=== PATIENT | male | born 1955 | race Caucasian/White ===

== ENCOUNTER → 2017-12-10 11:07 | Outpatient (CLI) | payer OTHER, SELFPAY ==
--- NOTE | 2017-12-10 11:11 | DI.NM.S_ITS ---
PROCEDURE: NM BONE SCAN WHOLE BODY RADIOPHARMACEUTICAL: 20.2 mCi Tc-99m MDP IV. INDICATIONS: PROSTATE CANCER TECHNIQUE: Delayed whole-body scintigrams were obtained approximately 3-4 hours after intravenous injection of radiotracer. Anterior and posterior views were acquired from vertex to feet. Additional left and right oblique views were not obtained. COMPARISON: Nuclear bone scan 02/16/2017; CT abdomen and pelvis 09/14/2017 FINDINGS: Small focus of increased tracer activity is again noted in the right lateral margin of the distal sternum. No other suspicious uptake seen. Typical degenerative type uptake noted in the shoulders, sternoclavicular joints, wrists and knees. Soft tissue uptake is unremarkable, kidneys appearing functional without obstruction IMPRESSION: 1. Small, solitary focus of abnormal tracer uptake in the inferior sternum, unchanged. Otherwise no abnormal uptake to suggest progressive metastatic bone disease. 2. Multiple areas of uptake compatible with degenerative joint disease. Dictated by: David Ramos M.D. on 12/10/2017 at 15:48 Approved by: David Ramos M.D. on 12/10/2017 at 15:54
== END ==
PROVIDERS: PCP Internal Medicine; Visit Provider Internal Medicine Hematology & Oncology
DX: C61 Malignant neoplasm of prostate (principal)
CPT/HCPCS: 78306; A9503

== ENCOUNTER → 2018-02-12 14:40 | Outpatient (CLI) | payer OTHER, SELFPAY ==
[2018-02-12 14:56] LABS: Add Manual Diff / Slide Review NO; Basophils Percent Auto 0.9 % (0-2); Eosinophils Percent Auto 1.8 % (2-4); Hematocrit 40.6 % (41-53); Hemoglobin 13.6 g/dL (13.5-17.5); Lymphocytes Percent Auto 16.6 % (25-40); Mean Corpuscular HGB Conc 33.6 % (30-36); Mean Corpuscular Hemoglobin 27.3 PG (26-34); Mean Corpuscular Volume 81.4 fL (80-100); Monocytes Percent Auto 8.3 % (3-14); Neutrophils Absolute Auto 6200 /uL (3000-5900); Neutrophils Percent Auto 72.4 % (50-75); Platelet Count 173 X10^3/uL (150-400); Red Blood Cell Count 4.98 X10^6/uL (4.5-5.9); Red Cell Distribution Width 15.7 % (11.6-14.8); White Blood Cell Count 8.6 X10^3/uL (4.5-11.0)
[2018-02-12 15:06] LABS: Alanine Aminotransferase 47 IU/L (21-72); Albumin 4.4 g/dL (3.5-5.0); Albumin Globulin Ratio 1.3 (1.0-2.8); Alkaline Phosphatase 115 U/L (38-126); Aspartate Aminotransferase 32 IU/L (17-59); Bilirubin Total 0.6 mg/dL (0.2-1.3); Blood Urea Nitrogen 20 mg/dL (9-20); Calcium 9.8 mg/dL (8.4-10.2); Carbon Dioxide 30 mmol/L (22-32); Chloride 100 mmol/L (98-107); Estimated Glomerular Filt Rate > 60.0 mL/min (>60); Globulin 3.3 g/dL (1.7-4.1); Glucose 111 mg/dL (80-110); HEMOLYSIS < 15 (0-50); Potassium 3.7 mmol/L (3.4-5.1); Sodium 142 mmol/L (137-145); Total Protein 7.7 g/dL (6.3-8.2)
[2018-02-14 15:39] LABS: Chromogranin A, Serum 78 ng/mL (25-140)
--- NOTE | 2018-02-14 16:12 | PC.NURSE ---
Note to ISAAC re testosterone level Rev Urol. spring; 11(2): 52?60. PMCID: [id number] PMID: [id number] Effective Testosterone Suppression for Prostate Cancer: Is There a Best Castration Therapy? Rojas Fuentes MD Achieving and maintaining effective suppression of serum testosterone levels in men treated with androgen ablation is one of the essential strategies in the management of prostate cancer. Historically, a serum testosterone below 50 ng/dL was considered to be the castrate level. Current data suggest that the new target for either surgical or chemical castration is a serum testosterone level of lower than 20 ng/dL in an attempt to maximize therapeutic outcomes. Testosterone breakthrough and the [id number] effects of administration of a luteinizing hormone-releasing hormone analogue may cause testosterone levels to periodically rise, sometimes to noncastrate levels. The goal of androgen ablation is to identify those agents that will most consistently achieve and maintain the lowest testosterone levels possible. Patel words: Prostate cancer, Androgen ablation, LHRH analogues, LHRH antagonists, Testosterone Priti -please see Dr Manuel's note from 01/24.Pt calling as Casodex was added to his therapy .He had a level done /added 01/24 it was in the 26.2 and had labs done for visit next week with you but without a testosterone level.Dr Manuel noted that if he was not castration level on his testosterone he might need to change to lupron from Zoladex. The last result was his highest yet in September testosterone was 19.2 Do you want to add a testosterone level to the blood that is still in lab for 5 more days ?
[2018-02-15 14:25] LABS: Testosterone 19.6 ng/dL (71.8-623)
== END ==
PROVIDERS: Internal Medicine Hematology & Oncology; PCP Internal Medicine; Visit Provider Nurse Practitioner Gerontology
DX: C61 Malignant neoplasm of prostate (principal); C7A.098 Malignant carcinoid tumors of other sites
CPT/HCPCS: 36415; 80053; 84153; 84403; 85025; 86316

== ENCOUNTER → 2018-04-19 12:05 | Outpatient (CLI) | payer OTHER, SELFPAY ==
[2018-04-19 12:37] LABS: Add Manual Diff / Slide Review NO; Basophils Percent Auto 0.3 % (0-2); Hematocrit 38.6 % (41-53); Lymphocytes Percent Auto 18.5 % (25-40); Mean Corpuscular HGB Conc 33.7 % (30-36); Mean Corpuscular Hemoglobin 27.8 PG (26-34); Mean Corpuscular Volume 82.4 fL (80-100); Monocytes Percent Auto 7.1 % (3-14); Neutrophils Absolute Auto 5600 /uL (3000-5900); Neutrophils Percent Auto 71.1 % (50-75); Platelet Count 151 X10^3/uL (150-400); Red Blood Cell Count 4.69 X10^6/uL (4.5-5.9); Red Cell Distribution Width 14.8 % (11.6-14.8); White Blood Cell Count 7.9 X10^3/uL (4.5-11.0)
[2018-04-19 12:38] LABS: HEMOLYSIS < 15 (0-50)
[2018-04-19 13:07] LABS: Alanine Aminotransferase 32 IU/L (21-72); Albumin 4.1 g/dL (3.5-5.0); Albumin Globulin Ratio 1.4 (1.0-2.8); Alkaline Phosphatase 111 U/L (38-126); Aspartate Aminotransferase 26 IU/L (17-59); BUN Creatinine Ratio 27.1 (6-22); Bilirubin Total 0.5 mg/dL (0.2-1.3); Blood Urea Nitrogen 19 mg/dL (9-20); Calcium 9.6 mg/dL (8.4-10.2); Carbon Dioxide 29 mmol/L (22-32); Chloride 103 mmol/L (98-107); Estimated Glomerular Filt Rate > 60.0 mL/min (>60); Globulin 2.9 g/dL (1.7-4.1); Glucose 114 mg/dL (80-110); Potassium 4.4 mmol/L (3.4-5.1); Sodium 144 mmol/L (137-145)
[2018-04-19 13:14] LABS: Testosterone 19.7 ng/dL (71.8-623)
== END ==
PROVIDERS: Family Provider Internal Medicine Hematology & Oncology; PCP Internal Medicine; Visit Provider Nurse Practitioner Gerontology
DX: C61 Malignant neoplasm of prostate (principal); C7A.098 Malignant carcinoid tumors of other sites
CPT/HCPCS: 36415; 80053; 84153; 84403; 85025

== ENCOUNTER → 2018-05-16 13:06 | Outpatient (CLI) | payer OTHER, SELFPAY ==
[2018-05-16 13:45] LABS: Add Manual Diff / Slide Review NO; Basophils Percent Auto 0.6 % (0-2); Eosinophils Percent Auto 1.8 % (2-4); Hematocrit 41.2 % (41-53); Hemoglobin 13.9 g/dL (13.5-17.5); Lymphocytes Percent Auto 23.6 % (25-40); Mean Corpuscular HGB Conc 33.6 % (30-36); Mean Corpuscular Hemoglobin 27.8 PG (26-34); Mean Corpuscular Volume 82.6 fL (80-100); Monocytes Percent Auto 7.7 % (3-14); Neutrophils Absolute Auto 5200 /uL (3000-5900); Neutrophils Percent Auto 66.3 % (50-75); Platelet Count 172 X10^3/uL (150-400); Red Blood Cell Count 4.99 X10^6/uL (4.5-5.9); Red Cell Distribution Width 14.9 % (11.6-14.8); White Blood Cell Count 7.8 X10^3/uL (4.5-11.0)
[2018-05-16 14:15] LABS: Alanine Aminotransferase 30 IU/L (21-72); Albumin 4.6 g/dL (3.5-5.0); Albumin Globulin Ratio 1.4 (1.0-2.8); Alkaline Phosphatase 107 U/L (38-126); Aspartate Aminotransferase 29 IU/L (17-59); BUN Creatinine Ratio 23.8 (6-22); Bilirubin Total 0.6 mg/dL (0.2-1.3); Blood Urea Nitrogen 19 mg/dL (9-20); Calcium 9.6 mg/dL (8.4-10.2); Carbon Dioxide 33 mmol/L (22-32); Chloride 100 mmol/L (98-107); Estimated Glomerular Filt Rate > 60.0 mL/min (>60); Globulin 3.2 g/dL (1.7-4.1); Glucose 92 mg/dL (80-110); HEMOLYSIS < 15 (0-50); Potassium 4.3 mmol/L (3.4-5.1); Sodium 141 mmol/L (137-145); Total Protein 7.8 g/dL (6.3-8.2)
--- NOTE | 2018-05-22 14:45 | ONC.NAV ---
Description: Counseling Activity: Met with pt to discuss his concerns and desire to begin individual counseling. PIPE LAYER met with pt for 60-minutes to establish initial rapport, discuss counseling goals, and establish a plan for treatment. This visit is intended as a meet and greet, and will not be billed. Pt and PIPE LAYER scheduled his next visit for 05/30 at 11:00am. PIPE LAYER will f/u with obtaining pre-auth for continued visits.
== END ==
PROVIDERS: Family Provider Internal Medicine Hematology & Oncology; PCP Internal Medicine; Visit Provider Internal Medicine Hematology & Oncology
DX: C61 Malignant neoplasm of prostate (principal); C7A.8 Other malignant neuroendocrine tumors
CPT/HCPCS: 36415; 80053; 84153; 85025

== ENCOUNTER → 2018-10-03 15:45 | Outpatient (CLI) | payer OTHER, SELFPAY ==
[2018-10-03 17:05] LABS: Alanine Aminotransferase 24 IU/L (21-72); Albumin 4.3 g/dL (3.5-5.0); Albumin Globulin Ratio 1.3 (1.0-2.8); Alkaline Phosphatase 110 U/L (38-126); Aspartate Aminotransferase 23 IU/L (17-59); BUN Creatinine Ratio 21.3 (6-22); Bilirubin Total 0.3 mg/dL (0.2-1.3); Blood Urea Nitrogen 17 mg/dL (9-20); Calcium 9.1 mg/dL (8.4-10.2); Carbon Dioxide 26 mmol/L (22-32); Chloride 102 mmol/L (98-107); Estimated Glomerular Filt Rate > 60.0 mL/min (>60); Globulin 3.3 g/dL (1.7-4.1); Glucose 132 mg/dL (80-110); Potassium 3.9 mmol/L (3.4-5.1); Sodium 137 mmol/L (137-145); Total Protein 7.6 g/dL (6.3-8.2)
[2018-10-03 17:06] LABS: HEMOLYSIS < 15 (0-50)
[2018-10-03 17:36] LABS: Prostate Specific Antigen 0.131 ng/mL (0.10-4.00)
[2018-10-03 17:38] LABS: Testosterone 28.6 ng/dL (71.8-623)
[2018-10-03 18:00] LABS: Add Manual Diff / Slide Review NO; Basophils Absolute Auto 0 /uL (0-100); Basophils Percent Auto 0.5 % (0-2); Eosinophils Absolute Auto 200 /uL (0-450); Eosinophils Percent Auto 2.8 % (2-4); Hematocrit 39.9 % (41-53); Hemoglobin 13.2 g/dL (13.5-17.5); Lymphocytes Absolute Auto 1700 /uL (1100-4500); Lymphocytes Percent Auto 23.3 % (25-40); Mean Corpuscular HGB Conc 33.2 % (30-36); Mean Corpuscular Hemoglobin 27.7 PG (26-34); Mean Corpuscular Volume 83.5 fL (80-100); Monocytes Absolute Auto 600 /uL (0-900); Monocytes Percent Auto 7.8 % (3-14); Neutrophils Absolute Auto 4800 /uL (1500-7000); Neutrophils Percent Auto 65.6 % (50-75); Platelet Count 173 X10^3/uL (150-400); Red Blood Cell Count 4.78 X10^6/uL (4.5-5.9); Red Cell Distribution Width 14.6 % (11.6-14.8); White Blood Cell Count 7.3 X10^3/uL (4.5-11.0)
== END ==
PROVIDERS: Family Provider Family Medicine; PCP Family Medicine
DX: C61 Malignant neoplasm of prostate (principal)
CPT/HCPCS: 80053; 84153; 84403; 85025

== ENCOUNTER → 2019-01-09 16:20 | Outpatient (CLI) | payer OTHER, SELFPAY ==
[2019-01-09 16:42] LABS: Add Manual Diff / Slide Review NO; Basophils Absolute Auto 0 /uL (0-100); Basophils Percent Auto 0.5 % (0-2); Eosinophils Absolute Auto 200 /uL (0-450); Eosinophils Percent Auto 2.2 % (2-4); Hemoglobin 13.3 g/dL (13.5-17.5); Lymphocytes Absolute Auto 1900 /uL (1100-4500); Lymphocytes Percent Auto 19.9 % (25-40); Mean Corpuscular HGB Conc 34.3 % (30-36); Mean Corpuscular Hemoglobin 27.6 PG (26-34); Mean Corpuscular Volume 80.6 fL (80-100); Monocytes Absolute Auto 700 /uL (0-900); Monocytes Percent Auto 7.7 % (3-14); Neutrophils Absolute Auto 6800 /uL (1500-7000); Neutrophils Percent Auto 69.7 % (50-75); Platelet Count 205 X10^3/uL (150-400); Red Blood Cell Count 4.83 X10^6/uL (4.5-5.9); Red Cell Distribution Width 15.1 % (11.6-14.8); White Blood Cell Count 9.8 X10^3/uL (4.5-11.0)
[2019-01-09 16:52] LABS: Alanine Aminotransferase 27 IU/L (21-72); Albumin 4.5 g/dL (3.5-5.0); Albumin Globulin Ratio 1.3 (1.0-2.8); Alkaline Phosphatase 119 U/L (38-126); Aspartate Aminotransferase 30 IU/L (17-59); BUN Creatinine Ratio 21.1 (6-22); Bilirubin Total 0.4 mg/dL (0.2-1.3); Blood Urea Nitrogen 19 mg/dL (9-20); Calcium 9.8 mg/dL (8.4-10.2); Carbon Dioxide 29 mmol/L (22-32); Chloride 101 mmol/L (98-107); Estimated Glomerular Filt Rate > 60.0 mL/min (>60); Globulin 3.4 g/dL (1.7-4.1); Glucose 94 mg/dL (80-110); HEMOLYSIS < 15 (0-50); Sodium 139 mmol/L (137-145); Total Protein 7.9 g/dL (6.3-8.2)
[2019-01-09 17:22] LABS: Prostate Specific Antigen 0.346 ng/mL (0.10-4.00)
== END ==
LOC: LAB 16:22
PROVIDERS: Family Provider Family Medicine; PCP Family Medicine
DX: C61 Malignant neoplasm of prostate (principal)
CPT/HCPCS: 36415; 80053; 84153; 85025

== ENCOUNTER → 2019-04-16 09:23 | Outpatient (CLI) | payer OTHER, SELFPAY ==
--- NOTE | 2019-04-16 09:26 | DI.NM.S_ITS ---
PROCEDURE: [place] BONE SCAN WHOLE BODY RADIOPHARMACEUTICAL: 19.8 mCi Tc-99m MDP IV. INDICATIONS: f/u prostate cancer TECHNIQUE: Delayed whole-body scintigrams were obtained approximately 3-4 hours after intravenous injection of radiotracer. Anterior and posterior views were acquired from vertex to feet. COMPARISON: [facility], CT, CT CHEST ABD PEL W CON, 04/16/2019, 12:35. [facility], [place], [place] BONE SCAN WHOLE BODY, 12/10/2017, 14:59. FINDINGS: There is a small focus of increased uptake in the right inferior sternum, unchanged since 12/10/2017. There is a focal uptake in the lower cervical spine, also similar, most likely degenerative in nature. No lesions are identified in skull, sternum, clavicles, scapulae, ribs, bony pelvis, and visualized shafts of the long bones. There are foci of increased periarticular activity involving shoulders, sternoclavicular jointswrists, SI joints, knees and feet, compatible with degenerative/arthritic changes. Urinary uptake in bladder partially obscure sacrum and pelvis. IMPRESSION: 1. Stable increased uptake in the inferior right sternal border. 2. increased uptake in the lower cervical spine is most likely degenerative in nature. 3. Elsewhere, no definitive scintigraphic findings to suggest osseous metastasis. Dictated by: Jayashree Henson M.D. on 04/16/2019 at 17:13 Approved by: Jayashree Henson M.D. on 04/16/2019 at 18:50
--- NOTE | 2019-04-16 09:26 | DI.CT.S_ITS ---
PROCEDURE: CT CHEST ABD PEL W CON INDICATIONS: f/u prostate cancer TECHNIQUE: After the administration of oral and intravenous contrast, 5 mm thick sections acquired from the lung apices to the symphysis. 5 mm coronal and sagittal reformats were performed, with additional 7 mm coronal MIP reformats through the lungs. For radiation dose reduction, the following was used: automated exposure control, adjustment of mA and/or kV according to patient size. COMPARISON: [facility], CT, ABDOMEN/PELVIS WITH CONTRAST, 09/14/2017, 10:56. [facility], [place], NM BONE SCAN WHOLE BODY, 04/16/2019, 12:43. [facility], CT, CT ANGIO CHEST ABDOMEN, 07/11/2018, 14:01. FINDINGS: Image quality: Excellent. CHEST: Lungs and pleura: No acute airspace opacities. No pleural effusions or pneumothorax. Central and peripheral airways appear patent and normal in caliber. Mediastinum: Heart size is normal. No pericardial effusion. There is a prominent AP window lymph node measuring 1.4 cm in short axis which has increased in size compared to the prior study. No other mediastinal or hilar adenopathy. Thoracic aorta and central pulmonary arteries are normal in size. Esophagus is normal in caliber. No hiatal hernia. Chest wall: No axillary or supraclavicular adenopathy by size criteria. Thyroid gland is normal. Moderate bilateral, right worse than left gynecomastia. ABDOMEN: Solid organs: Multilobulated and diffusely hypodense liver with scattered calcifications and surgical clips. No definite new liver lesions. Gallbladder is surgically absent. Biliary system is non dilated. Pancreas enhances normally. Spleen is normal in size and enhancement. No adrenal nodules. Kidneys demonstrate normal size and enhancement, without hydronephrosis. 2 course, nonobstructing left lower pole intrarenal calcifications are stable. Punctate nonobstructing right lower pole calculus. Peritoneum and bowel: Bowel loops demonstrate normal wall thickness and caliber. Right lower quadrant ileocolonic anastomosis is present. No free fluid or air. Nodes and vessels: No retroperitoneal or mesenteric adenopathy by size criteria. Aorta and inferior vena cava are normal in size. Miscellaneous: No ventral hernias. PELVIS: Genitourinary: Bladder wall thickness is normal. There are brachytherapy seeds in definitive size prostate gland. Miscellaneous: No inguinal hernias or adenopathy. Right buttock subcutaneous soft tissue nodule. Bones: No suspicious bony lesions. No vertebral body compression fractures. Degenerative disc loss L5-S1. IMPRESSION: 1. Diminutive prostate gland contains brachytherapy seeds. 2. No evidence of new metastatic disease in the chest, abdomen, or pelvis. 3. Mildly enlarged single AP window lymph node is nonspecific given this finding in isolation. Continued attention on followup studies is recommended. 4. Hypodense liver with changes of prior hepatectomy. 5. Nonobstructing bilateral intrarenal calculi. Dictated by: Wen Hinkle M.D. on 04/16/2019 at 14:09 Approved by: Wen Hinkle M.D. on 04/16/2019 at 14:24
== END ==
PROVIDERS: Family Provider Family Medicine; PCP Family Medicine
DX: C61 Malignant neoplasm of prostate (principal); R59.0 Localized enlarged lymph nodes; N20.0 Calculus of kidney; Z90.49 Acquired absence of other specified parts of digestive tract; Z98.0 Intestinal bypass and anastomosis status
CPT/HCPCS: 71260; 74177; 78306; A9503; Q9967

== ENCOUNTER → 2019-05-22 13:32 | Outpatient (CLI) | payer OTHER, SELFPAY ==
[2019-05-22 13:52] LABS: Add Manual Diff / Slide Review NO; Basophils Absolute Auto 0 /uL (0-100); Basophils Percent Auto 0.3 % (0-2); Eosinophils Absolute Auto 200 /uL (0-450); Eosinophils Percent Auto 2.7 % (2-4); Hematocrit 39.8 % (41-53); Hemoglobin 13.4 g/dL (13.5-17.5); Lymphocytes Absolute Auto 1700 /uL (1100-4500); Lymphocytes Percent Auto 18.2 % (25-40); Mean Corpuscular HGB Conc 33.7 % (30-36); Mean Corpuscular Hemoglobin 27.2 PG (26-34); Mean Corpuscular Volume 80.7 fL (80-100); Monocytes Absolute Auto 700 /uL (0-900); Monocytes Percent Auto 8.1 % (3-14); Neutrophils Absolute Auto 6500 /uL (1500-7000); Neutrophils Percent Auto 70.7 % (50-75); Platelet Count 185 X10^3/uL (150-400); Red Blood Cell Count 4.93 X10^6/uL (4.5-5.9); Red Cell Distribution Width 14.7 % (11.6-14.8); White Blood Cell Count 9.1 X10^3/uL (4.5-11.0)
[2019-05-22 15:24] LABS: Alanine Aminotransferase 31 IU/L (21-72); Albumin 4.3 g/dL (3.5-5.0); Albumin Globulin Ratio 1.4 (1.0-2.8); Alkaline Phosphatase 127 U/L (38-126); Aspartate Aminotransferase 31 IU/L (17-59); BUN Creatinine Ratio 27.1 (6-22); Bilirubin Total 0.6 mg/dL (0.2-1.3); Blood Urea Nitrogen 19 mg/dL (9-20); Calcium 9.9 mg/dL (8.4-10.2); Carbon Dioxide 29 mmol/L (22-32); Chloride 102 mmol/L (98-107); Estimated Glomerular Filt Rate > 60.0 mL/min (>60); Glucose 114 mg/dL (80-110); HEMOLYSIS < 15 (0-50); Potassium 3.7 mmol/L (3.4-5.1); Sodium 142 mmol/L (137-145); Total Protein 7.3 g/dL (6.3-8.2)
== END ==
LOC: LAB 13:33
PROVIDERS: Family Provider Family Medicine; PCP Family Medicine
DX: C61 Malignant neoplasm of prostate (principal)
CPT/HCPCS: 36415; 80053; 84153; 85025

== ENCOUNTER → 2019-06-23 13:17 | Outpatient (CLI) | payer OTHER, SELFPAY ==
[2019-06-23 13:57] LABS: Add Manual Diff / Slide Review NO; Basophils Absolute Auto 0 /uL (0-100); Basophils Percent Auto 0.5 % (0-2); Eosinophils Absolute Auto 200 /uL (0-450); Eosinophils Percent Auto 2.1 % (2-4); Hematocrit 39.2 % (41-53); Hemoglobin 13.2 g/dL (13.5-17.5); Lymphocytes Absolute Auto 1700 /uL (1100-4500); Lymphocytes Percent Auto 18.3 % (25-40); Mean Corpuscular HGB Conc 33.7 % (30-36); Mean Corpuscular Hemoglobin 27.2 PG (26-34); Mean Corpuscular Volume 80.8 fL (80-100); Monocytes Absolute Auto 700 /uL (0-900); Monocytes Percent Auto 7.6 % (3-14); Neutrophils Absolute Auto 6800 /uL (1500-7000); Neutrophils Percent Auto 71.5 % (50-75); Platelet Count 170 X10^3/uL (150-400); Red Blood Cell Count 4.85 X10^6/uL (4.5-5.9); Red Cell Distribution Width 14.7 % (11.6-14.8); White Blood Cell Count 9.5 X10^3/uL (4.5-11.0)
[2019-06-23 14:17] LABS: Alanine Aminotransferase 26 IU/L (<50); Albumin 4.2 g/dL (3.5-5.0); Albumin Globulin Ratio 1.3 (1.0-2.8); Alkaline Phosphatase 146 U/L (38-126); Aspartate Aminotransferase 28 IU/L (17-59); BUN Creatinine Ratio 22.5 (6-22); Bilirubin Total 0.5 mg/dL (0.2-1.3); Blood Urea Nitrogen 18 mg/dL (9-20); Calcium 9.4 mg/dL (8.4-10.2); Carbon Dioxide 32 mmol/L (22-32); Chloride 102 mmol/L (98-107); Estimated Glomerular Filt Rate > 60.0 mL/min (>60); Globulin 3.2 g/dL (1.7-4.1); Glucose 97 mg/dL (80-110); HEMOLYSIS < 15 (0-50); Potassium 3.8 mmol/L (3.4-5.1); Sodium 140 mmol/L (137-145); Total Protein 7.4 g/dL (6.3-8.2)
[2019-06-23 14:44] LABS: Prostate Specific Antigen 1.14 ng/mL (0.10-4.00)
== END ==
PROVIDERS: Family Provider Family Medicine; PCP Family Medicine
DX: C61 Malignant neoplasm of prostate (principal)
CPT/HCPCS: 36415; 80053; 84153; 85025

== ENCOUNTER 2019-10-06 08:48 | Day surgery (SDC) | payer OTHER, SELFPAY ==
[2019-10-06] VITALS (10 sets, daily range): BP systolic 154–192; BP diastolic 93–107; PULSE 64–73; RESP 12–17; TEMP 36.2–37.3; O2SAT 91–97; BMI 33.3
--- NOTE | 2019-10-06 | DI.RAD.S_ITS ---
PROCEDURE: XR CHEST 1V INDICATIONS: FABIAN CATH TECHNIQUE: One view of the chest was acquired. COMPARISON: [facility], CT, CT CHEST ABD PEL W CON, 04/16/2019, 12:35. [facility], CR, CHEST 1 VIEW, 06/27/2017, 13:00. [facility], CR, CHEST 2 VIEW, 11/13/2016, 16:11. FINDINGS: Surgical changes and devices: Port-A-Cath from a left-sided approach takes an unusual course vertically inferiorly and then crosses horizontally at the azygos arch level and then extends inferiorly into the distal SVC. There is an unusual mottled heterogeneity to the radiodensity over the left lateral chest wall and axillary area, which has an appearance most likely representing external pooling or warming device. Lungs and pleura: Lungs are clear. No pleural effusions or pneumothorax. Mediastinum: Mediastinal contours appear normal. Heart size is normal. Bones and chest wall: No suspicious bony lesions. Overlying soft tissues appear unremarkable. IMPRESSION: Port-A-Cath course as described, vertically oriented to the left of midline until it reaches the azygos arch axial level and then crosses the midline into the distal SVC. The exact anatomy couldn't be established utilizing CT scanning including noncontrast CT scanning. Nodular radiodensities over the left lateral chest and axilla area, as discussed above, presumably external to the patient and perhaps reflecting some form of cooling or warming device postoperatively. Please correlate clinically. Dictated by: Sahil Spicer M.D. on 10/06/2019 at 16:17 Approved by: Sahil Spicer M.D. on 10/06/2019 at 16:21
[2019-10-06] MEDS: LACTATED RINGERS 1,000 ML 100 ML IV ×2 (09:07→13:36)
--- NOTE | 2019-10-06 10:48 | P.HP_ITS ---
History of Present Illness History of Present Illness Date Patient Seen: 10/06/19 Time Patient Seen: 10:48 Chief complaint: [id number] Narrative: The patient is a gentleman The patient the patient is a gentlemanwho is about to undergo IV chemotherapy for prostate cancer and I was asked to place a port. 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) Tinnitus (Acute) Family & Social History Social History: household members spouse Tobacco & Substance use: Smoking Status Never smoker alcohol intake current alcohol intake frequency a few times a week Substance Use Type marijuana Meds Home Medications and Allergies Home Medications Medication Instructions Recorded Confirmed Type [CANNIBUS OIL] #0 06/01/17 History Zoladex #0 06/27/17 History lorazepam [Ativan] 0.5 mg PO QD-BID PRN 07/25/18 10/06/19 History nitroglycerin 0.4 mg SUBLINGUAL Q5-15M PRN 07/25/18 10/06/19 History sertraline [Zoloft] 50 mg PO DAILY 02/12/19 10/06/19 History ondansetron 8 mg PO Q8H 30 Days #30 tab 03/18/19 10/06/19 Rx abiraterone [Zytiga] 1,000 mg PO DAILY 30 Days #120 tab 05/28/19 10/06/19 Rx prednisone 5 mg PO BID 30 Days #60 tab 05/28/19 10/06/19 Rx Allergies Allergy/AdvReac Type Severity Reaction Status Date / Time oxycodone [From PERCOCET] Allergy Severe coma, Verified 10/06/19 09:09 epinephrine [EPINEPHRINE] AdvReac Intermediate Verified 10/06/19 09:09 shellfish derived AdvReac Intermediate Verified 10/06/19 09:09 [SHELLFISH DERIVED] nuts Allergy Unknown Uncoded 10/06/19 09:09 eggs AdvReac Severe unknown Uncoded 10/06/19 09:09 Review of Systems Review of Systems Narrative: patient denies any breathing problems at this time. He has a history of a heart attack due to untreated hypertension. He apparently had normal coronaries however on angiogram after The event. No black or bloody bowel movements. No seizures or blackouts Exam Vital Signs (past 8 hours): - 10/06/19 09:20 Temperature 98.8 F Pulse Rate 68 Respiratory Rate 16 Blood Pressure 192/107 H Pulse Oximetry 97 Oxygen Delivery Method Room Air Narrative Exam Narrative: operative no apparent distress. There are no nodes in the neck or supraclavicular areas. Trachea is midline mobile. Lungs are clear to auscultation no rales or rhonchi equal percussion heart regular rate and rhythm no murmur gallop no bruit in the neck. Patient is alert and oriented x3. Speech rate and content are appropriate Assessment & Plan Assessment & Plan narrative: patient with prostate cancer about to undergo chemotherapy. I have discussed placement of a port with him. He has had 1 on the right side in the past. He is [id number]. I will place this on the left. Talked to him about placement in the neck or in the subclavian vein. Risks of bleeding, infection, lung collapse which would probably require tube pl acement in his chest, DVT which might cause arm swelling or pulmonary embolism or all discussed with him. He appears to understand and wishes to proceed.
--- NOTE | 2019-10-06 10:54 | PM.PREOP ---
Pre-operative Note Interval Note History & Physical reviewed/Exam performed by Physician: Yes Changes to H&P: No
[2019-10-06] MEDS: CEFAZOLIN 2 GM/100 ML FROZ.PIGGY IV (11:10)
--- NOTE | 2019-10-06 11:48 | SUR.OPER ---
Addendum entered by Gwen Monreal R.N. 10/06/19 11:48: Previous positioning incorrect. Patient is Supine on padded OR table, Arms tucked at sides with gel padding in place, towel roll between shoulder blades. head on gel doughnut, safety belt over thighs. Original Note: Supine on padded OR bed, head on pillow, arms secured on padded arm boards at <90 degrees abduction, legs uncrossed, safety belt at thigh.
[2019-10-06] MEDS: HEPARIN 5,000 UNIT, SODIUM CHLORIDE 0.9% 50 ML IV (11:59)
[2019-10-06] MEDS: LIDOCAINE 1% 20 ML INJ (12:02)
--- NOTE | 2019-10-06 12:53 | PM.OP.1 ---
Operative Date/Time/Diagnoses Date of procedure: 10/06/19 Time of procedure: 12:54 Pre-op diagnosis: Prostate cancer Post-op diagnosis: same Procedure & Clinicians Procedure: placement of left internal jugular Port-A-Cath Same procedure as scheduled: Yes Indications: placement of Port-A-Cath Surgeon: Eric Garber Click Yes if Unassisted: Yes Anesthesia Type: General Operative Notes Findings: tip in the very proximal SVC at its junction with the right subclavian and the left inonimate Closure Type: primary Specimen(s): none sent Prosthetic devices, grafts, tissues, transplants, or devices: high profile Port-A-Cath Applied: catheter Estimated Blood Loss (mL): 10 Blood products transfused: none Procedure in detail: patient was placed supine on the operating table and underwent general LMA anesthesia had a roll was placed between his shoulders. He was prepped and draped in the usual fashion. Local anesthetic was infiltrated in a field block fashion on his chest. Local anesthetic was infiltrated near the proximal end of the junction of the sternal clavicular heads of the sternocleidomastoid. Small transverse incision was made and through this I attempted to find the internal jugular vein using a blind technique. After 2 attempts I obtain the ultrasound an even with the ultrasound was very difficult to cannulate the vein. It was unusually medial. Ultimately I was able to cannulate it and passed the guidewire. The guidewire was difficult to manipulate into this superior vena cava. I created a pocket on the chest wall and then passed a catheter from the pocket to the neck incision using the supplied device. . Once I had done so I then passed the dilator over The guidewire and then passed the dilator and introducer over it. In so doing the guidewire had to be pulled back and I was now at the junction of the right subclavian/ Internal jugular and superior vena cava. I pass the catheter through the introducer and appeared to go in the correct direction. I peeled away the introducer. The tip was well distal to where wanted and I began to back it out. I had to do so no matter what because my entire catheter was required to go from the superior vena cava to the neck and onto the chest wall. I hooked the end of the catheter to the port and placed in the pocket. At this point the tip had backed out into the very proximal end of the superior vena cava and I could not manipulate it back down further because of its length. the port was secured to the chest wall with interrupted silk sutures. The port was aspirated and flushed with heparinized saline. The subcu was closed with interrupted 3 over rule. The skin was closed running 4 0 Vicryl subcuticular stitch in both incisions and Mastisol and Steri-Strips applied. Dressing was applied the patient was awakened extubated taken recovery area in good condition. Complications: none Post-operative Condition: stable Disposition: PACU
[2019-10-06] MEDS: fentaNYL 100 MCG/2 ML INJ IV ×4 (13:15→13:30)
[2019-10-06] MEDS: HYDROCODONE/ACET 5/325 TABLET 1 TAB PO (14:23)
--- NOTE | 2019-10-06 14:24 | SUR.PHASEII ---
Rx for pain at neck site - pudding and fluids prior to Rx. Voided qs clear yellow urine. Spouse at bedside.
--- NOTE | 2019-10-06 14:55 | SUR.PHASEII ---
1425 Dr. Garber here, informed him of O2 sat 90-91%. Gave verbal OK for patient to go home. Dressing remain CDI. 1445 Pt dressing, to bathroom in wheelchair, voided without difficulty. All questions of pt/ answered. Stable/drowsy
== END 2019-10-06 14:51 | disposition home or self-care (01) ==
PROVIDERS: Family Provider Family Medicine; PCP Family Medicine; Referring Provider Family Medicine; Visit Provider Specialist
PROC: (CPT 36561; principal; 2019-10-06 09:45)
DX: C61 Malignant neoplasm of prostate (principal); Z45.2 Encounter for adjustment and management of vascular access device
CPT/HCPCS: 36561; 71045; 76000; C1788; J0690; J1100; J1644; J2250; J2405; J2704; J3010

== ENCOUNTER → 2019-10-07 08:32 | Outpatient (CLI) | payer OTHER, SELFPAY ==
--- NOTE | 2019-10-07 08:34 | DI.NM.S_ITS ---
PROCEDURE: PA BONE SCAN WHOLE BODY RADIOPHARMACEUTICAL: 19.1 mCi Tc-99m MDP IV. INDICATIONS: Prostate cancer TECHNIQUE: Delayed whole-body scintigrams were obtained approximately 3-4 hours after intravenous injection of radiotracer. Anterior and posterior views were acquired from vertex to feet. COMPARISON: [place], [place] BONE SCAN WHOLE BODY, 12/10/2017, 14:59. [facility], CT, CT CHEST ABD PEL W CON, 10/07/2019, 9:39. [facility], CT, CT CHEST ABD PEL W CON, 04/16/2019, 12:35. [place], [place] BONE SCAN WHOLE BODY, 04/16/2019, 12:43. FINDINGS: There is a focal uptake in the lower cervical spine, more intense compared to the last exam. The small focus of increased uptake in the right inferior sternum appears unchanged. No lesions are identified in skull, clavicles, scapulae, ribs, bony pelvis, and visualized shafts of the long bones. Foci of increased periarticular activity are unchanged, compatible with degenerative/arthritic changes. IMPRESSION: 1. Increased activity in the lower cervical spine is more intense compared to the last exam. This could represent metastatic disease. Please correlate with PSA. If clinically indicated, x-ray of the cervical spine or MRI with and without contrast is suggested. 2. Stable subtle increased uptake in the right inferior aspect of the sternum. Dictated by: Jayashree Henson M.D. on 10/07/2019 at 14:07 Approved by: Jayashree Henson M.D. on 10/08/2019 at 18:58
--- NOTE | 2019-10-07 09:56 | DI.CT.S_ITS ---
PROCEDURE: CT CHEST ABD PEL W CON INDICATIONS: Prostate cancer TECHNIQUE: After the administration of oral and intravenous contrast, 5 mm thick sections acquired from the lung apices to the symphysis. 5 mm coronal and sagittal reformats were performed, with additional 7 mm coronal MIP reformats through the lungs. For radiation dose reduction, the following was used: automated exposure control, adjustment of mA and/or kV according to patient size. COMPARISON: [facility], CT, CT CHEST ABD PEL W CON, 04/16/2019, 12:35. FINDINGS: Image quality: Excellent. CHEST: Lungs and pleura: No acute airspace opacities. No pleural effusions or pneumothorax. Central and peripheral airways appear patent and normal in caliber. Mediastinum: Heart size is normal. No pericardial effusion. No mediastinal or hilar adenopathy by size criteria. Thoracic aorta and central pulmonary arteries are normal in size. Esophagus is normal in caliber. No hiatal hernia. Chest wall: No axillary or supraclavicular adenopathy by size criteria. Thyroid gland appears normal where well seen. A Port-A-Cath is in normal position from left-sided approach.. ABDOMEN: Solid organs: Liver is normal in size and enhancement. Scattered small hepatic calcified radiodensities are seen consistent with old granulomatous disease. Gallbladder has been previously resected. Biliary system is non dilated. Pancreas enhances normally. Spleen is normal in size and enhancement. No adrenal nodules. Kidneys demonstrate normal size and enhancement, without hydronephrosis. There is a punctate 1 mm non-obstructive calculus within the junction of the middle and lower thirds of the right kidney. Within the left kidney the lower third there is a cluster of calyceal calculus, the largest of which measures up to approximately 6 mm, having an internal radiodensity of 732 Hounsfield units. Peritoneum and bowel: Bowel loops demonstrate normal wall thickness and caliber. No free fluid or air. Nodes and vessels: No retroperitoneal or mesenteric adenopathy by size criteria. Aorta and inferior vena cava are normal in size. Miscellaneous: No ventral hernias. PELVIS: Genitourinary: Bladder wall thickness is normal. Miscellaneous: No inguinal hernias or adenopathy. Surgical clips are noted at the prostate resection bed, no mass lesion in this area is present. No adenopathy is found. Incidental note is made of an enteric staple line at the right lower quadrant, previously present Bones: No suspicious bony lesions. No vertebral body compression fractures. IMPRESSION: 1. Expected postsurgical changes of prostatectomy. 2. No evidence of adenopathy found. 3. No osseous metastatic disease is seen. Note is made of prior enteric surgical procedure right lower quadrant. Bilateral nonobstructive renal collecting system calculi, no hydronephrosis found. Dictated by: Sahil Spicer M.D. on 10/07/2019 at 13:18 Approved by: Sahil Spicer M.D. on 10/07/2019 at 13:25
== END ==
LOC: RAD 08:33
PROVIDERS: Family Provider Family Medicine; PCP Family Medicine; Referring Provider Internal Medicine Hematology & Oncology; Visit Provider Internal Medicine Hematology & Oncology
DX: C61 Malignant neoplasm of prostate (principal); Z90.49 Acquired absence of other specified parts of digestive tract; N20.0 Calculus of kidney
CPT/HCPCS: 71260; 74177; 78306; A9503; Q9967

== ENCOUNTER → 2019-10-23 09:23 | Outpatient (CLI) | payer OTHER, SELFPAY ==
--- NOTE | 2019-10-23 | DI.MRI.S_ITS ---
PROCEDURE: MR CERVICAL SPINE WO/W CON INDICATIONS: ABNORMAL BONE SCAN TECHNIQUE: Noncontrast sagittal T1 spin echo and T2 fast spin echo, sagittal STIR, foraminal oblique sagittal T2 fast spin echo, axial gradient echo or T2 fast spin echo through the cervical spine. After the administration of contrast, axial and sagittal T1 spin echo with fat saturation through the cervical spine. COMPARISON: Outside Facility, [place], MRI COMPLETE SPINE, 10/29/2015, 11:08. [facility], CT, CT CHEST ABD PEL W CON, 10/07/2019, 9:39. [facility], [place], [place] BONE SCAN WHOLE BODY, 04/16/2019, 12:43. [place], [place], [place] BONE SCAN WHOLE BODY, 10/07/2019, 11:22. FINDINGS: Image quality: Excellent. Alignment and curvature: There is normal bony alignment. Marrow: Within the left aspect of the posterior C6 vertebral body, there is a suspicious focus seen that demonstrates decreased T1 weighted signal and increased T2-weighted signal with mild increased STIR signal. There is associated abnormal enhancement seen. No definite additional focally suspicious bone marrow lesions can be seen. Spinal cord: Visualized spinal cord has normal size and signal. No cerebellar tonsillar herniation. No abnormal intramedullary enhancement. Paraspinous soft tissues: No paravertebral masses or suspicious enhancement. C2-3: No significant abnormality is seen. C3-4: Moderate loss of disc height is seen. Loss of disc signal is seen. Moderate disc osteophyte complex is seen, which is eccentric to the right side. There is moderate right-sided and mild left-sided neural foraminal narrowing seen. There is moderate to severe right-sided and moderate left-sided neural foraminal narrowing seen. At least moderate central canal narrowing is seen, with associated mass effect upon the ventral spinal cord. C4-5: The disc height is well-preserved. Loss of disc signal is seen at this level. Mild to moderate disc osteophyte complex is seen. There is moderate right-sided and mild left-sided facet hypertrophy seen. There is moderate to severe right-sided and moderate left-sided neural foraminal narrowing seen. Mild to moderate central canal narrowing is seen. C5-6: Moderate to severe loss of disc height and disc signal can be seen. At least moderate disc osteophyte complex is seen, which is eccentric to the right side. There is moderate to severe bilateral neural foraminal narrowing seen, right worse than left. Moderate to severe central canal narrowing is seen, with associated ventral cord flattening, as on series 4 image 27. C6-7: Moderate loss of disc height is seen. Loss of disc signal is seen. Moderate generalized disc osteophyte complex is seen. Uncovertebral joint hypertrophy is seen at this level. Mild to moderate facet hypertrophy is seen. Moderate to severe bilateral neural foraminal narrowing is seen. Moderate to severe central canal narrowing is seen, with associated mass effect upon the ventral spinal cord. C7-T1: The disc height is well-preserved. Loss of disc signal is seen at this level. Mild to moderate disc osteophyte complex is seen. Mild facet joint hypertrophy is seen. Mild bilateral neural foraminal narrowing is seen. Mild central canal narrowing is seen. IMPRESSION: Findings within the C6 vertebral body are highly suspicious for metastatic disease, particularly given the bone scan appearance. Of note, this cannot be seen on the outside 2016 MRI examination, even in retrospect. Multiple levels of degenerative change are seen, which are overall most prominent at C5-C6 and C6-C7. The degenerative changes have progressed compared to 2016. Dictated by: Brijesh Mendez M.D. on 10/23/2019 at 9:47 Approved by: Brijesh Mendez M.D. on 10/23/2019 at 10:03
== END ==
PROVIDERS: Family Provider Family Medicine; PCP Family Medicine; Referring Provider Internal Medicine Hematology & Oncology; Visit Provider Internal Medicine Hematology & Oncology
DX: R94.8 Abnormal results of function studies of other organs and systems (principal); C61 Malignant neoplasm of prostate; M47.812 Spondylosis without myelopathy or radiculopathy, cervical region
CPT/HCPCS: 72156

== ENCOUNTER → 2020-02-02 11:00 | Oncology outpatient (ONC) | payer OTHER, SELFPAY ==
--- NOTE | 2018-01-21 08:47 | ONC.APRN.PN ---
Assessment and Plan (1) Prostate cancer Current visit: No Status: Acute 01/21/18 11:15 José Miguel is a 62-year-old male with prostate cancer also a remote history of metastatic carcinoid tumor, 1st diagnosed more than 30 years ago. Disease remains stable on zoladex as evidence by nuclear medicine whole body scan on December 10, 2017 without any evidence of new disease. Also, reassuringly, on exam today no clinical signs or symptoms of disease progression. he has lost weight over the last 3 months which is intentional he is on a fruit and lean protein diet along with his . CBC, CMP RTC in 3 months to meet new oncologist and cont zoladex 01/21/18 11:54 - Time Spent with Patient 35 mins PN -Subjective Interval history: Arslan da silva is a 62-year-old male with a remote history of metastatic carcinoid tumor, 1st diagnosed more than 30 years ago. He has been on long-term somatostatin support until April 2015. More recent confirmation of prostate cancer, confirmed via biopsy in July 2015. [place] score 8. No evidence of metastatic disease. Treatment in the form of Zoladex was initiated October 2015 followed by radiation therapy completed in January 2016. He had post treatment radiation proctitis and diarrhea for several months. Zoladex ultimately discontinued in spring because of severe side effects including memory loss, pain, anxiety, irritability, hot flashes, fatigue, weakness. He went back on Zoladex. During the interval he underwent whole-body bone scan December 10, 2017 which reassuringly did not demonstrate any evidence of new disease. He continues to have small, solitary focus of abnormal uptake in the inferior sternum, unchanged when compared to prior scan February 16, 2017 which was performed at [facility]. I reviewed via telephone with our radiologist Dr. Melton this morning to conform this was unchanged as I did not it in previous imaging Patient overall reports he feels ?excellent?. He has lost quite a bit of weight this is intentional. He and his are doing a fruit only with lean protein diet. He denies cough, fever, chills. Activity tolerance is quite good, has been improving over the last few months. No nausea or abdominal pain. Bowel and bladder habits are unchanged. No new musculoskeletal pain. No headaches. TIMELINE While living in [place] he states he had a routine evaluation and was found to have a PSA of 48. He underwent prostate biopsy in 07/2015 showing a [place] 8 adenocarcinoma, staging said to be negative for metastases. Notes from Dr. Josh Scott at [facility] indicate he began Zoladex in 10/2015 and completed radiation in 01/2016. He stopped androgen deprivation early, after 9 months, due to debilitating side effects,including memory loss, difficulty with day to day function, pain senistivity, anxiety and irritability, in addition to the expected side effects of hot flashes, fatigue, and lack of strength, according to Dr. Scott. He had radiation proctitis and diarrhea as well. His last dose of Zoladex was in 04/2016, according to Dr. Scott. On that visit, on 02/13/2017, his PSA was 3.28, having previously been at a maida post radiation of 0.4. Testosterone was 135, not unexpected as he had been off Zoladex for 9 months. On August 25, 2016, the PSA was .5 and [address] 14[address] A [address] and bone scan were performed. Bone scan 02/16/[address] chest/abdomen/pelvis 02/16/17 showed only an enlarged mesenteric node 1.5 x 2 cm with no other evidence of metstatic disease. After some thinking about the prior side effects, and considering going on to bicalutamide instead of goserelin, henelected t be treated with goserelin and started this here last month with orders from Dr. Scott. He is up for his next dose of Zoladex on Apr 27. He has tolerated this better than expected and plans t continue. We do not yet have a follow up PSA or testosterone level. Regarding his history of metastatic carcinoid, he stateshe was diagnosed at age 33 after developing flushing ad diarrhea, symptoms which he says he had for several years. He states he underwent cemoembolizaion in [place] for metastatic disease to the liver, but that there were complications and he was not happy with the experience. He first saw Dr. Reinier Hussein, a nationally recognized specialist in carcinoid tumors, in about 2002. Thus he has had metastatic carcinoid for about 28 years. He was on Sandostatin and switched to Somatulin 8 years ago. He stopped this 2 years ago and has presumably remained stable; the recent CT did not show recurrence with one mesenteric node observed to be enlarged. We do not have recent cromogranin A levels. He now lives in [place] and wants to consolidate his care, while keeping in touch with Dr. Hussein. Past Medical History The patient's past medical history is significant for: hypertension obesity, BMI 36 being referred for sleep apnea evaluation prior radiation proctitis hypothyroidism hyperlipidemia tonsillectomy heart murmur Results - Labs 01/21/18 11:40 01/21/18 11:40 Home Medications and Allergies Home Medications Medication Instructions Recorded Confirmed Type [CANNIBUS OIL] #0 06/01/17 History goserelin [Zoladex] #0 06/27/17 History Allergies Allergy/AdvReac Type Severity Reaction Status Date / Time oxycodone [From PERCOCET] Allergy Severe coma, Unverified 11/07/17 12:43 epinephrine [EPINEPHRINE] AdvReac Intermediate Unverified 11/07/17 12:43 shellfish derived AdvReac Intermediate Unverified 11/07/17 12:43 [SHELLFISH DERIVED] nuts Allergy Unknown Uncoded 11/07/17 12:43 eggs AdvReac Severe Uncoded 11/07/17 12:43 Exam Narrative: well appearing - Constitutional positive no acute distress - Routine HEENT Exam Head: Present: normocephalic, atraumatic Eye: Present: conjunctivae pink. Absent: conjunctival icterus, scleral injection ENT: Present: mucous membranes moist - Routine Neck Exam Present: supple, lymphadenopathy - Routine Respiratory Exam Present: Clear to auscultation bilaterally. Absent: rales, rhonchi, wheezes - Routine Cardiovascular Exam Present: RRR, S1, S2. Absent: murmur, gallop, rubs, JVD - Routine Abdominal Exam Present: soft, normoactive bowel sounds. Absent: tenderness, distended, organomegaly - Routine Extremities Exam Absent: edema, calf tenderness - Routine Skin Exam Present: intact, normal turgor. Absent: petechiae - Routine Neurological Exam Present: oriented X3 - Routine Psychiatric Exam Present: normal affect, normal thought process, good insight
[2018-01-21 11:27] VITALS: BP 153/90; PULSE 68; RESP 18; TEMP 36.2
[2018-01-21 11:59] LABS: Add Manual Diff / Slide Review NO; Basophils Percent Auto 0.5 % (0-2); Eosinophils Percent Auto 2.5 % (2-4); Hematocrit 39.9 % (41-53); Hemoglobin 13.3 g/dL (13.5-17.5); Lymphocytes Percent Auto 20.1 % (25-40); Mean Corpuscular HGB Conc 33.5 % (30-36); Mean Corpuscular Hemoglobin 27.4 PG (26-34); Mean Corpuscular Volume 81.8 fL (80-100); Monocytes Percent Auto 8.6 % (3-14); Neutrophils Absolute Auto 5000 /uL (3000-5900); Neutrophils Percent Auto 68.3 % (50-75); Platelet Count 161 X10^3/uL (150-400); Red Blood Cell Count 4.88 X10^6/uL (4.5-5.9); Red Cell Distribution Width 15.6 % (11.6-14.8); White Blood Cell Count 7.3 X10^3/uL (4.5-11.0)
[2018-01-21 12:10] LABS: Alanine Aminotransferase 48 IU/L (21-72); Albumin 4.3 g/dL (3.5-5.0); Albumin Globulin Ratio 1.3 (1.0-2.8); Alkaline Phosphatase 116 U/L (38-126); Aspartate Aminotransferase 36 IU/L (17-59); BUN Creatinine Ratio 28.6 (6-22); Bilirubin Total 0.6 mg/dL (0.2-1.3); Blood Urea Nitrogen 20 mg/dL (9-20); Calcium 9.5 mg/dL (8.4-10.2); Carbon Dioxide 28 mmol/L (22-32); Chloride 103 mmol/L (98-107); Estimated Glomerular Filt Rate > 60.0 mL/min (>60); Globulin 3.3 g/dL (1.7-4.1); Glucose 99 mg/dL (80-110); HEMOLYSIS < 15 (0-50); Sodium 142 mmol/L (137-145); Total Protein 7.6 g/dL (6.3-8.2)
[2018-01-21 12:40] LABS: Thyroid Stimulating Hormone 2.22 uIU/mL (0.47-4.68)
[2018-01-21] MEDS: [UNRECOGNIZED DRUG - OTHER] SUBCUT (12:55)
[2018-01-24 10:02] VITALS: BP 149/84; PULSE 70; RESP 18; TEMP 36.8; O2SAT 98
--- NOTE | 2018-01-24 10:51 | P.PNONC_ITS ---
Assessment and Plan (1) Prostate cancer Current visit: No Status: Acute 01/24/18 10:54 62-year-old gentleman with 29 half years history of regionally advanced prostate cancer [place] score 8. He has had treatment several institutions and locations. I am seeing him today for the 1st time. He has been treated initially with androgen deprivation and concomitant radiation in early 2015. He has recurrent disease as reflected in rising PSA and potential abdominal lymph node involvement. His CT scan of abdomen and pelvis of September 14, 2017 at [facility] had shown a stable 2.1 cm mesenteric lymph node and several others in that area that are less than 2 cm in size. He had a recent bone scan on December 10, 2017 that was negative for evidence of skeletal metastases. Older records and course reviewed. His PSA has significantly increased from 0.6-3.6 within a 3 months. He is currently on Zoladex every 3 months which he received last on January 21, 2018. He clearly has signs of by chemical disease progression on single agent androgen deprivation therapy. I recommended to check his serum testosterone level to make sure that it is at castration level and if not consider changing Zoladex to Lupron. Otherwise Zoladex should continue indefinitely. I am adding back Casodex orally at 50 mg daily and prescription was given to him. He will certainly required wall androgen deprivation therapy at this point and I explained to him that mechanism of developing hormone refractory prostate cancer which eventually will occur. Once he has clear evidence of disease progression on combination of Zoladex plus Casodex we would then consider in castration resistant prostate cancer and consider switching oral Casodex to Zytiga while continuing Zoladex injections. I added a serum chromogranin a level to be drawn with next lab in 4 weeks to monitor his history of carcinoid tumor but at this point he has no measurable disease, except for the fact that those lymph nodes in the mesentery have not been biopsied and we are assuming that they might be containing prostate cancer but it is possible that they will be related to his carcinoid. He has no signs or symptoms of hormonally active carcinoid at this point. He will return in 1 month for follow-up of lab studies. His next Zoladex injection will be due in lieu end of March. He will follow up after [place] with the new oncology providers. (2) Malignant carcinoid tumors of other sites Current visit: No Status: Acute - Time Spent with Patient Approximately 45 min were spent in counseling and coordination of care PN -Subjective Interval history: This is a pleasant 62-year-old gentleman whom I am seeing for the 1st time today , we use the see Dr. Stanton, regarding recurrent prostate cancer presumably involving abdominal lymph nodes based on adenopathy to a low degree on CT scan. Older records and data reviewed. Summary of previous exposure to therapy as outlined in the note of Priti Zaman that is transferred below. The interpretation of the mild adenopathy in his abdomen is somewhat obscured given the coexisting history of metastatic carcinoid initially diagnosed 30 years ago and managed with surgical resection and protracted period of time on somatostatin analog. He has been off of that therapy for the past few years after his diagnosis of prostate cancer in early 2015. He has received androgen deprivation therapy and pelvic radiation followed by a period of adjuvant androgen deprivation treatment with Zoladex which was then discontinued after 9 months because of side effects. He had a.m. increase in PSA earlier this year and was started back on Zoladex which he tolerated. He did have a rise of PSA while on Zoladex and therefore his physician suggested to add Casodex. He took additional oral Casodex which improved his PSA but he preferred to come off of that and therefore over the past several months he has been without oral Casodex. The dual androgen deprivation was effective bring in his PSA down to a maida of around 0.6 as of 2 -3 months ago but the reading from January 21 had significantly increased to 3.6 His Zoladex has been switched to every three-month schedule at 10.8 mg and he had it on Sunday January 21, 2018. For some reason he is tolerating Zoladex better than when he received it in early 2015. He has no symptoms of concern regarding carcinoid syndrome TIMELINE While living in [place] he states he had a routine evaluation and was found to have a PSA of 48. He underwent prostate biopsy in 07/2015 showing a [place] 8 adenocarcinoma, staging said to be negative for metastases. Notes from Dr. Josh Scott at [facility] indicate he began Zoladex in 10/2015 and completed radiation in 01/2016. He stopped androgen deprivation early, after 9 months, due to debilitating side effects,including memory loss, difficulty with day to day function, pain senistivity, anxiety and irritability, in addition to the expected side effects of hot flashes, fatigue, and lack of strength, according to Dr. Scott. He had radiation proctitis and diarrhea as well. His last dose of Zoladex was in 04/2016, according to Dr. Scott. On that visit, on 02/13/2017, his PSA was 3.28, having previously been at a maida post radiation of 0.4. Testosterone was 135, not unexpected as he had been off Zoladex for 9 months. On August 25, 2016, the PSA was .5 and testosterone 14. A CT and bone scan were performed. Bone scan 02/16/[address] chest/abdomen/pelvis 02/16/17 showed only an enlarged mesenteric node 1.5 x 2 cm with no other evidence of metstatic disease. After some thinking about the prior side effects, and considering going on to bicalutamide instead of goserelin, henelected t be treated with goserelin and started this here last month with orders from Dr. Scott. He is up for his next dose of Zoladex on Apr 27. He has tolerated this better than expected and plans t continue. We do not yet have a follow up PSA or testosterone level. Regarding his history of metastatic carcinoid, he stateshe was diagnosed at age 33 after developing flushing ad diarrhea, symptoms which he says he had for several years. He states he underwent cemoembolizaion in [place] for metastatic disease to the liver, but that there were complications and he was not happy with the experience. He first saw Dr. Reinier Hussein, a nationally recognized specialist in carcinoid tumors, in about 2002. Thus he has had metastatic carcinoid for about 28 years. He was on Sandostatin and switched to Somatulin 8 years ago. He stopped this 2 years ago and has presumably remained stable; the recent CT did not show recurrence with one mesenteric node observed to be enlarged. We do not have recent cromogranin A levels. He now lives in [place] and wants to consolidate his care, while keeping in touch with Dr. Hussein. Past Medical History The patient's past medical history is significant for: hypertension obesity, BMI 36 being referred for sleep apnea evaluation prior radiation proctitis hypothyroidism hyperlipidemia tonsillectomy heart murmur - Patient Self-Reported Symptoms SR Constitution: Fatigue/Malaise - Additional ROS All systems PM: reviewed and no additional remarkable complaints except as stated Results - Labs 01/21/18 11:40 01/21/18 11:40 Laboratory Last Values WBC 7.3 X10^3/uL (4.5-11.0) 01/21/18 11:40 RBC 4.88 X10^6/uL (4.5-5.9) 01/21/18 11:40 Hgb 13.3 g/dL (13.5-17.5) L 01/21/18 11:40 Hct 39.9 % (41-53) L 01/21/18 11:40 MCV 81.8 fL (80-100) 01/21/18 11:40 MCH 27.4 PG (26-34) 01/21/18 11:40 MCHC 33.5 % (30-36) 01/21/18 11:40 RDW 15.6 % (11.6-14.8) H 01/21/18 11:40 Plt Count 161 X10^3/uL (150-400) 01/21/18 11:40 Neut % (Auto) 68.3 % (50-75) 01/21/18 11:40 Lymph % (Auto) 20.1 % (25-40) L 01/21/18 11:40 [place] % (Auto) 8.6 % (3-14) 01/21/18 11:40 Eos % (Auto) 2.5 % (2-4) 01/21/18 11:40 Baso % (Auto) 0.5 % (0-2) 01/21/18 11:40 Neut # (Auto) 5000 /uL (9502-9324) 01/21/18 11:40 Sodium 142 mmol/L (137-145) 01/21/18 11:40 Potassium 4.0 mmol/L (3.4-5.1) 01/21/18 11:40 Chloride 103 mmol/L (98-107) 01/21/18 11:40 Carbon Dioxide 28 mmol/L (22-32) 01/21/18 11:40 BUN 20 mg/dL (9-20) 01/21/18 11:40 Creatinine 0.70 mg/dL (0.66-1.25) 01/21/18 11:40 Estimated GFR > 60.0 mL/min (>60) 01/21/18 11:40 BUN/Creatinine Ratio 28.6 (6-22) H 01/21/18 11:40 Glucose 99 mg/dL (80-110) 01/21/18 11:40 Calcium 9.5 mg/dL (8.4-10.2) 01/21/18 11:40 Total Bilirubin 0.6 mg/dL (0.2-1.3) 01/21/18 11:40 AST 36 IU/L (17-59) 01/21/18 11:40 ALT 48 IU/L (21-72) 01/21/18 11:40 Alkaline Phosphatase 116 U/L (38-126) 01/21/18 11:40 Total Protein 7.6 g/dL (6.3-8.2) 01/21/18 11:40 Albumin 4.3 g/dL (3.5-5.0) 01/21/18 11:40 Globulin 3.3 g/dL (1.7-4.1) 01/21/18 11:40 Albumin/Globulin Ratio 1.3 (1.0-2.8) 01/21/18 11:40 Prostate Specific Ag 3.600 ng/mL (0.10-4.00) 01/21/18 11:40 TSH 2.22 uIU/mL (0.47-4.68) 01/21/18 11:40 Home Medications and Allergies Home Medications Medication Instructions Recorded Confirmed Type [CANNIBUS OIL] #0 06/01/17 History goserelin [Zoladex] #0 06/27/17 History bicalutamide [Casodex] 50 mg PO DAILY #30 tab 01/24/18 Rx Allergies Allergy/AdvReac Type Severity Reaction Status Date / Time oxycodone [From PERCOCET] Allergy Severe coma, Unverified 11/07/17 12:43 epinephrine [EPINEPHRINE] AdvReac Intermediate Unverified 11/07/17 12:43 shellfish derived AdvReac Intermediate Unverified 11/07/17 12:43 [SHELLFISH DERIVED] nuts Allergy Unknown Uncoded 11/07/17 12:43 eggs AdvReac Severe Uncoded 11/07/17 12:43 Exam Vital signs: Last Vital Signs Temp 98.2 F 01/24/18 10:02 Pulse 70 01/24/18 10:02 Resp 18 01/24/18 10:02 BP 149/84 H 01/24/18 10:02 Pulse Ox 98 01/24/18 10:02 - Constitutional positive no acute distress - Routine Neck Exam Present: supple - Routine Chest/Breast/Axilla Exam Axillae: Absent: lymphadenopathy - Routine Respiratory Exam Present: Clear to auscultation bilaterally - Routine Cardiovascular Exam Present: RRR. Absent: murmur - Routine Extremities Exam Absent: edema
[2018-01-24 15:38] LABS: Testosterone 26.2 ng/dL (71.8-623)
[2018-02-21 13:46] VITALS: BP 134/88; PULSE 67; RESP 18; TEMP 36.2; O2SAT 96
--- NOTE | 2018-02-21 14:16 | ONC.APRN.PN ---
Assessment and Plan (1) Prostate cancer Current visit: No Status: Acute 02/21/18 14:19 62-year-old male who carries a diagnosis of recurrent regionally advanced prostate cancer with a Enio score of 8. He has had treatment at several institutions and locations. Currently receiving treatment in the form of every 3 month Zoladex with concurrent Casodex which was recently added in December 2017 due to rising PSA and testosterone levels. Patient feeling tired and weak since starting Casodex. Reassuringly his PSA is down as is testosterone. February 12 PSA 1.69 whereas in December of 2017 it was 3.6. Additionally, testosterone February 12.6 January 24 it was 26. Patient concerned about ?other causes? of fatigue. We will check a TSH, iron panel, B12 at next visit which will be in 1 months time. We will also check CBC, CMP, PSA, testosterone. I would like for the patient to meet 1 of our new oncologist at his next visit. Patient and his agree with the above plan of care. AST, ALT remain within normal limits. Random glucose is also within normal limits at 111. - Time Spent with Patient 30 mins PN -Subjective Interval history: José Miguel is a 62-year-old male who is being seen in the clinic February 21, 2018. He carries a diagnosis of regionally advanced prostate cancer with a Enio score of 8. Previously he had elected to go off Zoladex noting he was feeling terrible while taking it and discontinued without consulting a provider. Subsequently he had a rise in both his PSA and testosterone. He then had a consultation with Dr Manuel and subsequently back on zoladex along with concurrent casodex. Since resuming zoladex and initiating casodex the patient reports increased fatigue and weakness. Also having some headaches. Patient states he feels pretty good in the morning however he tends to be tired toward the end of the day. He recently also had a dramatic change to his diet, drastically cut back on his caloric intake. Eating only fruits and vegetables. No meat, no FISH, no dairy. Also patient has elected to discontinue his blood pressure medicine noting these medications were also making him feel bad. Otherwise no changes to report. Bowel and bladder habits remain unchanged. No shortness of breath. No unexplained bleeding or bruising, no rashes or lesions. Chief complaint remains fatigue and weakness. He is concerned about his thyroid, iron levels, also B12. Consult note Dr Manuel December 2017 This is a pleasant 62-year-old gentleman whom I am seeing for the 1st time today , we use the see Dr. Stanton, regarding recurrent prostate cancer presumably involving abdominal lymph nodes based on adenopathy to a low degree on CT scan. Older records and data reviewed. Summary of previous exposure to therapy as outlined in the note of Priti Zaman that is transferred below. The interpretation of the mild adenopathy in his abdomen is somewhat obscured given the coexisting history of metastatic carcinoid initially diagnosed 30 years ago and managed with surgical resection and protracted period of time on somatostatin analog. He has been off of that therapy for the past few years after his diagnosis of prostate cancer in early 2015. He has received androgen deprivation therapy and pelvic radiation followed by a period of adjuvant androgen deprivation treatment with Zoladex which was then discontinued after 9 months because of side effects. He had a.m. increase in PSA earlier this year and was started back on Zoladex which he tolerated. He did have a rise of PSA while on Zoladex and therefore his physician suggested to add Casodex. He took additional oral Casodex which improved his PSA but he preferred to come off of that and therefore over the past several months he has been without oral Casodex. The dual androgen deprivation was effective bring in his PSA down to a maida of around 0.6 as of 2-3 months ago but the reading from January 21 had significantly increased to 3.6 His Zoladex has been switched to every three-month schedule at 10.8 mg and he had it on Sunday January 21, 2018. For some reason he is tolerating Zoladex better than when he received it in early 2015. He has no symptoms of concern regarding carcinoid syndrome TIMELINE While living in [place] he states he had a routine evaluation and was found to have a PSA of 48. He underwent prostate biopsy in 07/2015 showing a Fertile 8 adenocarcinoma, staging said to be negative for metastases. Notes from Dr. Josh Scott at [facility] indicate he began Zoladex in 10/2015 and completed radiation in 01/2016. He stopped androgen deprivation early, after 9 months, due to debilitating side effects,including memory loss, difficulty with day to day function, pain senistivity, anxiety and irritability, in addition to the expected side effects of hot flashes, fatigue, and lack of strength, according to Dr. Scott. He had radiation proctitis and diarrhea as well. His last dose of Zoladex was in 04/2016, according to Dr. Scott. On that visit, on 02/13/2017, his PSA was 3.28, having previously been at a maida post radiation of 0.4. Testosterone was 135, not unexpected as he had been off Zoladex for 9 months. On August 25, 2016, the PSA was .5 and testosterone 14. A CT and bone scan were performed. Bone scan 02/16/[address] chest/abdomen/pelvis 02/16/17 showed only an enlarged mesenteric node 1.5 x 2 cm with no other evidence of metstatic disease. After some thinking about the prior side effects, and considering going on to bicalutamide instead of goserelin, henelected t be treated with goserelin and started this here last month with orders from Dr. Scott. He is up for his next dose of Zoladex on Apr 27. He has tolerated this better than expected and plans t continue. We do not yet have a follow up PSA or testosterone level. Regarding his history of metastatic carcinoid, he stateshe was diagnosed at age 33 after developing flushing ad diarrhea, symptoms which he says he had for several years. He states he underwent cemoembolizaion in [place] for metastatic disease to the liver, but that there were complications and he was not happy with the experience. He first saw Dr. Reinier Hussein, a nationally recognized specialist in carcinoid tumors, in about 2002. Thus he has had metastatic carcinoid for about 28 years. He was on Sandostatin and switched to Somatulin 8 years ago. He stopped this 2 years ago and has presumably remained stable; the recent CT did not show recurrence with one mesenteric node observed to be enlarged. We do not have recent cromogranin A levels. He now lives in [place] and wants to consolidate his care, while keeping in touch with Dr. Hussein. Past Medical History The patient's past medical history is significant for: hypertension obesity, BMI 36 being referred for sleep apnea evaluation prior radiation proctitis hypothyroidism hyperlipidemia tonsillectomy heart murmur - Patient Self-Reported Symptoms SR Constitution: Fatigue/Malaise Results - Labs 01/21/18 11:40 01/21/18 11:40 Laboratory Last Values WBC 7.3 X10^3/uL (4.5-11.0) 01/21/18 11:40 RBC 4.88 X10^6/uL (4.5-5.9) 01/21/18 11:40 Hgb 13.3 g/dL (13.5-17.5) L 01/21/18 11:40 Hct 39.9 % (41-53) L 01/21/18 11:40 MCV 81.8 fL (80-100) 01/21/18 11:40 MCH 27.4 PG (26-34) 01/21/18 11:40 MCHC 33.5 % (30-36) 01/21/18 11:40 RDW 15.6 % (11.6-14.8) H 01/21/18 11:40 Plt Count 161 X10^3/uL (150-400) 01/21/18 11:40 Neut % (Auto) 68.3 % (50-75) 01/21/18 11:40 Lymph % (Auto) 20.1 % (25-40) L 01/21/18 11:40 Early % (Auto) 8.6 % (3-14) 01/21/18 11:40 Eos % (Auto) 2.5 % (2-4) 01/21/18 11:40 Baso % (Auto) 0.5 % (0-2) 01/21/18 11:40 Neut # (Auto) 5000 /uL ([id number]) 01/21/18 11:40 Sodium 142 mmol/L (137-145) 01/21/18 11:40 Potassium 4.0 mmol/L (3.4-5.1) 01/21/18 11:40 Chloride 103 mmol/L (98-107) 01/21/18 11:40 Carbon Dioxide 28 mmol/L (22-32) 01/21/18 11:40 BUN 20 mg/dL (9-20) 01/21/18 11:40 Creatinine 0.70 mg/dL (0.66-1.25) 01/21/18 11:40 Estimated GFR > 60.0 mL/min (>60) 01/21/18 11:40 BUN/Creatinine Ratio 28.6 (6-22) H 01/21/18 11:40 Glucose 99 mg/dL (80-110) 01/21/18 11:40 Calcium 9.5 mg/dL (8.4-10.2) 01/21/18 11:40 Total Bilirubin 0.6 mg/dL (0.2-1.3) 01/21/18 11:40 AST 36 IU/L (17-59) 01/21/18 11:40 ALT 48 IU/L (21-72) 01/21/18 11:40 Alkaline Phosphatase 116 U/L (38-126) 01/21/18 11:40 Total Protein 7.6 g/dL (6.3-8.2) 01/21/18 11:40 Albumin 4.3 g/dL (3.5-5.0) 01/21/18 11:40 Globulin 3.3 g/dL (1.7-4.1) 01/21/18 11:40 Albumin/Globulin Ratio 1.3 (1.0-2.8) 01/21/18 11:40 Prostate Specific Ag 3.600 ng/mL (0.10-4.00) 01/21/18 11:40 TSH 2.22 uIU/mL (0.47-4.68) 01/21/18 11:40 Testosterone Level 26.2 ng/dL (71.8-623) L 01/24/18 14:46 Home Medications and Allergies Home Medications Medication Instructions Recorded Confirmed Type [CANNIBUS OIL] #0 06/01/17 History goserelin [Zoladex] #0 06/27/17 History bicalutamide [Casodex] 50 mg PO DAILY #30 tab 01/24/18 Rx Allergies Allergy/AdvReac Type Severity Reaction Status Date / Time oxycodone [From PERCOCET] Allergy Severe coma, Unverified 11/07/17 12:43 epinephrine [EPINEPHRINE] AdvReac Intermediate Unverified 11/07/17 12:43 shellfish derived AdvReac Intermediate Unverified 11/07/17 12:43 [SHELLFISH DERIVED] nuts Allergy Unknown Uncoded 11/07/17 12:43 eggs AdvReac Severe Uncoded 11/07/17 12:43 Exam Vital signs: Last Vital Signs Temp 97.1 F L 02/21/18 13:46 Pulse 67 02/21/18 13:46 Resp 18 02/21/18 13:46 BP 134/88 H 02/21/18 13:46 Pulse Ox 96 02/21/18 13:46 Narrative: non toxic appearing - Constitutional positive no acute distress - Routine HEENT Exam Head: Present: normocephalic, atraumatic Eye: Present: conjunctivae pink. Absent: conjunctival icterus, scleral injection ENT: Present: mucous membranes moist, oropharynx clear - Routine Neck Exam Present: supple. Absent: lymphadenopathy - Routine Chest/Breast/Axilla Exam Axillae: Absent: lymphadenopathy, mass, tenderness - Routine Respiratory Exam Present: Clear to auscultation bilaterally - Routine Cardiovascular Exam Present: RRR - Routine Abdominal Exam Present: soft. Absent: normoactive bowel sounds, tenderness, distended, organomegaly, mass - Routine Extremities Exam Absent: edema, calf tenderness - Routine Skin Exam Present: intact, normal turgor. Absent: petechiae, rash - Routine Neurological Exam Present: alert, oriented X3 - Routine Psychiatric Exam Present: normal affect
--- NOTE | 2018-03-20 10:59 | ONC.SCHED ---
New referral requested from [facility] 03/20/18
--- NOTE | 2018-03-21 10:20 | ONC.APRN.PN ---
Assessment and Plan (1) Prostate cancer Current visit: No Status: Acute 03/21/18 10:21 José Miguel is a 63-year-old male who is being seen in the clinic March 21 2018. He carries a diagnosis of regionally advanced prostate cancer with a Enio score of 8. Previously he had elected to go off Zoladex noting he was feeling terrible while taking it and discontinued without consulting a provider. Subsequently he had a rise in both his PSA and testosterone. He then had a consultation with Dr Manuel and subsequently back on zoladex along with concurrent casodex. Continues to complain of fatigue. This is a chronic complaint. he does use marijuana this may be contributing. Today we did check a B12, TSH, iron panelin addition to PSA and testosterone levels. These results remain pending at time of dictation I have asked the patient to call later today or tomorrow for these results. The rest of his CBC, CMP largely unremarkable, stable. RTC in 1 months time for provider visit hopefully he can establish with 1 of our new oncologist. He will also be due for his q.3 months Zoladex. We will also check CBC, CMP, PSA, testosterone. 03/21/18 11:20 - Time Spent with Patient 25 mins w pt 5 mins before and after review of notes, labs, dictation PN -Subjective Interval history: José Miguel is a 63-year-old male who is being seen in the clinic March 21 2018. He carries a diagnosis of regionally advanced prostate cancer with a Enio score of 8. Previously he had elected to go off Zoladex noting he was feeling terrible while taking it and discontinued without consulting a provider. Subsequently he had a rise in both his PSA and testosterone. He then had a consultation with Dr Manuel and subsequently back on zoladex along with concurrent casodex. Since resuming zoladex and initiating casodex the patient reports increased fatigue and weakness. He requires a daily afternoon nap and after which the pt reports he still does not feel energized. Patient states he feels pretty good in the morning however he tends to be tired toward the end of the day. He recently also had a dramatic change to his diet, drastically cut back on his caloric intake. Eating only fruits and vegetables. No meat, no FISH, no dairy. Also patient has elected to discontinue his blood pressure medicine noting these medications were also making him feel bad. NO new pain, no headaches, no new lumps or bumps. Otherwise no changes to report. Bowel and bladder habits remain unchanged. No shortness of breath. No unexplained bleeding or bruising, no rashes or lesions. Chief complaint remains fatigue and weakness. He is concerned about his thyroid, iron levels, also B12 which we have checked today, results pending at time of dictation Consult note Dr Manuel December 2017 This is a pleasant 62-year-old gentleman whom I am seeing for the 1st time today , we use the see Dr. Stanton, regarding recurrent prostate cancer presumably involving abdominal lymph nodes based on adenopathy to a low degree on CT scan. Older records and data reviewed. Summary of previous exposure to therapy as outlined in the note of Priti Zaman that is transferred below. The interpretation of the mild adenopathy in his abdomen is somewhat obscured given the coexisting history of metastatic carcinoid initially diagnosed 30 years ago and managed with surgical resection and protracted period of time on somatostatin analog. He has been off of that therapy for the past few years after his diagnosis of prostate cancer in early 2015. He has received androgen deprivation therapy and pelvic radiation followed by a period of adjuvant androgen deprivation treatment with Zoladex which was then discontinued after 9 months because of side effects. He had a.m. increase in PSA earlier this year and was started back on Zoladex which he tolerated. He did have a rise of PSA while on Zoladex and therefore his physician suggested to add Casodex. He took additional oral Casodex which improved his PSA but he preferred to come off of that and therefore over the past several months he has been without oral Casodex. The dual androgen deprivation was effective bring in his PSA down to a maida of around 0.6 as of 2-3 months ago but the reading from January 21 had significantly increased to 3.6 His Zoladex has been switched to every three-month schedule at 10.8 mg and he had it on Sunday January 21, 2018. For some reason he is tolerating Zoladex better than when he received it in early 2015. He has no symptoms of concern regarding carcinoid syndrome TIMELINE While living in [place] he states he had a routine evaluation and was found to have a PSA of 48. He underwent prostate biopsy in 07/2015 showing a Enio 8 adenocarcinoma, staging said to be negative for metastases. Notes from Dr. Josh Scott at [facility] indicate he began Zoladex in 10/2015 and completed radiation in 01/2016. He stopped androgen deprivation early, after 9 months, due to debilitating side effects,including memory loss, difficulty with day to day function, pain senistivity, anxiety and irritability, in addition to the expected side effects of hot flashes, fatigue, and lack of strength, according to Dr. Scott. He had radiation proctitis and diarrhea as well. His last dose of Zoladex was in 04/2016, according to Dr. Scott. On that visit, on 02/13/2017, his PSA was 3.28, having previously been at a maida post radiation of 0.4. Testosterone was 135, not unexpected as he had been off Zoladex for 9 months. On August 25, 2016, the PSA was .5 and testosterone 14. A CT and bone scan were performed. Bone scan 02/16/[address] chest/abdomen/pelvis 02/16/17 showed only an enlarged mesenteric node 1.5 x 2 cm with no other evidence of metstatic disease. After some thinking about the prior side effects, and considering going on to bicalutamide instead of goserelin, henelected t be treated with goserelin and started this here last month with orders from Dr. Scott. He is up for his next dose of Zoladex on Apr 27. He has tolerated this better than expected and plans t continue. We do not yet have a follow up PSA or testosterone level. Regarding his history of metastatic carcinoid, he stateshe was diagnosed at age 33 after developing flushing ad diarrhea, symptoms which he says he had for several years. He states he underwent cemoembolizaion in [place] for metastatic disease to the liver, but that there were complications and he was not happy with the experience. He first saw Dr. Reinier Hussein, a nationally recognized specialist in carcinoid tumors, in about 2002. Thus he has had metastatic carcinoid for about 28 years. He was on Sandostatin and switched to Somatulin 8 years ago. He stopped this 2 years ago and has presumably remained stable; the recent CT did not show recurrence with one mesenteric node observed to be enlarged. We do not have recent cromogranin A levels. He now lives in [place] and wants to consolidate his care, while keeping in touch with Dr. Hussein. Past Medical History The patient's past medical history is significant for: hypertension obesity, BMI 36 being referred for sleep apnea evaluation prior radiation proctitis hypothyroidism hyperlipidemia tonsillectomy heart murmur - Patient Self-Reported Symptoms SR Constitution: Fatigue/Malaise Results - Labs Laboratory Last Values WBC 7.3 X10^3/uL (4.5-11.0) 01/21/18 11:40 RBC 4.88 X10^6/uL (4.5-5.9) 01/21/18 11:40 Hgb 13.3 g/dL (13.5-17.5) L 01/21/18 11:40 Hct 39.9 % (41-53) L 01/21/18 11:40 MCV 81.8 fL (80-100) 01/21/18 11:40 MCH 27.4 PG (26-34) 01/21/18 11:40 MCHC 33.5 % (30-36) 01/21/18 11:40 RDW 15.6 % (11.6-14.8) H 01/21/18 11:40 Plt Count 161 X10^3/uL (150-400) 01/21/18 11:40 Neut % (Auto) 68.3 % (50-75) 01/21/18 11:40 Lymph % (Auto) 20.1 % (25-40) L 01/21/18 11:40 [place]verick % (Auto) 8.6 % (3-14) 01/21/18 11:40 Eos % (Auto) 2.5 % (2-4) 01/21/18 11:40 Baso % (Auto) 0.5 % (0-2) 01/21/18 11:40 Neut # (Auto) 5000 /uL ([id number]) 01/21/18 11:40 Sodium 142 mmol/L (137-145) 01/21/18 11:40 Potassium 4.0 mmol/L (3.4-5.1) 01/21/18 11:40 Chloride 103 mmol/L (98-107) 01/21/18 11:40 Carbon Dioxide 28 mmol/L (22-32) 01/21/18 11:40 BUN 20 mg/dL (9-20) 01/21/18 11:40 Creatinine 0.70 mg/dL (0.66-1.25) 01/21/18 11:40 Estimated GFR > 60.0 mL/min (>60) 01/21/18 11:40 BUN/Creatinine Ratio 28.6 (6-22) H 01/21/18 11:40 Glucose 99 mg/dL (80-110) 01/21/18 11:40 Calcium 9.5 mg/dL (8.4-10.2) 01/21/18 11:40 Total Bilirubin 0.6 mg/dL (0.2-1.3) 01/21/18 11:40 AST 36 IU/L (17-59) 01/21/18 11:40 ALT 48 IU/L (21-72) 01/21/18 11:40 Alkaline Phosphatase 116 U/L (38-126) 01/21/18 11:40 Total Protein 7.6 g/dL (6.3-8.2) 01/21/18 11:40 Albumin 4.3 g/dL (3.5-5.0) 01/21/18 11:40 Globulin 3.3 g/dL (1.7-4.1) 01/21/18 11:40 Albumin/Globulin Ratio 1.3 (1.0-2.8) 01/21/18 11:40 Prostate Specific Ag 3.600 ng/mL (0.10-4.00) 01/21/18 11:40 TSH 2.22 uIU/mL (0.47-4.68) 01/21/18 11:40 Testosterone Level 26.2 ng/dL (71.8-623) L 01/24/18 14:46 Home Medications and Allergies Home Medications Medication Instructions Recorded Confirmed Type [CANNIBUS OIL] #0 06/01/17 History goserelin [Zoladex] #0 06/27/17 History bicalutamide [Casodex] 50 mg PO DAILY #30 tab 01/24/18 Rx Allergies Allergy/AdvReac Type Severity Reaction Status Date / Time oxycodone [From PERCOCET] Allergy Severe coma, Unverified 11/07/17 12:43 epinephrine [EPINEPHRINE] AdvReac Intermediate Unverified 11/07/17 12:43 shellfish derived AdvReac Intermediate Unverified 11/07/17 12:43 [SHELLFISH DERIVED] nuts Allergy Unknown Uncoded 11/07/17 12:43 eggs AdvReac Severe Uncoded 11/07/17 12:43 Exam Vital signs: Last Vital Signs Temp 97.1 F L 02/21/18 13:46 Pulse 67 02/21/18 13:46 Resp 18 02/21/18 13:46 BP 134/88 H 02/21/18 13:46 Pulse Ox 96 02/21/18 13:46 - Constitutional positive no acute distress - Routine HEENT Exam Eye: Present: conjunctivae pink. Absent: conjunctival icterus, scleral injection ENT: Present: mucous membranes moist, oropharynx clear - Routine Neck Exam Present: supple. Absent: lymphadenopathy - Routine Chest/Breast/Axilla Exam Axillae: Absent: lymphadenopathy, mass, tenderness - Routine Respiratory Exam Present: Clear to auscultation bilaterally. Absent: rales, rhonchi, wheezes - Routine Cardiovascular Exam Present: RRR, S1, S2. Absent: murmur, gallop, rubs, JVD - Routine Abdominal Exam Present: soft, normoactive bowel sounds. Absent: tenderness, distended, organomegaly, mass - Routine Extremities Exam Absent: edema, calf tenderness - Routine Skin Exam Present: intact, normal turgor. Absent: petechiae, rash - Routine Neurological Exam Present: alert, oriented X3 - Routine Psychiatric Exam Present: normal affect
[2018-03-21 10:23] LABS: Add Manual Diff / Slide Review NO; Basophils Percent Auto 0.7 % (0-2); Eosinophils Percent Auto 3.5 % (2-4); Hematocrit 38.3 % (41-53); Lymphocytes Percent Auto 20.8 % (25-40); Mean Corpuscular HGB Conc 33.8 % (30-36); Mean Corpuscular Hemoglobin 27.4 PG (26-34); Mean Corpuscular Volume 80.9 fL (80-100); Monocytes Percent Auto 7.5 % (3-14); Neutrophils Absolute Auto 4800 /uL (3000-5900); Neutrophils Percent Auto 67.5 % (50-75); Platelet Count 155 X10^3/uL (150-400); Red Blood Cell Count 4.73 X10^6/uL (4.5-5.9); White Blood Cell Count 7.1 X10^3/uL (4.5-11.0)
[2018-03-21 10:38] LABS: Alanine Aminotransferase 30 IU/L (21-72); Albumin 4.3 g/dL (3.5-5.0); Albumin Globulin Ratio 1.4 (1.0-2.8); Alkaline Phosphatase 107 U/L (38-126); Aspartate Aminotransferase 29 IU/L (17-59); BUN Creatinine Ratio 25.7 (6-22); Bilirubin Total 0.5 mg/dL (0.2-1.3); Blood Urea Nitrogen 18 mg/dL (9-20); Calcium 9.4 mg/dL (8.4-10.2); Carbon Dioxide 29 mmol/L (22-32); Chloride 100 mmol/L (98-107); Estimated Glomerular Filt Rate > 60.0 mL/min (>60); Glucose 111 mg/dL (80-110); HEMOLYSIS < 15 (0-50); Potassium 4.2 mmol/L (3.4-5.1); Sodium 140 mmol/L (137-145); Total Protein 7.3 g/dL (6.3-8.2)
[2018-03-21 10:40] LABS: HEMOLYSIS < 15 (0-50); Iron 60 ug/dL (49-181)
[2018-03-21 10:50] LABS: Percent Iron Saturation 18 % (20-50); Total Iron Binding Capacity 342 ug/dL (261-462); Transferrin 274 mg/dL (206-381)
[2018-03-21 10:51] VITALS: BP 136/86; PULSE 60; RESP 18; TEMP 37; O2SAT 95
--- NOTE | 2018-03-21 11:03 | ONC.NAV ---
Description: Medical Marijuana Authorization Activity: Assisted pt in completing a renewed MMA for the next year. Provider signed it and pt took it with them after their visit today. No other needs identified at this time.
[2018-03-21 11:11] LABS: Testosterone 18.4 ng/dL (71.8-623)
[2018-03-21 11:26] LABS: Vitamin B12 489 pg/mL (239-931)
--- NOTE | 2018-04-18 11:38 | ONC.SCHED ---
ZOLADEX DOES NOT REQUIRE PRIOR AUTH PER [facility]
--- NOTE | 2018-04-22 18:49 | ONC.PN ---
PN -Subjective Interval history: José Miguel Carrillo is a 63-year-old gentleman with castrate resistant non metastatic prostate cancer. He has a remote history of metastatic well-differentiated neuroendocrine tumor. He was under care of Dr. Hussein, the surgeon expert in neuroendocrine tumors, at [facility] in [place]. He was treated with hepatic arterial chemoinfusion and chemoembolization with some good response in liver metastases, and was on somatostatin analog therapy for a long time, eventually quit in 2014 as he had stable prolonged non symptomatic disease. He has no current issues with NET. In 2014 while living in [place], his PSA was found to be 48. He came back and underwent a prostate biopsy in 07/2015 at [facility], which was positive for [place] 4+4 adenocarcinoma. There was no evidence of stefany or distant metastases. He started Zoladex in 10/2015, and received a course of definitive radiotherapy from 11/2015 through 01/2016. Initially he had major side effects to Zoladex, and stopped after his injection in 04/2016, but resumed Zoladex in combination with Casodex in 03/2017 when PSA meagan to 3.28. He had major side effects from both, and eventually stopped Casodex in 07/2017. Then for few months he felt well even though he maintained Zoladex. Then again recently when PSA meagan to 3.6 on 01/21/2018 (from 0.6 2-3 months prior), Casodex was added again in 12/2017. Most recent PSA is 1.34 on 04/19/2018. Today, he is due for his Zoladex injection, which is being rescheduled to tomorrow. He indicates that since Casodex was added back in 12/2017, he has not felt very well. He describes periods of feeling very fatigued which brings on depression. He describes that a few days ago he was to the point that he was literally suicidal. Because of this, I have permanently discontinued Casodex as of today. I have also discussed with him recent trial and approval of apalutamide which is a novel anti androgen, approved for non metastatic castrate resistant prostate cancer (such as his case, and has showed significant overall survival advantage as compared to placebo when added to androgen deprivation therapy. He would like to try this. We discussed that side effects are generally similar to Casodex, but there are ways to dose adjust with this medication. The standard dose is 240 mg once daily (4 tablets of 60 mg once daily, with or without food), but depending on tolerance, it can be reduced to 180 or 120 mg once daily. Recent labs on 04/19/18 include a normal CBC, a normal CMP, PSA 1.34, chromogranin a 78 (WNL). - Patient Self-Reported Symptoms SR Constitution: Fatigue/Malaise Home Medications and Allergies Home Medications Medication Instructions Recorded Confirmed Type [CANNIBUS OIL] #0 06/01/17 History goserelin [Zoladex] #0 06/27/17 History bicalutamide [Casodex] 50 mg PO DAILY #30 tab 01/24/18 Rx Allergies Allergy/AdvReac Type Severity Reaction Status Date / Time oxycodone [From PERCOCET] Allergy Severe coma, Unverified 11/07/17 12:43 epinephrine [EPINEPHRINE] AdvReac Intermediate Unverified 11/07/17 12:43 shellfish derived AdvReac Intermediate Unverified 11/07/17 12:43 [SHELLFISH DERIVED] nuts Allergy Unknown Uncoded 11/07/17 12:43 eggs AdvReac Severe Uncoded 11/07/17 12:43 Exam Vital signs: Last Vital Signs Temp 98.6 F 03/21/18 10:51 Pulse 60 03/21/18 10:51 Resp 18 03/21/18 10:51 BP 136/86 H 03/21/18 10:51 Pulse Ox 95 03/21/18 10:51 - Constitutional positive no acute distress - Routine HEENT Exam Head: Present: normocephalic, atraumatic Eye: Present: EOMI - Routine Neck Exam Present: supple. Absent: lymphadenopathy - Routine Respiratory Exam Present: Clear to auscultation bilaterally - Routine Cardiovascular Exam Present: RRR - Routine Abdominal Exam Present: soft. Absent: organomegaly, mass - Routine Extremities Exam Absent: edema Results - Labs Laboratory Last Values WBC 7.1 X10^3/uL (4.5-11.0) 03/21/18 10:13 RBC 4.73 X10^6/uL (4.5-5.9) 03/21/18 10:13 Hgb 13.0 g/dL (13.5-17.5) L 03/21/18 10:13 Hct 38.3 % (41-53) L 03/21/18 10:13 MCV 80.9 fL (80-100) 03/21/18 10:13 MCH 27.4 PG (26-34) 03/21/18 10:13 MCHC 33.8 % (30-36) 03/21/18 10:13 RDW 15.0 % (11.6-14.8) H 03/21/18 10:13 Plt Count 155 X10^3/uL (150-400) 03/21/18 10:13 Neut % (Auto) 67.5 % (50-75) 03/21/18 10:13 Lymph % (Auto) 20.8 % (25-40) L 03/21/18 10:13 [place] % (Auto) 7.5 % (3-14) 03/21/18 10:13 Eos % (Auto) 3.5 % (2-4) 03/21/18 10:13 Baso % (Auto) 0.7 % (0-2) 03/21/18 10:13 Neut # (Auto) 4800 /uL (1104-8311) 03/21/18 10:13 Sodium 140 mmol/L (137-145) 03/21/18 10:13 Potassium 4.2 mmol/L (3.4-5.1) 03/21/18 10:13 Chloride 100 mmol/L (98-107) 03/21/18 10:13 Carbon Dioxide 29 mmol/L (22-32) 03/21/18 10:13 BUN 18 mg/dL (9-20) 03/21/18 10:13 Creatinine 0.70 mg/dL (0.66-1.25) 03/21/18 10:13 Estimated GFR > 60.0 mL/min (>60) 03/21/18 10:13 BUN/Creatinine Ratio 25.7 (6-22) H 03/21/18 10:13 Glucose 111 mg/dL (80-110) H 03/21/18 10:13 Calcium 9.4 mg/dL (8.4-10.2) 03/21/18 10:13 Iron 60 ug/dL (49-181) 03/21/18 10:13 TIBC 342 ug/dL (261-462) 03/21/18 10:13 % Saturation 18 % (20-50) L 03/21/18 10:13 Transferrin 274 mg/dL (206-381) 03/21/18 10:13 Total Bilirubin 0.5 mg/dL (0.2-1.3) 03/21/18 10:13 AST 29 IU/L (17-59) 03/21/18 10:13 ALT 30 IU/L (21-72) 03/21/18 10:13 Alkaline Phosphatase 107 U/L (38-126) 03/21/18 10:13 Total Protein 7.3 g/dL (6.3-8.2) 03/21/18 10:13 Albumin 4.3 g/dL (3.5-5.0) 03/21/18 10:13 Globulin 3.0 g/dL (1.7-4.1) 03/21/18 10:13 Albumin/Globulin Ratio 1.4 (1.0-2.8) 03/21/18 10:13 Prostate Specific Ag 1.270 ng/mL (0.10-4.00) 03/21/18 10:13 Vitamin B12 489 pg/mL (239-931) 03/21/18 10:13 TSH 3.80 uIU/mL (0.47-4.68) 03/21/18 10:13 Testosterone Level 18.4 ng/dL (71.8-623) L 03/21/18 10:13 Assessment and Plan (1) Prostate cancer Current visit: No Status: Chronic Non metastatic castrate resistant prostate adenocarcinoma. This patient cannot tolerate Casodex and I have permanently discontinued that. Instead I recommend a trial of new anti androgen, apalutamide, which has showed survival benefit among patients with non metastatic castrate resistant prostate cancer. We will process the prescription through his insurance. He will try standard dose 240 mg once daily, but depending on tolerance, the dosage can be reduced to 180 or 120 mg. We discussed potential side effects including edema, fatigue, hot flashes, HTN, hypercholesterolemia, hypertriglyceridemia and hyperglycemia. The side effects will need to be closely monitored. If he was not able to tolerate apalutamide or the insurance did not cover, then I would recommend abiraterone/prednisone combination. We have scheduled a follow-up with Dr. Jiménez in 4 weeks. (2) Neuroendocrine carcinoma metastatic to liver Current visit: Yes Status: Chronic This patient has longstanding, 20+ year history of metastatic well-differentiated NET to liver. At this point he remains non symptomatic, is not on therapy, and there is no evidence of radiographic progression. Continue monitoring for liver metastases and mesenteric lymph nodes on future CT scans, and every few months, will check serum chromogranin A. Is currently normal as of last check 04/19/2018.
--- NOTE | 2018-04-23 10:09 | ONC.NAV ---
Description: T/C re: financial assistance for Erleada Activity: Called and left a message for pt that he may be eligible for co-pay assistance through [employer] for the Erleada. Encouraged him to call me after he has been told by the [place] pharmacist how much his out of pocket will be for this medication, if he would like to explore assistance options.
[2018-04-23 13:29] VITALS: BP 151/94; PULSE 64; RESP 16; TEMP 36.9
[2018-04-23] MEDS: [UNRECOGNIZED DRUG - OTHER] SUBCUT (13:42)
--- NOTE | 2018-05-09 10:31 | ONC.NAV ---
Description: T/C re: [facility] Financial Assistance Activity: Called [facility] to find out if pt's financial assistance for his Carmelita has been approved. They stated that the financial assistance department is scheduled to review it tomorrow. Called pt's to share this update. She expressed that they are feeling very anxious and frustrated, however, Thomas is still within the 2-week time period for their review process. AUDIT CONTROL CLERK will check back again tomorrow.
--- NOTE | 2018-05-14 12:56 | ONC.NAV ---
Description: T/C-[facility] re: Carmelita Activity: Called [facility] to clarify if pt's financial assistance application has been approved for the above medication. They state that he was just approved as of today, for the full $2000 per month that would have been pt's out of pocket responsibility. Called pt's , Kristy, to relay this information. She then called, and confirmed that they have already received the script from Dr. Deleon, and will be working to deliver his meds in approx. 3-days. No further action required.
--- NOTE | 2018-05-20 10:28 | ONC.NAV ---
Description: Disabled Parking Permit Activity: Completed a new disabled parking permit for pt to take with him after his provider appointment today. Will plan to meet with patient when he arrives to schedule a counseling visit with this KIDS CLUB ATTENDANT, per his request.
--- NOTE | 2018-05-20 14:34 | ONC.PN ---
PN -Subjective Interval history: Chief complaint José Miguel Carrillo is a 63-year-old gentleman with castrate resistant non metastatic prostate cancer. Oncological history He has a remote history of metastatic well-differentiated neuroendocrine tumor. He was under care of Dr. Hussein, the surgeon expert in neuroendocrine tumors, at [facility] in [place]. He was treated with hepatic arterial chemoinfusion and chemoembolization with some good response in liver metastases, and was on somatostatin analog therapy for a long time, eventually quited in 2014 as he had stable prolonged non symptomatic disease. He has no current issues with NET. In 2014 while living in [place], his PSA was found to be 48. He came back and underwent a prostate biopsy in 07/2015 at [facility], which was positive for [place] 4+4 adenocarcinoma. There was no evidence of stefany or distant metastases. He started Zoladex in 10/2015, and received a course of definitive radiotherapy from 11/2015 through 01/2016. Initially he had major side effects to Zoladex, and stopped after his injection in 04/2016, but resumed Zoladex in combination with Casodex in 03/2017 when PSA meagan to 3.28. He had major side effects from both, and eventually stopped Casodex in 07/2017. Then for few months he felt well even though he maintained Zoladex. Then again recently when PSA meagan to 3.6 on 01/21/2018 (from 0.6 2-3 months prior), Casodex was added again in 12/2017. PSA was 1.34 on 04/19/2018. He indicates that since Casodex was added back in 12/2017, he has not felt very well. He describes periods of feeling very fatigued which brings on depression to the point that he was literally suicidal. He saw Dr. Hope on 04/22/2018, and Dr. Hope permanently discontinued patient's Casodex due to the suicital ideation. Dr. Hope then recommended Apalutamide. Interim events: He found 3 articles on [facility] and read about them and was upset. He is worried about that his cancer may progress more quickly. He is on Zoladex 10.8 mg once every 3 months. He started Apalutamide 05/17/2018, 4# daily. He tolerated well. No fatigue. No anything on this. He is still having hot flashes. No mood changes. His carcinoid symptoms including hot flushing and diarrhea have completely gone. He said his chemo-infusion seems to have completely knock it out. He saw Dr Hussein in 2014 and sandostain was permanently stopped. He is now using 50/50 THC/CBC (Meraz Oil) and it seems to be helpful. - Patient Self-Reported Symptoms SR Constitution: Fatigue/Malaise - Additional ROS All systems PM: reviewed and no additional remarkable complaints except as stated Home Medications and Allergies Home Medications Medication Instructions Recorded Confirmed Type [CANNIBUS OIL] #0 06/01/17 History goserelin [Zoladex] #0 06/27/17 History apalutamide [Erleada] 05/20/18 History Allergies Allergy/AdvReac Type Severity Reaction Status Date / Time oxycodone [From PERCOCET] Allergy Severe coma, Unverified 11/07/17 12:43 epinephrine [EPINEPHRINE] AdvReac Intermediate Unverified 11/07/17 12:43 shellfish derived AdvReac Intermediate Unverified 11/07/17 12:43 [SHELLFISH DERIVED] nuts Allergy Unknown Uncoded 11/07/17 12:43 eggs AdvReac Severe Uncoded 11/07/17 12:43 Exam Vital signs: Temp 98.2 F 05/20/18 14:36 Pulse 62 05/20/18 14:36 Resp 18 05/20/18 14:36 BP 139/86 05/20/18 14:36 Pulse Ox 94 05/20/18 14:36 ECOG 1 Narrative: Constitutional: Well developed, well nourished, obese, not in any acute respiratory distress, cooperative. HEENT: Normocephalic atraumatic. Extraocular muscle movement intact. Pupils are round, equal and reactive to light and accommodations. Anicteric sclera. No hearing difficulty; Oral mucus membrane moist and without ulcers. Neck: Supple, symmetrical, and tracheal midline; No palpable thyromegaly and no palpable lymph nodes. Respiratory: No use of accessory muscles. Clear to auscultation, and no wheezes or rales or rubs. Cardiovascular: Regular rate and rhythm, S1 and S2 normal, no murmurs gallops or rubs. No JVD. No pitting edema of lower extremities. Abdomen: Soft, nontender, non-distended, bowel sounds normal, no palpable organomegaly, no hernia, no palpable masses. Lower extremities: No palpable pedal edema. Lymphatic: no palpable lymph nodes in the neck, axillae, or groins. Musculoskeletal: normal gait and station, no clubbing, no cyanosis, no pitting edema. Skin: no rashes, no ulcers, no petechiae Neurological: Awake and alert and oriented x3. CN II-XII grossly intact. No focal motor or sensory deficit. Psychiatric: Good judgment, good insight, normal affect, normal thought process, cooperative, no depression, no anxiety. Results - Labs Labs from May 16, 2018: WBC 7.8, hemoglobin 13.9, hematocrit 41.2, platelets 172, sodium 141, potassium 4.3, chloride 100, carbon dioxide 33, BUN 19, creatinine 0.8, glucose level 92, calcium 9.6, total bilirubin 0.6, AST 29, ALT 30, alk-phos 107, total protein 7.8, albumin 4.6, globulin 3.2, PSA level 2.18. Assessment and Plan (1) Prostate cancer Non metastatic castrate resistant prostate adenocarcinoma. He just started treatment with Apalutamide on May 17, 2018. Up until today, patient has tolerated the medication extremely well. Especially he denies any fatigue and depression which was associated with Casodex use in the past. I talked with him and his that will monitor closely as far as the possible side effects are concerned. Plan: 1. Continue Goserelin 10.8 mg every 3 months, next due 07/23/2018 2. Continue Apalutamide 240 mg daily 3. RTC in 2 weeks, repeat CBC, CMP and PSA/T. 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 At this point he remains non symptomatic, is not on therapy, and there is no evidence of radiographic progression. Continue monitoring for liver metastases and mesenteric lymph nodes on future CT scans, and every few months, will check serum chromogranin A. It is currently normal as of last check 04/19/2018.
[2018-05-20 14:36] VITALS: BP 139/86; PULSE 62; RESP 18; TEMP 36.8; O2SAT 94
--- NOTE | 2018-05-22 13:58 | ONC.NAV ---
Description: Pre-Authorization for Behavioral Health/Counseling Activity: This [employer] COATING EQUIPMENT TENDER called [facility] and obtained a pre-authorization for counseling: [id number]. Effective 05/22/18-05/22/19.
--- NOTE | 2018-05-28 15:45 | ONC.PN ---
PN -Subjective Interval history: Chief complaint José Miguel Carrillo is a 63-year-old gentleman with castrate resistant non metastatic prostate cancer. Oncological history He has a remote history of metastatic well-differentiated neuroendocrine tumor. He was under care of Dr. Hussein, the surgeon expert in neuroendocrine tumors, at [facility] in [place]. He was treated with hepatic arterial chemoinfusion and chemoembolization with some good response in liver metastases, and was on somatostatin analog therapy for a long time, eventually quited in 2014 as he had stable prolonged non symptomatic disease. He has no current issues with NET. In 2014 while living in [place], his PSA was found to be 48. He came back and underwent a prostate biopsy in 07/2015 at [facility], which was positive for [place] 4+4 adenocarcinoma. There was no evidence of stefany or distant metastases. He started Zoladex in 10/2015, and received a course of definitive radiotherapy from 11/2015 through 01/2016 which was complicated by rectal ulcers and bleeding requiring hyperbaric oxygen therapy. Initially he had major side effects to Zoladex, and stopped after his injection in 04/2016, but resumed Zoladex in combination with Casodex in 03/2017 when PSA meagan to 3.28. He had major side effects from both, and eventually stopped Casodex in 07/2017. Then for few months he felt well even though he maintained Zoladex. Then again recently when PSA meagan to 3.6 on 01/21/2018 (from 0.6 2-3 months prior), Casodex was added again in 12/2017. PSA was 1.34 on 04/19/2018. He indicates that since Casodex was added back in 12/2017, he has not felt very well. He describes periods of feeling very fatigued which brings on depression to the point that he was literally suicidal. He saw Dr. Hope on 04/22/2018, and Dr. Hope permanently discontinued patient's Casodex due to the suicital ideation. Dr. Hope then recommended Apalutamide which she has been taking for about 2 weeks now. Interim events: The patient is a 63-year-old man who is seen today for follow-up of PSA recurrence of prostate cancer. He started taking apalutamide about 10 days ago or so. For the 1st week or so, he had no side effects but over the last 3-4 days has had increasing symptoms. He notes that he has been having anxiety and panic attacks. He has had recurrence of his depressive symptoms. He has noted some diarrhea as well as hot flashes. He has had some increased irritability as well. For now, he finds these side effects tolerable. He does not want to decrease his dose or stop. He does think that he is urinating a bit more easily than previously. He has not noted any new pain. No adenopathy. No shortness of breath or cough. His appetite has been low but stable although he has had some nausea. - Patient Self-Reported Symptoms SR Constitution: Fatigue/Malaise Home Medications and Allergies Home Medications Medication Instructions Recorded Confirmed Type [CANNIBUS OIL] #0 06/01/17 History goserelin [Zoladex] #0 06/27/17 History apalutamide [Erleada] 05/20/18 History Allergies Allergy/AdvReac Type Severity Reaction Status Date / Time oxycodone [From PERCOCET] Allergy Severe coma, Unverified 11/07/17 12:43 epinephrine [EPINEPHRINE] AdvReac Intermediate Unverified 11/07/17 12:43 shellfish derived AdvReac Intermediate Unverified 11/07/17 12:43 [SHELLFISH DERIVED] nuts Allergy Unknown Uncoded 11/07/17 12:43 eggs AdvReac Severe Uncoded 11/07/17 12:43 Exam - Constitutional positive no acute distress, positive average body habitus - Routine HEENT Exam Head: Present: normocephalic, atraumatic ENT: Present: mucous membranes moist, oropharynx clear - Routine Neck Exam Present: supple. Absent: lymphadenopathy, thyromegaly - Routine Respiratory Exam Present: Clear to auscultation bilaterally. Absent: rales, wheezes - Routine Cardiovascular Exam Present: RRR, S1, S2. Absent: murmur - Routine Abdominal Exam Present: soft, normoactive bowel sounds. Absent: tenderness, organomegaly, mass - Routine Extremities Exam Absent: cyanosis, clubbing, edema - Routine Back/Spine Exam Back/Spine: Absent: paraspinal tenderness, vertebral tenderness - Routine Skin Exam Present: intact. Absent: petechiae, rash - Routine Neurological Exam Present: alert, oriented X3 - Routine Psychiatric Exam Present: normal affect, normal thought process Results - Labs Laboratory Last Values WBC 7.1 X10^3/uL (4.5-11.0) 08/23/18 10:13 RBC 4.73 X10^6/uL (4.5-5.9) 03/21/18 10:13 Hgb 13.0 g/dL (13.5-17.5) L 03/21/18 10:13 Hct 38.3 % (41-53) L 03/21/18 10:13 MCV 80.9 fL (80-100) 03/21/18 10:13 MCH 27.4 PG (26-34) 03/21/18 10:13 MCHC 33.8 % (30-36) 03/21/18 10:13 RDW 15.0 % (11.6-14.8) H 03/21/18 10:13 Plt Count 155 X10^3/uL (150-400) 03/21/18 10:13 Neut % (Auto) 67.5 % (50-75) 03/21/18 10:13 Lymph % (Auto) 20.8 % (25-40) L 03/21/18 10:13 [place] % (Auto) 7.5 % (3-14) 03/21/18 10:13 Eos % (Auto) 3.5 % (2-4) 03/21/18 10:13 Baso % (Auto) 0.7 % (0-2) 03/21/18 10:13 Neut # (Auto) 4800 /uL (5378-9556) 03/21/18 10:13 Sodium 140 mmol/L (137-145) 03/21/18 10:13 Potassium 4.2 mmol/L (3.4-5.1) 03/21/18 10:13 Chloride 100 mmol/L (98-107) 03/21/18 10:13 Carbon Dioxide 29 mmol/L (22-32) 03/21/18 10:13 BUN 18 mg/dL (9-20) 03/21/18 10:13 Creatinine 0.70 mg/dL (0.66-1.25) 03/21/18 10:13 Estimated GFR > 60.0 mL/min (>60) 03/21/18 10:13 BUN/Creatinine Ratio 25.7 (6-22) H 03/21/18 10:13 Glucose 111 mg/dL (80-110) H 03/21/18 10:13 Calcium 9.4 mg/dL (8.4-10.2) 03/21/18 10:13 Iron 60 ug/dL (49-181) 03/21/18 10:13 TIBC 342 ug/dL (261-462) 03/21/18 10:13 % Saturation 18 % (20-50) L 03/21/18 10:13 Transferrin 274 mg/dL (206-381) 03/21/18 10:13 Total Bilirubin 0.5 mg/dL (0.2-1.3) 03/21/18 10:13 AST 29 IU/L (17-59) 03/21/18 10:13 ALT 30 IU/L (21-72) 03/21/18 10:13 Alkaline Phosphatase 107 U/L (38-126) 03/21/18 10:13 Total Protein 7.3 g/dL (6.3-8.2) 03/21/18 10:13 Albumin 4.3 g/dL (3.5-5.0) 03/21/18 10:13 Globulin 3.0 g/dL (1.7-4.1) 03/21/18 10:13 Albumin/Globulin Ratio 1.4 (1.0-2.8) 03/21/18 10:13 Prostate Specific Ag 1.270 ng/mL (0.10-4.00) 03/21/18 10:13 Vitamin B12 489 pg/mL (239-931) 03/21/18 10:13 TSH 3.80 uIU/mL (0.47-4.68) 03/21/18 10:13 Testosterone Level 18.4 ng/dL (71.8-623) L 03/21/18 10:13 Assessment and Plan (1) Prostate cancer Non metastatic castrate resistant prostate adenocarcinoma. He just started treatment with Apalutamide on May 17, 2018. Up until today, patient has tolerated the medication extremely well. Especially he denies any fatigue and depression which was associated with Casodex use in the past. I talked with him and his that will monitor closely as far as the possible side effects are concerned. Plan: 1. Continue Goserelin 10.8 mg every 3 months, next due 07/23/2018 2. Continue Apalutamide 240 mg daily 3. RTC in 2 weeks, repeat CBC, CMP and PSA/T. 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 At this point he remains non symptomatic, is not on therapy, and there is no evidence of radiographic progression. Continue monitoring for liver metastases and mesenteric lymph nodes on future CT scans, and every few months, will check serum chromogranin A. It is currently normal as of last check 04/19/2018.
--- NOTE | 2018-05-28 15:50 | P.PNONC_ITS ---
PN -Subjective Interval history: Chief complaint José Miguel Carrillo is a 63-year-old gentleman with castrate resistant non metastatic prostate cancer. Oncological history He has a remote history of metastatic well-differentiated neuroendocrine tumor. He was under care of Dr. Hussein, the surgeon expert in neuroendocrine tumors , at [facility] in [place]. He was treated with hepatic arterial chemoinfusion and chemoembolization with some good response in liver metastases, and was on somatostatin analog therapy for a long time, eventually quited in 2014 as he had stable prolonged non symptomatic disease. He has no current issues with NET. In 2014 while living in [place], his PSA was found to be 48. He came back and underwent a prostate biopsy in 07/2015 at [facility], which was positive for Enio 4+4 adenocarcinoma. There was no evidence of stefany or distant metastases. He started Zoladex in 10/2015, and received a course of definitive radiotherapy from 11/2015 through 01/2016 which was complicated by rectal ulcers and bleeding requiring hyperbaric oxygen therapy. Initially he had major side effects to Zoladex, and stopped after his injection in 04/2016, but resumed Zoladex in combination with Casodex in 03/2017 when PSA meagan to 3.28. He had major side effects from both, and eventually stopped Casodex in 07/2017. Then for few months he felt well even though he maintained Zoladex. Then again recently when PSA meagan to 3.6 on 01/21/2018 (from 0.6 2-3 months prior), Casodex was added again in 12/2017. PSA was 1.34 on 04/19/2018. He indicates that since Casodex was added back in 12/2017, he has not felt very well. He describes periods of feeling very fatigued which brings on depression to the point that he was literally suicidal. He saw Dr. Hope on 04/22/2018, and Dr. Hope permanently discontinued patient's Casodex due to the suicital ideation. Dr. Hope then recommended Apalutamide which she has been taking for about 2 weeks now. Interim events: The patient is a 63-year-old man who is seen today for follow-up of PSA recurrence of prostate cancer. He started taking apalutamide about 10 days ago or so. For the 1st week or so, he had no side effects but over the last 3-4 days has had increasing symptoms. He notes that he has been having anxiety and panic attacks. He has had recurrence of his depressive symptoms. He has noted some diarrhea as well as hot flashes. He has had some increased irritability as well. For now, he finds these side effects tolerable. He does not want to decrease his dose or stop. He does think that he is urinating a bit more easily than previously. He has not noted any new pain. No adenopathy. No shortness of breath or cough. His appetite has been low but stable although he has had some nausea. - Patient Self-Reported Symptoms SR Constitution: Fatigue/Malaise Home Medications and Allergies Home Medications Medication Instructions Recorded Confirmed Type [CANNIBUS OIL] #0 06/01/17 History goserelin [Zoladex] #0 06/27/17 History apalutamide [Erleada] 05/20/18 History Allergies Allergy/AdvReac Type Severity Reaction Status Date / Time oxycodone [From PERCOCET] Allergy Severe coma, Unverified 11/07/17 12:43 epinephrine [EPINEPHRINE] AdvReac Intermediate Unverified 11/07/17 12:43 shellfish derived AdvReac Intermediate Unverified 11/07/17 12:43 [SHELLFISH DERIVED] nuts Allergy Unknown Uncoded 11/07/17 12:43 eggs AdvReac Severe Uncoded 11/07/17 12:43 Exam - Constitutional positive no acute distress, positive average body habitus - Routine HEENT Exam Head: Present: normocephalic, atraumatic ENT: Present: mucous membranes moist, oropharynx clear - Routine Neck Exam Present: supple. Absent: lymphadenopathy, thyromegaly - Routine Respiratory Exam Present: Clear to auscultation bilaterally. Absent: rales, wheezes - Routine Cardiovascular Exam Present: RRR, S1, S2. Absent: murmur - Routine Abdominal Exam Present: soft, normoactive bowel sounds. Absent: tenderness, organomegaly, mass - Routine Extremities Exam Absent: cyanosis, clubbing, edema - Routine Back/Spine Exam Back/Spine: Absent: paraspinal tenderness, vertebral tenderness - Routine Skin Exam Present: intact. Absent: petechiae, rash - Routine Neurological Exam Present: alert, oriented X3 - Routine Psychiatric Exam Present: normal affect, normal thought process Results - Labs Laboratory Last Values WBC 7.1 X10^3/uL (4.5-11.0) 08/23/18 10:13 RBC 4.73 X10^6/uL (4.5-5.9) 03/21/18 10:13 Hgb 13.0 g/dL (13.5-17.5) L 03/21/18 10:13 Hct 38.3 % (41-53) L 03/21/18 10:13 MCV 80.9 fL (80-100) 03/21/18 10:13 MCH 27.4 PG (26-34) 03/21/18 10:13 MCHC 33.8 % (30-36) 03/21/18 10:13 RDW 15.0 % (11.6-14.8) H 03/21/18 10:13 Plt Count 155 X10^3/uL (150-400) 03/21/18 10:13 Neut % (Auto) 67.5 % (50-75) 03/21/18 10:13 Lymph % (Auto) 20.8 % (25-40) L 03/21/18 10:13 [place] % (Auto) 7.5 % (3-14) 03/21/18 10:13 Eos % (Auto) 3.5 % (2-4) 03/21/18 10:13 Baso % (Auto) 0.7 % (0-2) 03/21/18 10:13 Neut # (Auto) 4800 /uL (4333-2759) 03/21/18 10:13 Sodium 140 mmol/L (137-145) 03/21/18 10:13 Potassium 4.2 mmol/L (3.4-5.1) 03/21/18 10:13 Chloride 100 mmol/L (98-107) 03/21/18 10:13 Carbon Dioxide 29 mmol/L (22-32) 03/21/18 10:13 BUN 18 mg/dL (9-20) 03/21/18 10:13 Creatinine 0.70 mg/dL (0.66-1.25) 03/21/18 10:13 Estimated GFR > 60.0 mL/min (>60) 03/21/18 10:13 BUN/Creatinine Ratio 25.7 (6-22) H 03/21/18 10:13 Glucose 111 mg/dL (80-110) H 03/21/18 10:13 Calcium 9.4 mg/dL (8.4-10.2) 03/21/18 10:13 Iron 60 ug/dL (49-181) 03/21/18 10:13 TIBC 342 ug/dL (261-462) 03/21/18 10:13 % Saturation 18 % (20-50) L 03/21/18 10:13 Transferrin 274 mg/dL (206-381) 03/21/18 10:13 Total Bilirubin 0.5 mg/dL (0.2-1.3) 03/21/18 10:13 AST 29 IU/L (17-59) 03/21/18 10:13 ALT 30 IU/L (21-72) 03/21/18 10:13 Alkaline Phosphatase 107 U/L (38-126) 03/21/18 10:13 Total Protein 7.3 g/dL (6.3-8.2) 03/21/18 10:13 Albumin 4.3 g/dL (3.5-5.0) 03/21/18 10:13 Globulin 3.0 g/dL (1.7-4.1) 03/21/18 10:13 Albumin/Globulin Ratio 1.4 (1.0-2.8) 03/21/18 10:13 Prostate Specific Ag 1.270 ng/mL (0.10-4.00) 03/21/18 10:13 Vitamin B12 489 pg/mL (239-931) 03/21/18 10:13 TSH 3.80 uIU/mL (0.47-4.68) 03/21/18 10:13 Testosterone Level 18.4 ng/dL (71.8-623) L 03/21/18 10:13 Assessment and Plan (1) Prostate cancer Non metastatic castrate resistant prostate adenocarcinoma. He just started treatment with Apalutamide on May 17, 2018. Up until today, patient has tolerated the medication extremely well. Especially he denies any fatigue and depression which was associated with Casodex use in the past. I talked with him and his that will monitor closely as far as the possible side effects are concerned. Plan: 1. Continue Goserelin 10.8 mg every 3 months, next due 07/23/2018 2. Continue Apalutamide 240 mg daily 3. RTC in 2 weeks, repeat CBC, CMP and PSA/T. (2) Neuroendocrine carcinoma metastatic to liver This patient has longstanding, 20+ year history of metastatic well- differentiated NET to liver. At this point he remains non symptomatic, is not on therapy, and there is no evidence of radiographic progression. Continue monitoring for liver metastases and mesenteric lymph nodes on future CT scans, and every few months, will check serum chromogranin A. It is currently normal as of last check 04/19/2018.
--- NOTE | 2018-05-30 13:24 | MSW.VISIT ---
BRICK DROPPER Visit note - Data of Consult Primary Care Provider: Kirk Cruz MD - Consult Narrative Reason for consult: Counceling focused on adjustment to disease progression/anxiety/depression. Narrative: José Miguel Carrillo is a 63 year old male seeking counseling to process recent information that he has received indicating that his prostate cancer has progressed to castrate-resistant, and how both he and his are processing this news differently. He shares that he is wanting to learn tools to improve his communication with his , and that he feels they seem to be stuck in patterns/dynamics that perpetuate reactionary interactions between them. Pt was first diagnosed with a metastatic neuroendocrine tumor in his 30's, and has been on medications for this for over 30-years now. Many of the medications had side-effects that include mood swings, hot flashes and labile emotions. This has been very difficult to cope with, for both pt and his for the last 10-years in their marriage. Additional psychosocial factors impacting pt's coping include long-standing financial difficulties, moving to [place] from [place], and feeling very socially isolated. He states that it's just me and her, all day, all the time, in terms of his support network and daily activities. His fatigue was so debilitating on his last prostate cancer medication, that he found it difficult to even complete tasks around the home. Since beginning his new medication, Erleada, pt is feeling more hopeful in terms of returning to a more active lifestyle, less side-effects, and more emotional stability than he experienced with the last medication. Pt has 2-adult sons from his first marriage, however they don't live locally. He shared that he and his went to couple's counseling in the past, however it did not go well. In exploring this further, he states that he felt defensive and angry about the counseling sessions, and looking back, he can see how the last medication that he was on exacerbated his anger, which led to volatile outbursts, and that he certainly has not felt that way at his baseline. His primary goal: To communicate better with less stress to live through this. With this latest news from his oncologist re: disease progression, he feels that he is coping more with his own mortality as a reality than he ever has before, however, his is coping with this news by not wanting to talk about the seriousness of it, and wants to not address his eventual dying or his feelings of grief and loss. He states that he had a few times of suicidal ideation, where he felt that his was probably going to leave me, and thus couldn't imagine his life without her. When he makes statements to her as such, she becomes understandably angry and upset, which starts the cycle of arguing and hurt feelings all over again. One of their strengths, however, in resolving these conflicts, is that they are able to come together the next day and rationally discuss each other's concerns and perspectives. CC: Reji Deleon MD Patient reports pain?: No - Code Status Resuscitation Status: Full Code - Social History alcohol intake: current alcohol intake frequency: a few times a week substance use type: marijuana housing: house household members: spouse service: No current occupational status: retired education level: college - Psychological Status Stressors: Interpersonal, Financial, Psychosocial, Health Depression-related: Depressed mood: Present, Loss of interest: Absent, Fatigue: Present, Concentration/focus: Absent, Insomnia: Absent, Hypersomnia: Absent, Appetite changes: Absent, Feel guilt/worthlesness: Present, Suicidal ideation: Absent, Psychomotor agitation: Absent, Psychomotor retardation: Absent - Mental Status Exam Orientation:: Time, Place and Person Appearance:: Well-groomed Speech:: Normal rate/volume/sanford Movement:: Calm Mood:: Anxious, Fearful Affect:: Normal, Appropriate in interview Thought Process:: Normal Suicide Risk Degree: Low - Assessment/Goals/Plan Assessment: Pt has been coping with a combination of medication-related side-effects, declining health and anxiety/depression intermittently for several years. His symptoms seem to be improving somewhat since his medication was changed, which has led him to explore some of the causes for the high-level of stress and conflictive communication dynamics with his . He presents as being very introspective, thoughtful and motivated to learn new communication and coping skills to apply to himself and within his interactions with his . BRICK DROPPER provided teaching re: some effective communication strategies to begin practicing, including monitoring his tone, non-verbal communication, asking for space to cool off and to begin adding some time into his days where he can focus on exercise, exploring his own interests, and allowing space for both of them to process things differently. Discussed some interventions to help with anxiety, including possibly seeing a well service floorperson to consult about nutrition, anxiety and hot-flashes that he's experiencing. He has noticed that he becomes highly irritable immediately before the onset of a hot-flash, and finds this very frustrating. Discussed how this is similiar to a diabetic coping with high and low blood sugars, and that medically, he can explain to his that he needs the space to recover from these hot flashes, and to not enter into an argument because he's momentarily irritable. Will f/u with providing referrals for pt to explore in the community for naturopathic consultation. Goals: 1. Communicate better with less stress to live through this. 2. Continue to utilize communication suggestions discussed in counseling to apply in his relationship with his spouse. 3. Explore community options for supportive care, such as naturopathic medicine or acupuncture. Pt prefers to not take any more allopathic medications if possible. Plan: F/u in 2-weeks to schedule additional visits after pt has had time to utilize the suggestions discussed thus far. Home Medications: Home Medications Medication Instructions Recorded Confirmed Type [CANNIBUS OIL] #0 06/01/17 History goserelin [Zoladex] #0 06/27/17 History apalutamide [Erleada] 05/20/18 History Allergies/Adverse Reactions: Allergies Allergy/AdvReac Type Severity Reaction Status Date / Time oxycodone [From PERCOCET] Allergy Severe coma, Unverified 11/07/17 12:43 epinephrine [EPINEPHRINE] AdvReac Intermediate Unverified 11/07/17 12:43 shellfish derived AdvReac Intermediate Unverified 11/07/17 12:43 [SHELLFISH DERIVED] nuts Allergy Unknown Uncoded 11/07/17 12:43 eggs AdvReac Severe Uncoded 11/07/17 12:43 - Problem List Patient Problems: Current Active Problems Neuroendocrine carcinoma metastatic to liver (Chronic) Adjustment disorder with mixed anxiety and depressed mood (Acute)
[2018-06-06 13:17] LABS: Add Manual Diff / Slide Review NO; Basophils Percent Auto 0.5 % (0-2); Eosinophils Percent Auto 2.3 % (2-4); Hematocrit 39.9 % (41-53); Hemoglobin 13.5 g/dL (13.5-17.5); Lymphocytes Percent Auto 22.3 % (25-40); Mean Corpuscular HGB Conc 33.9 % (30-36); Mean Corpuscular Hemoglobin 27.9 PG (26-34); Mean Corpuscular Volume 82.3 fL (80-100); Monocytes Percent Auto 7.1 % (3-14); Neutrophils Absolute Auto 4500 /uL (3000-5900); Neutrophils Percent Auto 67.8 % (50-75); Platelet Count 171 X10^3/uL (150-400); Red Blood Cell Count 4.85 X10^6/uL (4.5-5.9); Red Cell Distribution Width 14.6 % (11.6-14.8); White Blood Cell Count 6.6 X10^3/uL (4.5-11.0)
[2018-06-06 14:10] LABS: Alanine Aminotransferase 31 IU/L (21-72); Albumin 4.4 g/dL (3.5-5.0); Albumin Globulin Ratio 1.3 (1.0-2.8); Alkaline Phosphatase 130 U/L (38-126); Aspartate Aminotransferase 32 IU/L (17-59); BUN Creatinine Ratio 21.1 (6-22); Bilirubin Total 0.3 mg/dL (0.2-1.3); Blood Urea Nitrogen 19 mg/dL (9-20); Calcium 9.5 mg/dL (8.4-10.2); Carbon Dioxide 31 mmol/L (22-32); Chloride 103 mmol/L (98-107); Estimated Glomerular Filt Rate > 60.0 mL/min (>60); Globulin 3.4 g/dL (1.7-4.1); Glucose 106 mg/dL (80-110); HEMOLYSIS < 15 (0-50); Potassium 4.4 mmol/L (3.4-5.1); Sodium 144 mmol/L (137-145); Total Protein 7.8 g/dL (6.3-8.2)
[2018-06-06 14:42] LABS: Prostate Specific Antigen 0.472 ng/mL (0.10-4.00)
[2018-06-06 14:45] LABS: Testosterone 26.9 ng/dL (71.8-623)
--- NOTE | 2018-06-11 14:56 | P.PNONC_ITS ---
PN -Subjective Interval history: Chief complaint José Miguel Carrillo is a 63-year-old gentleman with castrate resistant non metastatic prostate cancer. Oncological history He has a remote history of metastatic well-differentiated neuroendocrine tumor. He was under care of Dr. Hussein, the surgeon expert in neuroendocrine tumors , at [facility] in [place]. He was treated with hepatic arterial chemoinfusion and chemoembolization with some good response in liver metastases, and was on somatostatin analog therapy for a long time, eventually quited in 2014 as he had stable prolonged non symptomatic disease. He has no current issues with NET. In 2014 while living in [place], his PSA was found to be 48. He came back and underwent a prostate biopsy in 07/2015 at [facility], which was positive for Enio 4+4 adenocarcinoma. There was no evidence of stefany or distant metastases. He started Zoladex in 10/2015, and received a course of definitive radiotherapy from 11/2015 through 01/2016 which was complicated by rectal ulcers and bleeding requiring hyperbaric oxygen therapy. Initially he had major side effects to Zoladex, and stopped after his injection in 04/2016, but resumed Zoladex in combination with Casodex in 03/2017 when PSA meagan to 3.28. He had major side effects from both, and eventually stopped Casodex in 07/2017. Then for few months he felt well even though he maintained Zoladex. Then again recently when PSA meagan to 3.6 on 01/21/2018 (from 0.6 2-3 months prior), Casodex was added again in 12/2017. PSA was 1.34 on 04/19/2018. He indicates that since Casodex was added back in 12/2017, he has not felt very well. He describes periods of feeling very fatigued which brings on depression to the point that he was literally suicidal. He saw Dr. Hope on 04/22/2018, and Dr. Hope permanently discontinued patient's Casodex due to the suicital ideation. Dr. Hope then recommended Apalutamide which he has been taking for about March 2018. Interim events: The patient is a 63-year-old man who is seen today for follow-up of PSA recurrence of prostate cancer. He started taking apalutamide about a little bit more than a month now. He notes that he did have some side effects including fatigue that lasted for about 10 days or so and have since improved. He does have some hot flashes. He finds the manageable. His mood has been good. Strength and energy level have been improving. He denies any new aches or pains. He reports that he is urinating without any difficulty. He has not noted any adenopathy. Appetite has been good. No nausea or vomiting. He has had a little bit of diarrhea but it is not been severe. Overall, he feels better now than he has for a long time. - Patient Self-Reported Symptoms SR Constitution: Fatigue/Malaise Home Medications and Allergies Home Medications Medication Instructions Recorded Confirmed Type [CANNIBUS OIL] #0 06/01/17 History goserelin [Zoladex] #0 06/27/17 History apalutamide [Erleada] 05/20/18 History Allergies Allergy/AdvReac Type Severity Reaction Status Date / Time oxycodone [From PERCOCET] Allergy Severe coma, Unverified 11/07/17 12:43 epinephrine [EPINEPHRINE] AdvReac Intermediate Unverified 11/07/17 12:43 shellfish derived AdvReac Intermediate Unverified 11/07/17 12:43 [SHELLFISH DERIVED] nuts Allergy Unknown Uncoded 11/07/17 12:43 eggs AdvReac Severe Uncoded 11/07/17 12:43 Exam - Constitutional positive no acute distress, positive average body habitus - Routine HEENT Exam Head: Present: normocephalic, atraumatic Eye: Present: EOMI, PERRL. Absent: conjunctival icterus, scleral injection ENT: Present: mucous membranes moist, oropharynx clear - Routine Neck Exam Present: supple. Absent: lymphadenopathy, thyromegaly - Routine Chest/Breast/Axilla Exam Chest wall exam standard: Absent: tenderness - Routine Respiratory Exam Present: Clear to auscultation bilaterally. Absent: rales, wheezes - Routine Cardiovascular Exam Present: RRR, S1, S2. Absent: murmur - Routine Abdominal Exam Present: soft, normoactive bowel sounds. Absent: tenderness, organomegaly, mass - Routine Extremities Exam Absent: cyanosis, clubbing, edema - Routine Back/Spine Exam Back/Spine: Absent: paraspinal tenderness, vertebral tenderness - Routine Skin Exam Present: intact. Absent: petechiae, rash - Routine Neurological Exam Present: alert, oriented X3 - Routine Psychiatric Exam Present: normal affect, normal thought process Results - Labs Laboratory Last Values WBC 6.6 X10^3/uL (4.5-11.0) 06/06/18 13:05 RBC 4.85 X10^6/uL (4.5-5.9) 06/06/18 13:05 Hgb 13.5 g/dL (13.5-17.5) 06/06/18 13:05 Hct 39.9 % (41-53) L 06/06/18 13:05 MCV 82.3 fL (80-100) 06/06/18 13:05 MCH 27.9 PG (26-34) 06/06/18 13:05 MCHC 33.9 % (30-36) 06/06/18 13:05 RDW 14.6 % (11.6-14.8) 06/06/18 13:05 Plt Count 171 X10^3/uL (150-400) 06/06/18 13:05 Neut % (Auto) 67.8 % (50-75) 06/06/18 13:05 Lymph % (Auto) 22.3 % (25-40) L 06/06/18 13:05 [place] % (Auto) 7.1 % (3-14) 06/06/18 13:05 Eos % (Auto) 2.3 % (2-4) 06/06/18 13:05 Baso % (Auto) 0.5 % (0-2) 06/06/18 13:05 Neut # (Auto) 4500 /uL (9460-9479) 06/06/18 13:05 Sodium 144 mmol/L (137-145) 06/06/18 13:05 Potassium 4.4 mmol/L (3.4-5.1) 06/06/18 13:05 Chloride 103 mmol/L (98-107) 06/06/18 13:05 Carbon Dioxide 31 mmol/L (22-32) 06/06/18 13:05 BUN 19 mg/dL (9-20) 06/06/18 13:05 Creatinine 0.90 mg/dL (0.66-1.25) 06/06/18 13:05 Estimated GFR > 60.0 mL/min (>60) 06/06/18 13:05 BUN/Creatinine Ratio 21.1 (6-22) 06/06/18 13:05 Glucose 106 mg/dL (80-110) 06/06/18 13:05 Calcium 9.5 mg/dL (8.4-10.2) 06/06/18 13:05 Iron 60 ug/dL (49-181) 03/21/18 10:13 TIBC 342 ug/dL (261-462) 03/21/18 10:13 % Saturation 18 % (20-50) L 03/21/18 10:13 Transferrin 274 mg/dL (206-381) 03/21/18 10:13 Total Bilirubin 0.3 mg/dL (0.2-1.3) 06/06/18 13:05 AST 32 IU/L (17-59) 06/06/18 13:05 ALT 31 IU/L (21-72) 06/06/18 13:05 Alkaline Phosphatase 130 U/L (38-126) H 06/06/18 13:05 Total Protein 7.8 g/dL (6.3-8.2) 06/06/18 13:05 Albumin 4.4 g/dL (3.5-5.0) 06/06/18 13:05 Globulin 3.4 g/dL (1.7-4.1) 06/06/18 13:05 Albumin/Globulin Ratio 1.3 (1.0-2.8) 06/06/18 13:05 Prostate Specific Ag 0.472 ng/mL (0.10-4.00) D 06/06/18 13:05 Vitamin B12 489 pg/mL (239-931) 03/21/18 10:13 TSH 3.80 uIU/mL (0.47-4.68) 03/21/18 10:13 Testosterone Level 26.9 ng/dL (71.8-623) L 06/06/18 13:05 Assessment and Plan (1) Prostate cancer Non metastatic castrate resistant prostate adenocarcinoma. He just started treatment with Apalutamide on May 17, 2018. Up until today, patient has tolerated the medication extremely well. Especially he denies any fatigue and depression which was associated with Casodex use in the past. I talked with him and his that will monitor closely as far as the possible side effects are concerned. Plan: 1. Continue Goserelin 10.8 mg every 3 months, next due 07/23/2018 2. Continue Apalutamide 240 mg daily 3. RTC in 2 weeks, repeat CBC, CMP and PSA/T. (2) Neuroendocrine carcinoma metastatic to liver This patient has longstanding, 20+ year history of metastatic well- differentiated NET to liver. At this point he remains non symptomatic, is not on therapy, and there is no evidence of radiographic progression. Continue monitoring for liver metastases and mesenteric lymph nodes on future CT scans, and every few months, will check serum chromogranin A. It is currently normal as of last check 04/19/2018.
[2018-06-11 15:13] VITALS: BP 154/104; PULSE 71; RESP 19; TEMP 37.1; O2SAT 93
[2018-07-19 13:31] LABS: Alanine Aminotransferase 20 IU/L (21-72); Albumin 4.5 g/dL (3.5-5.0); Albumin Globulin Ratio 1.3 (1.0-2.8); Alkaline Phosphatase 109 U/L (38-126); Aspartate Aminotransferase 26 IU/L (17-59); BUN Creatinine Ratio 28.8 (6-22); Bilirubin Total 0.2 mg/dL (0.2-1.3); Blood Urea Nitrogen 23 mg/dL (9-20); Calcium 9.8 mg/dL (8.4-10.2); Carbon Dioxide 30 mmol/L (22-32); Chloride 103 mmol/L (98-107); Estimated Glomerular Filt Rate > 60.0 mL/min (>60); Globulin 3.4 g/dL (1.7-4.1); Glucose 79 mg/dL (80-110); HEMOLYSIS < 15 (0-50); Potassium 4.3 mmol/L (3.4-5.1); Sodium 144 mmol/L (137-145); Total Protein 7.9 g/dL (6.3-8.2)
[2018-07-19 13:57] LABS: Add Manual Diff / Slide Review NO; Basophils Percent Auto 0.4 % (0-2); Eosinophils Percent Auto 3.9 % (2-4); Hematocrit 41.3 % (41-53); Hemoglobin 13.8 g/dL (13.5-17.5); Mean Corpuscular HGB Conc 33.4 % (30-36); Mean Corpuscular Hemoglobin 27.6 PG (26-34); Mean Corpuscular Volume 82.7 fL (80-100); Monocytes Percent Auto 10.9 % (3-14); Neutrophils Absolute Auto 5200 /uL (1500-7000); Neutrophils Percent Auto 62.8 % (50-75); Platelet Count 222 X10^3/uL (150-400); Red Cell Distribution Width 14.9 % (11.6-14.8); White Blood Cell Count 8.2 X10^3/uL (4.5-11.0)
[2018-07-19 14:02] LABS: Prostate Specific Antigen 0.154 ng/mL (0.10-4.00)
--- NOTE | 2018-07-25 08:38 | P.PNONC_ITS ---
PN -Subjective Interval history: Chief complaint José Miguel Carrillo is a 63-year-old gentleman with castrate resistant non metastatic prostate cancer. Oncological history He has a remote history of metastatic well-differentiated neuroendocrine tumor. He was under care of Dr. Hussein, the surgeon expert in neuroendocrine tumors , at [facility] in [place]. He was treated with hepatic arterial chemoinfusion and chemoembolization with some good response in liver metastases, and was on somatostatin analog therapy for a long time, eventually quited in 2014 as he had stable prolonged non symptomatic disease. He has no current issues with NET. In 2014 while living in [place], his PSA was found to be 48. He came back and underwent a prostate biopsy in 07/2015 at [facility], which was positive for [place] 4+4 adenocarcinoma. There was no evidence of stefany or distant metastases. He started Zoladex in 10/2015, and received a course of definitive radiotherapy from 11/2015 through 01/2016 which was complicated by rectal ulcers and bleeding requiring hyperbaric oxygen therapy. Initially he had major side effects to Zoladex, and stopped after his injection in 04/2016, but resumed Zoladex in combination with Casodex in 03/2017 when PSA meagan to 3.28. He had major side effects from both, and eventually stopped Casodex in 07/2017. Then for few months he felt well even though he maintained Zoladex. Then again recently when PSA meagan to 3.6 on 01/21/2018 (from 0.6 2-3 months prior), Casodex was added again in 12/2017. PSA was 1.34 on 04/19/2018. He indicates that since Casodex was added back in 12/2017, he has not felt very well. He describes periods of feeling very fatigued which brings on depression to the point that he was literally suicidal. He saw Dr. Hope on 04/22/2018, and Dr. Hope permanently discontinued patient's Casodex due to the suicital ideation. Dr. Hope then recommended Apalutamide which he has been taking for about March 2018. Interim events: The patient is a 63-year-old man who is seen today for follow-up of PSA recurrence of prostate cancer. He started taking apalutamide about a little bit more than 2 months ago. In that regards he states he is great, I know my PSA is down. He notes that he did have some side effects including fatigue that lasted for about 10 days or so and have since improved. He does have some hot flashes. He finds the manageable. Appetite has been good. NO new pain, no new lumps or bumps. No issues with bladder or bowel. However during the interim specifically early June patient presented to [facility] x2 with elevated blood pressure. He was admitted with a hypertensive urgency. I have requested these records they are not yet available in this clinic. Patient goes on to say he ?had a full heart evaluation I was told everything was ok. Patient had been diagnosed with hypertension years ago he was on medication however he stopped these abruptly about a year ago stating they were making him feel ?bad?. After stopping blood pressure medications patient states he felt ?great?. Since hospitalization he is back on blood pressure medications specifically hydralazine and amlodipine with nitro an Ativan as needed. Also propanolol as needed. Patient states all of these medications make him feel ?terrible?. It is noted patient is sensitive to most medications. He was taking valsartan initially while hospitalized however this was DC'd due to psychotic break per pt report. He states at home his blood pressure is generally about 180 systolic. Today at time of visit it is 160 over 91 which the patient states is ?the lowest it has been?. He goes on to report feeling dizzy, tired, weak. He was taking valsartan to which he reported a psychotic break. This was subsequently discontinued. Patient has an appointment August 16 with at [facility]. - Patient Self-Reported Symptoms SR Constitution: Fatigue/Malaise SR Gastrointestinal issues: Change in bowel pattern, Diarrhea SR Neuro issues: Headache SR Endocrine issues: Hot flashes Home Medications and Allergies Home Medications Medication Instructions Recorded Confirmed Type [CANNIBUS OIL] #0 06/01/17 History goserelin [Zoladex] #0 06/27/17 History apalutamide [Erleada] 05/20/18 History hydralazine 50 mg PO TID 07/25/18 07/25/18 History propranolol 20 mg PO TID 07/25/18 07/25/18 History Allergies Allergy/AdvReac Type Severity Reaction Status Date / Time oxycodone [From PERCOCET] Allergy Severe coma, Verified 06/11/18 15:16 epinephrine [EPINEPHRINE] AdvReac Intermediate Verified 06/11/18 15:16 shellfish derived AdvReac Intermediate Verified 06/11/18 15:16 [SHELLFISH DERIVED] nuts Allergy Unknown Uncoded 11/07/17 12:43 eggs AdvReac Severe unknown Uncoded 06/11/18 15:16 Exam - Constitutional positive no acute distress - Routine HEENT Exam ENT: Present: mucous membranes moist, oropharynx clear - Routine Neck Exam Present: supple. Absent: lymphadenopathy - Routine Respiratory Exam Present: Clear to auscultation bilaterally. Absent: rales, rhonchi, wheezes - Routine Cardiovascular Exam Present: RRR, S1, S2. Absent: murmur, gallop, rubs, JVD - Routine Abdominal Exam Present: soft, normoactive bowel sounds. Absent: tenderness, distended, organomegaly - Routine Extremities Exam Absent: edema, calf tenderness - Routine Skin Exam Present: intact, normal turgor. Absent: petechiae, rash - Routine Neurological Exam Present: alert, oriented X3, CN II-XII intact - Routine Psychiatric Exam Present: normal affect Results - Labs Laboratory Last Values WBC 8.2 X10^3/uL (4.5-11.0) 07/19/18 12:47 RBC 5.00 X10^6/uL (4.5-5.9) 07/19/18 12:47 Hgb 13.8 g/dL (13.5-17.5) 07/19/18 12:47 Hct 41.3 % (41-53) 07/19/18 12:47 MCV 82.7 fL (80-100) 07/19/18 12:47 MCH 27.6 PG (26-34) 07/19/18 12:47 MCHC 33.4 % (30-36) 07/19/18 12:47 RDW 14.9 % (11.6-14.8) H 07/19/18 12:47 Plt Count 222 X10^3/uL (150-400) 07/19/18 12:47 Neut % (Auto) 62.8 % (50-75) 07/19/18 12:47 Lymph % (Auto) 22.0 % (25-40) L 07/19/18 12:47 [place] % (Auto) 10.9 % (3-14) 07/19/18 12:47 Eos % (Auto) 3.9 % (2-4) 07/19/18 12:47 Baso % (Auto) 0.4 % (0-2) 07/19/18 12:47 Neut # (Auto) 5200 /uL (4702-5626) 07/19/18 12:47 Sodium 144 mmol/L (137-145) 07/19/18 12:47 Potassium 4.3 mmol/L (3.4-5.1) 07/19/18 12:47 Chloride 103 mmol/L (98-107) 07/19/18 12:47 Carbon Dioxide 30 mmol/L (22-32) 07/19/18 12:47 BUN 23 mg/dL (9-20) H 07/19/18 12:47 Creatinine 0.80 mg/dL (0.66-1.25) 07/19/18 12:47 Estimated GFR > 60.0 mL/min (>60) 07/19/18 12:47 BUN/Creatinine Ratio 28.8 (6-22) H 07/19/18 12:47 Glucose 79 mg/dL (80-110) L 07/19/18 12:47 Calcium 9.8 mg/dL (8.4-10.2) 07/19/18 12:47 Iron 60 ug/dL (49-181) 03/21/18 10:13 TIBC 342 ug/dL (261-462) 03/21/18 10:13 % Saturation 18 % (20-50) L 03/21/18 10:13 Transferrin 274 mg/dL (206-381) 03/21/18 10:13 Total Bilirubin 0.2 mg/dL (0.2-1.3) 07/19/18 12:47 AST 26 IU/L (17-59) 07/19/18 12:47 ALT 20 IU/L (21-72) L 07/19/18 12:47 Alkaline Phosphatase 109 U/L (38-126) 07/19/18 12:47 Total Protein 7.9 g/dL (6.3-8.2) 07/19/18 12:47 Albumin 4.5 g/dL (3.5-5.0) 07/19/18 12:47 Globulin 3.4 g/dL (1.7-4.1) 07/19/18 12:47 Albumin/Globulin Ratio 1.3 (1.0-2.8) 07/19/18 12:47 Prostate Specific Ag 0.154 ng/mL (0.10-4.00) 07/19/18 12:47 Vitamin B12 489 pg/mL (239-931) 03/21/18 10:13 TSH 3.80 uIU/mL (0.47-4.68) 03/21/18 10:13 Testosterone Level 26.9 ng/dL (71.8-623) L 06/06/18 13:05 Assessment and Plan (1) Prostate cancer Non metastatic castrate resistant prostate adenocarcinoma. treatment with Apalutamide initiated on May 17, 2018. Up until today, patient has tolerated the medication extremely well. Especially he denies any fatigue and depression which was associated with Casodex use in the past. I talked with him and his that will monitor closely as far as the possible side effects are concerned. Plan: 1. Continue Goserelin 10.8 mg every 3 months, next due 10/21/2018 2. Continue Apalutamide 240 mg daily 3. RTC in 2 weeks, repeat CBC, CMP and PSA/T. (2) Neuroendocrine carcinoma metastatic to liver This patient has longstanding, 20+ year history of metastatic well- differentiated NET to liver. At this point he remains non symptomatic, is not on therapy, and there is no evidence of radiographic progression. Continue monitoring for liver metastases and mesenteric lymph nodes on future CT scans, and every few months, will check serum chromogranin A. It is currently normal as of last check 04/19/2018. (3) Hypertension Current visit: Yes Status: Acute Hypertension with hypertensive urgency requiring hospital admission earlier this month. I have requested notes from his hospital stay. Patient has a history of hypertension he was taking blood pressure medications however about a year ago patient stopped his medications altogether reporting they were making him tired and depressed. Since hospitalization patient is now taking hydralazine and amlodipine. Also propanolol, nitroglycerin, Ativan on an as- needed basis. Patient's blood pressure today in the clinic is 160/91 patient states this is the lowest it has been since discharge from the hospital. He states at home systolic blood pressure is running 180. He has an appointment with his new primary care provider at the scheduled regional clinic Dr. Tim 08/16/2018. I have called and requested a sooner appointment, patient now has an appointment tomorrow July 26 at scheduled regional clinics. It is noted patient does have a remote history of neuroendocrine tumor I do not think this is contributing.
[2018-07-25 12:55] VITALS: BP 160/91; PULSE 78; RESP 18; TEMP 36.6; O2SAT 94
[2018-07-25] MEDS: [UNRECOGNIZED DRUG - OTHER] SUBCUT (14:12)
[2018-08-09 14:23] LABS: Add Manual Diff / Slide Review NO; Basophils Percent Auto 0.6 % (0-2); Eosinophils Percent Auto 2.3 % (2-4); Hematocrit 37.8 % (41-53); Hemoglobin 12.7 g/dL (13.5-17.5); Lymphocytes Percent Auto 20.3 % (25-40); Mean Corpuscular HGB Conc 33.6 % (30-36); Mean Corpuscular Hemoglobin 27.7 PG (26-34); Mean Corpuscular Volume 82.4 fL (80-100); Monocytes Percent Auto 8.1 % (3-14); Neutrophils Absolute Auto 4800 /uL (1500-7000); Neutrophils Percent Auto 68.7 % (50-75); Platelet Count 164 X10^3/uL (150-400); Red Blood Cell Count 4.58 X10^6/uL (4.5-5.9); Red Cell Distribution Width 14.9 % (11.6-14.8)
[2018-08-09 14:35] LABS: Alanine Aminotransferase 26 IU/L (21-72); Albumin 4.3 g/dL (3.5-5.0); Albumin Globulin Ratio 1.3 (1.0-2.8); Alkaline Phosphatase 99 U/L (38-126); Aspartate Aminotransferase 22 IU/L (17-59); Bilirubin Total 0.2 mg/dL (0.2-1.3); Blood Urea Nitrogen 20 mg/dL (9-20); Calcium 9.6 mg/dL (8.4-10.2); Carbon Dioxide 29 mmol/L (22-32); Chloride 102 mmol/L (98-107); Estimated Glomerular Filt Rate > 60.0 mL/min (>60); Globulin 3.4 g/dL (1.7-4.1); Glucose 94 mg/dL (80-110); HEMOLYSIS < 15 (0-50); Potassium 4.6 mmol/L (3.4-5.1); Sodium 140 mmol/L (137-145); Total Protein 7.7 g/dL (6.3-8.2)
[2018-08-09 15:06] LABS: Prostate Specific Antigen 0.152 ng/mL (0.10-4.00)
[2018-08-09 15:09] LABS: Testosterone 21.9 ng/dL (71.8-623)
--- NOTE | 2018-08-09 16:22 | PC.NURSE ---
labs stable, psa 0.1, testosterone 21.9 L provider visit 08/14
[2018-08-14 15:25] VITALS: BP 143/94; PULSE 67; RESP 18; TEMP 36.8; O2SAT 96
--- NOTE | 2018-08-14 15:46 | ONC.PN ---
PN -Subjective Interval history: Chief complaint José Miguel Carrillo is a 63-year-old gentleman with castrate resistant non metastatic prostate cancer. Oncological history He has a remote history of metastatic well-differentiated neuroendocrine tumor. He was under care of Dr. Hussein, the surgeon expert in neuroendocrine tumors, at [facility] in [place]. He was treated with hepatic arterial chemoinfusion and chemoembolization with some good response in liver metastases, and was on somatostatin analog therapy for a long time, eventually quited in 2014 as he had stable prolonged non symptomatic disease. He has no current issues with NET. In 2014 while living in [place], his PSA was found to be 48. He came back and underwent a prostate biopsy in 07/2015 at [facility], which was positive for [place] 4+4 adenocarcinoma. There was no evidence of stefany or distant metastases. He started Zoladex in 10/2015, and received a course of definitive radiotherapy from 11/2015 through 01/2016 which was complicated by rectal ulcers and bleeding requiring hyperbaric oxygen therapy. Initially he had major side effects to Zoladex, and stopped after his injection in 04/2016, but resumed Zoladex in combination with Casodex in 03/2017 when PSA meagan to 3.28. He had major side effects from both, and eventually stopped Casodex in 07/2017. Then for few months he felt well even though he maintained Zoladex. Then again recently when PSA meagan to 3.6 on 01/21/2018 (from 0.6 2-3 months prior), Casodex was added again in 12/2017. PSA was 1.34 on 04/19/2018. He indicates that since Casodex was added back in 12/2017, he has not felt very well. He describes periods of feeling very fatigued which brings on depression to the point that he was literally suicidal. He saw Dr. Hope on 04/22/2018, and Dr. Hope permanently discontinued patient's Casodex due to the suicital ideation. Dr. Hope then recommended Apalutamide which he has been taking for about March 2018. Interim events: The patient is a 63-year-old man who is seen today for follow-up of PSA recurrence of prostate cancer. Since his last visit here, he developed an episode of chest pain while shopping at [employer]. He went to an urgent care and was found to have a markedly elevated blood pressure and was hospitalized. He underwent a cardiac evaluation with no evidence of coronary disease found. He was treated with several different medications including hydralazine. He is currently on amlodipine and lisinopril and reports that his blood pressure is better controlled with those. He has not had any further episodes of chest pain. He does have some ongoing fatigue. He has been taking some naps in the afternoon. He notes hot flashes which have been stable. His appetite has been fair. He has not been losing any weight. No nausea or vomiting. He does have some urinary frequency. He is happy that his PSA has been down. He denies any other changes in his health. - Patient Self-Reported Symptoms SR Constitution: Fatigue/Malaise SR Gastrointestinal issues: Change in bowel pattern, Diarrhea SR Neuro issues: Headache SR Endocrine issues: Hot flashes Home Medications and Allergies Home Medications Medication Instructions Recorded Confirmed Type [CANNIBUS OIL] #0 06/01/17 History goserelin [Zoladex] #0 06/27/17 History apalutamide [Erleada] 05/20/18 History lorazepam [Ativan] 0.5 mg PO QD-BID PRN 07/25/18 07/25/18 History nitroglycerin 0.4 mg SUBLINGUAL Q5-15M PRN 07/25/18 07/25/18 History amlodipine 10 mg PO DAILY 08/14/18 08/14/18 History lisinopril 10 mg PO DAILY 08/14/18 08/14/18 History Allergies Allergy/AdvReac Type Severity Reaction Status Date / Time oxycodone [From PERCOCET] Allergy Severe coma, Verified 06/11/18 15:16 epinephrine [EPINEPHRINE] AdvReac Intermediate Verified 06/11/18 15:16 shellfish derived AdvReac Intermediate Verified 06/11/18 15:16 [SHELLFISH DERIVED] nuts Allergy Unknown Uncoded 11/07/17 12:43 eggs AdvReac Severe unknown Uncoded 06/11/18 15:16 Exam - Constitutional positive no acute distress, positive obese - Routine HEENT Exam Head: Present: normocephalic, atraumatic Eye: Present: EOMI, PERRL. Absent: conjunctival icterus, scleral injection ENT: Present: mucous membranes moist, oropharynx clear - Routine Neck Exam Present: supple. Absent: lymphadenopathy, thyromegaly - Routine Respiratory Exam Present: Clear to auscultation bilaterally. Absent: rales, wheezes - Routine Cardiovascular Exam Present: RRR, S1, S2. Absent: murmur - Routine Abdominal Exam Present: soft, normoactive bowel sounds. Absent: tenderness, organomegaly, mass - Routine Extremities Exam Absent: cyanosis, clubbing, edema - Routine Back/Spine Exam Back/Spine: Absent: paraspinal tenderness, vertebral tenderness - Routine Skin Exam Present: intact. Absent: petechiae, rash - Routine Neurological Exam Present: alert, oriented X3 - Routine Psychiatric Exam Present: normal affect, normal thought process Results - Labs Laboratory Last Values WBC 7.0 X10^3/uL (4.5-11.0) 08/09/18 14:14 RBC 4.58 X10^6/uL (4.5-5.9) 08/09/18 14:14 Hgb 12.7 g/dL (13.5-17.5) L 08/09/18 14:14 Hct 37.8 % (41-53) L 08/09/18 14:14 MCV 82.4 fL (80-100) 08/09/18 14:14 MCH 27.7 PG (26-34) 08/09/18 14:14 MCHC 33.6 % (30-36) 08/09/18 14:14 RDW 14.9 % (11.6-14.8) H 08/09/18 14:14 Plt Count 164 X10^3/uL (150-400) 08/09/18 14:14 Neut % (Auto) 68.7 % (50-75) 08/09/18 14:14 Lymph % (Auto) 20.3 % (25-40) L 08/09/18 14:14 [place] % (Auto) 8.1 % (3-14) 08/09/18 14:14 Eos % (Auto) 2.3 % (2-4) 08/09/18 14:14 Baso % (Auto) 0.6 % (0-2) 08/09/18 14:14 Neut # (Auto) 4800 /uL (3128-2739) 08/09/18 14:14 Sodium 140 mmol/L (137-145) 08/09/18 14:14 Potassium 4.6 mmol/L (3.4-5.1) 08/09/18 14:14 Chloride 102 mmol/L (98-107) 08/09/18 14:14 Carbon Dioxide 29 mmol/L (22-32) 08/09/18 14:14 BUN 20 mg/dL (9-20) 08/09/18 14:14 Creatinine 0.80 mg/dL (0.66-1.25) 08/09/18 14:14 Estimated GFR > 60.0 mL/min (>60) 08/09/18 14:14 BUN/Creatinine Ratio 25.0 (6-22) H 08/09/18 14:14 Glucose 94 mg/dL (80-110) 08/09/18 14:14 Calcium 9.6 mg/dL (8.4-10.2) 08/09/18 14:14 Iron 60 ug/dL (49-181) 03/21/18 10:13 TIBC 342 ug/dL (261-462) 03/21/18 10:13 % Saturation 18 % (20-50) L 03/21/18 10:13 Transferrin 274 mg/dL (206-381) 03/21/18 10:13 Total Bilirubin 0.2 mg/dL (0.2-1.3) 08/09/18 14:14 AST 22 IU/L (17-59) 08/09/18 14:14 ALT 26 IU/L (21-72) 08/09/18 14:14 Alkaline Phosphatase 99 U/L (38-126) 08/09/18 14:14 Total Protein 7.7 g/dL (6.3-8.2) 08/09/18 14:14 Albumin 4.3 g/dL (3.5-5.0) 08/09/18 14:14 Globulin 3.4 g/dL (1.7-4.1) 08/09/18 14:14 Albumin/Globulin Ratio 1.3 (1.0-2.8) 08/09/18 14:14 Prostate Specific Ag 0.152 ng/mL (0.10-4.00) 08/09/18 14:14 Vitamin B12 489 pg/mL (239-931) 03/21/18 10:13 TSH 3.80 uIU/mL (0.47-4.68) 03/21/18 10:13 Testosterone Level 21.9 ng/dL (71.8-623) L 08/09/18 14:14 Assessment and Plan (1) Prostate cancer Non metastatic castrate resistant prostate adenocarcinoma. treatment with Apalutamide initiated on May 17, 2018. His PSA has continued to decline. It is down to 0.15. He is tolerating the medication adequately. It is possible it is contributing to his fatigue into his hypertension. However as long as these are manageable with medications I think it is in his interest to continue. He will be due for another Zoladex injection in about 2 months. He will return to clinic then. 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 At this point he remains non symptomatic, is not on therapy, and there is no evidence of radiographic progression. Continue monitoring for liver metastases and mesenteric lymph nodes on future CT scans, and every few months, will check serum chromogranin A. It is currently normal as of last check 04/19/2018.
--- NOTE | 2018-10-08 15:04 | ONC.NAV ---
Description: T/C re: patient's request for an emotional support animal letter for his dog. Activity: This [employer] consulted with [facility] Malou Wong, re: how to proceed, as well as best practice standards for Oncology Social Workers according to the Association of Oncology Social Workers concerning this topic. H[employer]ICULTURAL [employer] then called pt's , Kristy, and explained that we are unable to provide a letter naming pt's personal dog as an official emotional support animal, which pt wants in order to take his dog everywhere with him. H[employer]ICULT[employer] explained that we follow our hospital policy recognizing trained service dogs, as recognized by both [place] State Law and the ADA, and emotional support animals do not fall under that criteria, thus we won't be able to provide this letter as requested. His reasons are for anxiety. H[employer]ICULTURAL SPECIALTY [employer] encouraged pt to explore alternative options, such as accupuncture and discussing his anxiety with his oncologist provider. He states that his anxiety has worsened since beginning the Erleada a few months ago. H[employer] offered support and encouragement, and suggested that they also discuss this request with their primary care doctor. She expressed understanding. No further needs indicated at this time.
[2018-10-16 15:13] VITALS: BP 162/96; PULSE 70; RESP 16; TEMP 37.3; O2SAT 93
--- NOTE | 2018-10-16 15:36 | P.PNONC_ITS ---
PN -Subjective Interval history: Diagnosis: castrate resistant non metastatic prostate cancer. He also has a history of a neuroendocrine tumor Previous treatment: 1. Zoladex beginning in October 2015 until April 2016 2. Radiation therapy to the prostate from November through January 2016 complicated by rectal ulcers requiring hyperbaric oxygen. 3. Resumption of Zoladex with Casodex beginning of March 2017. Casodex was stopped due to suicidal ideation 4. Apalutamide beginning in March 2018. 5. For his neuroendocrine tumor, he underwent hepatic artery chemo infusion and chemo embolization about 20 years ago. Interval history: The patient is a 63-year-old man who is seen today for follow-up of PSA recurrence of prostate cancer. Since his last visit here, he has been feeling about the same. He continues to tolerate his medications acceptably. He has had some fatigue. He finds that 1 day out of every 3 or 4, he is really not able to do all lot and just takes a nap. On the other days, he is able to go about his normal activities. He has occasional hot flashes but they are not severe. He does have some episodes of anxiety for which he has been using Xanax. Appetite has been good. No nausea or vomiting. He has gained a few lb. Bowels have been moving normally. He denies any edema. He denies any other changes in his health. - Patient Self-Reported Symptoms SR Constitution: Fatigue/Malaise SR respiratory issues: Cough SR Cardiovascular issues: Dizzy/lightheaded SR Gastrointestinal issues: Change in bowel pattern, Diarrhea SR Genitourinary issues: Frequent urination SR Musculoskeletal issues: Joint pain or swelling, Muscle weakness SR Neuro issues: Headache SR Endocrine issues: Hot flashes Home Medications and Allergies Home Medications Medication Instructions Recorded Confirmed Type [CANNIBUS OIL] #0 06/01/17 History Zoladex #0 06/27/17 History apalutamide [Erleada] 05/20/18 History lorazepam [Ativan] 0.5 mg PO QD-BID PRN 07/25/18 07/25/18 History nitroglycerin 0.4 mg SUBLINGUAL Q5-15M PRN 07/25/18 07/25/18 History amlodipine 10 mg PO DAILY 08/14/18 08/14/18 History lisinopril 10 mg PO DAILY 08/14/18 08/14/18 History Allergies Allergy/AdvReac Type Severity Reaction Status Date / Time oxycodone [From PERCOCET] Allergy Severe coma, Verified 06/11/18 15:16 epinephrine [EPINEPHRINE] AdvReac Intermediate Verified 06/11/18 15:16 shellfish derived AdvReac Intermediate Verified 06/11/18 15:16 [SHELLFISH DERIVED] nuts Allergy Unknown Uncoded 11/07/17 12:43 eggs AdvReac Severe unknown Uncoded 06/11/18 15:16 Exam Vital signs: Vital Signs Temp Pulse Resp BP Pulse Ox 10/16/18 15:13 99.2 F 70 16 162/96 H 93 Intake and Output 10/15/18 10/16/18 10/16/18 23:59 07:59 15:59 Other: Weight 124.8 kg Patient Weight 10/16/18 23:59 Weight 124.8 kg - Constitutional positive no acute distress, positive average body habitus - Routine HEENT Exam Head: Present: normocephalic, atraumatic Eye: Present: EOMI, PERRL. Absent: conjunctival icterus, scleral injection ENT: Present: mucous membranes moist, oropharynx clear - Routine Neck Exam Present: supple. Absent: lymphadenopathy, thyromegaly - Routine Respiratory Exam Present: Clear to auscultation bilaterally. Absent: rales, wheezes - Routine Cardiovascular Exam Present: RRR, S1, S2. Absent: murmur - Routine Abdominal Exam Present: soft, normoactive bowel sounds. Absent: tenderness, organomegaly - Routine Extremities Exam Absent: cyanosis, clubbing, edema - Routine Back/Spine Exam Back/Spine: Absent: paraspinal tenderness, vertebral tenderness - Routine Skin Exam Present: intact. Absent: petechiae, rash - Routine Neurological Exam Present: alert, oriented X3 - Routine Psychiatric Exam Present: normal affect, normal thought process Results - Labs Laboratory Last Values WBC 7.0 X10^3/uL (4.5-11.0) 08/09/18 14:14 RBC 4.58 X10^6/uL (4.5-5.9) 08/09/18 14:14 Hgb 12.7 g/dL (13.5-17.5) L 08/09/18 14:14 Hct 37.8 % (41-53) L 08/09/18 14:14 MCV 82.4 fL (80-100) 08/09/18 14:14 MCH 27.7 PG (26-34) 08/09/18 14:14 MCHC 33.6 % (30-36) 08/09/18 14:14 RDW 14.9 % (11.6-14.8) H 08/09/18 14:14 Plt Count 164 X10^3/uL (150-400) 08/09/18 14:14 Neut % (Auto) 68.7 % (50-75) 08/09/18 14:14 Lymph % (Auto) 20.3 % (25-40) L 08/09/18 14:14 [place] % (Auto) 8.1 % (3-14) 08/09/18 14:14 Eos % (Auto) 2.3 % (2-4) 08/09/18 14:14 Baso % (Auto) 0.6 % (0-2) 08/09/18 14:14 Neut # (Auto) 4800 /uL (6278-7782) 08/09/18 14:14 Sodium 140 mmol/L (137-145) 08/09/18 14:14 Potassium 4.6 mmol/L (3.4-5.1) 08/09/18 14:14 Chloride 102 mmol/L (98-107) 08/09/18 14:14 Carbon Dioxide 29 mmol/L (22-32) 08/09/18 14:14 BUN 20 mg/dL (9-20) 08/09/18 14:14 Creatinine 0.80 mg/dL (0.66-1.25) 08/09/18 14:14 Estimated GFR > 60.0 mL/min (>60) 08/09/18 14:14 BUN/Creatinine Ratio 25.0 (6-22) H 08/09/18 14:14 Glucose 94 mg/dL (80-110) 08/09/18 14:14 Calcium 9.6 mg/dL (8.4-10.2) 08/09/18 14:14 Iron 60 ug/dL (49-181) 03/21/18 10:13 TIBC 342 ug/dL (261-462) 03/21/18 10:13 % Saturation 18 % (20-50) L 03/21/18 10:13 Transferrin 274 mg/dL (206-381) 03/21/18 10:13 Total Bilirubin 0.2 mg/dL (0.2-1.3) 08/09/18 14:14 AST 22 IU/L (17-59) 08/09/18 14:14 ALT 26 IU/L (21-72) 08/09/18 14:14 Alkaline Phosphatase 99 U/L (38-126) 08/09/18 14:14 Total Protein 7.7 g/dL (6.3-8.2) 08/09/18 14:14 Albumin 4.3 g/dL (3.5-5.0) 08/09/18 14:14 Globulin 3.4 g/dL (1.7-4.1) 08/09/18 14:14 Albumin/Globulin Ratio 1.3 (1.0-2.8) 08/09/18 14:14 Prostate Specific Ag 0.152 ng/mL (0.10-4.00) 08/09/18 14:14 Vitamin B12 489 pg/mL (239-931) 03/21/18 10:13 TSH 3.80 uIU/mL (0.47-4.68) 03/21/18 10:13 Testosterone Level 21.9 ng/dL (71.8-623) L 08/09/18 14:14 Assessment and Plan (1) Prostate cancer Non metastatic castrate resistant prostate adenocarcinoma. treatment with Apalutamide initiated on May 17, 2018. His PSA has continued to decline. It is down to 0.13. He is tolerating the medication adequately. It is possible it is contributing to his fatigue into his hypertension. However as long as these are manageable with medications I think it is in his interest to continue. He is due for Zoladex injection today. He will return to clinic in about 3 months for follow-up. (2) Neuroendocrine carcinoma metastatic to liver This patient has longstanding, 20+ year history of metastatic well-d ifferentiated NET to liver. At this point he remains non symptomatic, is not on therapy, and there is no evidence of radiographic progression. Continue monitoring for liver metastases and mesenteric lymph nodes on future CT scans
[2018-10-16] MEDS: [UNRECOGNIZED DRUG - OTHER] SUBCUT (15:49)
--- NOTE | 2018-11-06 16:29 | CM.MNRNOTE ---
Spoke with Pt's regarding refill request from [facility]. Per [facility] they haven't been able to get ahold of pt to schedule refill of Erleada. Pt's , Kristy, explained she hasn't received any calls from them, but she would call them right away to schedule.
[2019-01-15 13:08] VITALS: BP 157/88; PULSE 67; RESP 20; TEMP 37; O2SAT 95
--- NOTE | 2019-01-15 13:37 | P.PNONC_ITS ---
PN -Subjective Interval history: Diagnosis: castrate resistant non metastatic prostate cancer. He also has a history of a neuroendocrine tumor Previous treatment: 1. Zoladex beginning in October 2015 until April 2016 2. Radiation therapy to the prostate from November through January 2016 complicated by rectal ulcers requiring hyperbaric oxygen. 3. Resumption of Zoladex with Casodex beginning of March 2017. Casodex was stopped due to suicidal ideation 4. Apalutamide beginning in March 2018. 5. For his neuroendocrine tumor, he underwent hepatic artery chemo infusion and chemo embolization about 20 years ago. Interval history: The patient is a 63-year-old man who is seen today for follow-up of PSA recurrence of prostate cancer. Since his last visit here, he has noted some increased side effects that he attributes to his apalutamide. He has been bothered by a what he calls waves of fatigue. There initially lasting about 3 days or so followed by 3 or 4 good days. More recently, he notes that the fatigue has been lasting 5 or 6 days at a time. During this. See sleeps much more than typical. He feels like his memory and thinking are not as sharp. He has had trouble with weakness and falls as well. He has not noticed any worsening pain. He has not noticed any lower extremity edema. His appetite has been somewhat reduced. He denies any nausea or vomiting though. He does have occasional dyspnea on exertion but no pain in the chest. No GI complaints. He does have urinary frequency but denies any other new urinary symptoms. - Patient Self-Reported Symptoms SR Constitution: Weight loss/gain, Fatigue/Malaise SR respiratory issues: Shortness of breath SR Cardiovascular issues: Dizzy/lightheaded SR Gastrointestinal issues: Change in bowel pattern, Diarrhea SR Genitourinary issues: Frequent urination SR Musculoskeletal issues: Joint pain or swelling, Muscle weakness SR Neuro issues: Lightheaded/dizzy, Difficulty balancing SR Endocrine issues: Hot flashes Home Medications and Allergies Home Medications Medication Instructions Recorded Confirmed Type [CANNIBUS OIL] #0 06/01/17 History Zoladex #0 06/27/17 History apalutamide [Erleada] DAILY 05/20/18 History lorazepam [Ativan] 0.5 mg PO QD-BID PRN 07/25/18 01/15/19 History nitroglycerin 0.4 mg SUBLINGUAL Q5-15M PRN 07/25/18 01/15/19 History amlodipine 10 mg PO DAILY 08/14/18 01/15/19 History lisinopril 10 mg PO DAILY 08/14/18 01/15/19 History Allergies Allergy/AdvReac Type Severity Reaction Status Date / Time oxycodone [From PERCOCET] Allergy Severe coma, Verified 06/11/18 15:16 epinephrine [EPINEPHRINE] AdvReac Intermediate Verified 06/11/18 15:16 shellfish derived AdvReac Intermediate Verified 06/11/18 15:16 [SHELLFISH DERIVED] nuts Allergy Unknown Uncoded 11/07/17 12:43 eggs AdvReac Severe unknown Uncoded 06/11/18 15:16 Exam Vital signs: Vital Signs Temp Pulse Resp BP Pulse Ox 01/15/19 13:08 98.6 F 67 20 157/88 H 95 Intake and Output 01/14/19 01/15/19 01/15/19 23:59 07:59 15:59 Other: Weight 127 kg Patient Weight 01/15/19 23:59 Weight 127 kg - Constitutional positive no acute distress, positive average body habitus - Routine HEENT Exam Head: Present: normocephalic, atraumatic Eye: Present: EOMI, PERRL. Absent: conjunctival icterus, scleral injection ENT: Present: mucous membranes moist, oropharynx clear - Routine Neck Exam Present: supple. Absent: lymphadenopathy, thyromegaly - Routine Chest/Breast/Axilla Exam Axillae: Absent: lymphadenopathy - Routine Respiratory Exam Present: Clear to auscultation bilaterally. Absent: rales, wheezes - Routine Cardiovascular Exam Present: RRR, S1, S2. Absent: murmur - Routine Abdominal Exam Present: soft, normoactive bowel sounds. Absent: tenderness, organomegaly, mass - Routine Extremities Exam Absent: cyanosis, clubbing, edema - Routine Back/Spine Exam Back/Spine: Absent: vertebral tenderness - Routine Skin Exam Present: intact. Absent: petechiae, rash - Routine Neurological Exam Present: alert, oriented X3 - Routine Psychiatric Exam Present: normal affect, normal thought process Results - Labs Laboratory Last Values WBC 7.0 X10^3/uL (4.5-11.0) 08/09/18 14:14 RBC 4.58 X10^6/uL (4.5-5.9) 08/09/18 14:14 Hgb 12.7 g/dL (13.5-17.5) L 08/09/18 14:14 Hct 37.8 % (41-53) L 08/09/18 14:14 MCV 82.4 fL (80-100) 08/09/18 14:14 MCH 27.7 PG (26-34) 08/09/18 14:14 MCHC 33.6 % (30-36) 08/09/18 14:14 RDW 14.9 % (11.6-14.8) H 08/09/18 14:14 Plt Count 164 X10^3/uL (150-400) 08/09/18 14:14 Neut % (Auto) 68.7 % (50-75) 08/09/18 14:14 Lymph % (Auto) 20.3 % (25-40) L 08/09/18 14:14 [place] % (Auto) 8.1 % (3-14) 08/09/18 14:14 Eos % (Auto) 2.3 % (2-4) 08/09/18 14:14 Baso % (Auto) 0.6 % (0-2) 08/09/18 14:14 Neut # (Auto) 4800 /uL (1373-0817) 08/09/18 14:14 Sodium 140 mmol/L (137-145) 08/09/18 14:14 Potassium 4.6 mmol/L (3.4-5.1) 08/09/18 14:14 Chloride 102 mmol/L (98-107) 08/09/18 14:14 Carbon Dioxide 29 mmol/L (22-32) 08/09/18 14:14 BUN 20 mg/dL (9-20) 08/09/18 14:14 Creatinine 0.80 mg/dL (0.66-1.25) 08/09/18 14:14 Estimated GFR > 60.0 mL/min (>60) 08/09/18 14:14 BUN/Creatinine Ratio 25.0 (6-22) H 08/09/18 14:14 Glucose 94 mg/dL (80-110) 08/09/18 14:14 Calcium 9.6 mg/dL (8.4-10.2) 08/09/18 14:14 Iron 60 ug/dL (49-181) 03/21/18 10:13 TIBC 342 ug/dL (261-462) 03/21/18 10:13 % Saturation 18 % (20-50) L 03/21/18 10:13 Transferrin 274 mg/dL (206-381) 03/21/18 10:13 Total Bilirubin 0.2 mg/dL (0.2-1.3) 08/09/18 14:14 AST 22 IU/L (17-59) 08/09/18 14:14 ALT 26 IU/L (21-72) 08/09/18 14:14 Alkaline Phosphatase 99 U/L (38-126) 08/09/18 14:14 Total Protein 7.7 g/dL (6.3-8.2) 08/09/18 14:14 Albumin 4.3 g/dL (3.5-5.0) 08/09/18 14:14 Globulin 3.4 g/dL (1.7-4.1) 08/09/18 14:14 Albumin/Globulin Ratio 1.3 (1.0-2.8) 08/09/18 14:14 Prostate Specific Ag 0.152 ng/mL (0.10-4.00) 08/09/18 14:14 Vitamin B12 489 pg/mL (239-931) 03/21/18 10:13 TSH 3.80 uIU/mL (0.47-4.68) 03/21/18 10:13 Testosterone Level 21.9 ng/dL (71.8-623) L 08/09/18 14:14 Assessment and Plan (1) Prostate cancer Non metastatic castrate resistant prostate adenocarcinoma. treatment with Apalu tamide initiated on May 17, 2018. His PSA has increased a little bit since his last visit. Is currently 0.3. He is having increasing toxicity as well. We discussed options today. One would be to take a treatment break from the apalutamide. If this drug is responsible for symptoms, expect improvement although perhaps not complete resolution within the next 3-4 weeks. The downside would be that his PSA could potentially go up more quickly. We also discussed the possibility of a dose reduction which may less than the degree of side effects but still provide some degree of control over his PSA. His PSA is increased very slightly. It is too soon to tell whether that is really a stable PSA if that is a trend towards increase. He has elected to decrease the dose. He will cut back to 2 pills a day. He will return to clinic here in 1 month for follow-up. (2) Neuroendocrine carcinoma metastatic to liver This patient has longstanding, 20+ year history of metastatic well- differentiated NET to liver. At this point he remains non symptomatic, is not on therapy, and there is no evidence of radiographic progression. Continue monitoring for liver metastases and mesenteric lymph nodes on future CT scans
[2019-01-15] MEDS: [UNRECOGNIZED DRUG - OTHER] SUBCUT (13:59)
[2019-02-06 12:51] LABS: Add Manual Diff / Slide Review NO; Basophils Absolute Auto 0 /uL (0-100); Basophils Percent Auto 0.3 % (0-2); Eosinophils Absolute Auto 200 /uL (0-450); Eosinophils Percent Auto 2.4 % (2-4); Hematocrit 38.8 % (41-53); Hemoglobin 12.8 g/dL (13.5-17.5); Lymphocytes Absolute Auto 1600 /uL (1100-4500); Lymphocytes Percent Auto 19.4 % (25-40); Mean Corpuscular HGB Conc 32.8 % (30-36); Mean Corpuscular Hemoglobin 27.1 PG (26-34); Mean Corpuscular Volume 82.6 fL (80-100); Monocytes Absolute Auto 800 /uL (0-900); Neutrophils Absolute Auto 5400 /uL (1500-7000); Neutrophils Percent Auto 67.9 % (50-75); Platelet Count 176 X10^3/uL (150-400); Red Cell Distribution Width 14.9 % (11.6-14.8)
[2019-02-06 13:37] LABS: Alanine Aminotransferase 24 IU/L (21-72); Albumin 4.4 g/dL (3.5-5.0); Albumin Globulin Ratio 1.4 (1.0-2.8); Alkaline Phosphatase 119 U/L (38-126); Aspartate Aminotransferase 30 IU/L (17-59); BUN Creatinine Ratio 23.8 (6-22); Bilirubin Total 0.4 mg/dL (0.2-1.3); Blood Urea Nitrogen 19 mg/dL (9-20); Calcium 9.5 mg/dL (8.4-10.2); Carbon Dioxide 29 mmol/L (22-32); Chloride 102 mmol/L (98-107); Estimated Glomerular Filt Rate > 60.0 mL/min (>60); Globulin 3.2 g/dL (1.7-4.1); Glucose 96 mg/dL (80-110); HEMOLYSIS < 15 (0-50); Potassium 3.8 mmol/L (3.4-5.1); Sodium 142 mmol/L (137-145); Total Protein 7.6 g/dL (6.3-8.2)
[2019-02-06 14:05] LABS: Prostate Specific Antigen 0.406 ng/mL (0.10-4.00)
[2019-02-12 10:52] VITALS: BP 138/80; PULSE 73; RESP 18; TEMP 37; O2SAT 95
[2019-02-12 10:58] VITALS: BP 138/80; PULSE 73; RESP 18; TEMP 37; O2SAT 95
--- NOTE | 2019-02-12 11:44 | P.PNONC_ITS ---
PN -Subjective Interval history: Diagnosis: castrate resistant non metastatic prostate cancer. He also has a history of a neuroendocrine tumor Previous treatment: 1. Zoladex beginning in October 2015 until April 2016 2. Radiation therapy to the prostate from November through January 2016 complicated by rectal ulcers requiring hyperbaric oxygen. 3. Resumption of Zoladex with Casodex beginning of March 2017. Casodex was stopped due to suicidal ideation 4. Apalutamide beginning in March 2018. 5. For his neuroendocrine tumor, he underwent hepatic artery chemo infusion and chemo embolization about 20 years ago. Interval history: The patient is a 63-year-old man who is seen today for follow-up of PSA recurrence of prostate cancer. At his last visit here, he was bothered by increasing fatigue and weakness. We decrease the dose of his apalutamide to 2 pills daily. He has been tolerating this much better. He notes that his blood pressure is lower. His strength and energy level have substantially improved. He is able to go about all of his normal activities. He has not noticed any GI complaints. No shortness of breath or cough. He is not having any pain. No fevers chills or sweats. He denies any other changes in his health. - Patient Self-Reported Symptoms SR Constitution: Weight loss/gain, Fatigue/Malaise SR respiratory issues: Shortness of breath SR Cardiovascular issues: Dizzy/lightheaded SR Gastrointestinal issues: Change in bowel pattern, Diarrhea SR Genitourinary issues: Frequent urination SR Musculoskeletal issues: Joint pain or swelling, Muscle weakness SR Neuro issues: Lightheaded/dizzy, Difficulty balancing SR Endocrine issues: Hot flashes Home Medications and Allergies Home Medications Medication Instructions Recorded Confirmed Type [CANNIBUS OIL] #0 06/01/17 History Zoladex #0 06/27/17 History lorazepam [Ativan] 0.5 mg PO QD-BID PRN 07/25/18 02/12/19 History nitroglycerin 0.4 mg SUBLINGUAL Q5-15M PRN 07/25/18 02/12/19 History amlodipine 10 mg PO DAILY 08/14/18 02/12/19 History lisinopril 10 mg PO DAILY 08/14/18 02/12/19 History apalutamide [Erleada] 120 mg PO DAILY 30 Days #60 tab 02/11/19 02/12/19 Rx sertraline [Zoloft] 25 mg PO DAILY 02/12/19 02/12/19 History Allergies Allergy/AdvReac Type Severity Reaction Status Date / Time oxycodone [From PERCOCET] Allergy Severe coma, Verified 06/11/18 15:16 epinephrine [EPINEPHRINE] AdvReac Intermediate Verified 06/11/18 15:16 shellfish derived AdvReac Intermediate Verified 06/11/18 15:16 [SHELLFISH DERIVED] nuts Allergy Unknown Uncoded 11/07/17 12:43 eggs AdvReac Severe unknown Uncoded 06/11/18 15:16 Exam Vital signs: Vital Signs Temp Pulse Resp BP Pulse Ox 02/12/19 10:58 98.6 F 73 18 138/80 95 02/12/19 10:52 98.6 F 73 18 138/80 95 Intake and Output 02/11/19 02/12/19 02/12/19 23:59 07:59 15:59 Other: Weight 125.9 kg Patient Weight 02/12/19 23:59 Weight 125.9 kg - Constitutional positive no acute distress, positive obese - Routine HEENT Exam Head: Present: normocephalic, atraumatic Eye: Present: EOMI, PERRL. Absent: conjunctival icterus, scleral injection ENT: Present: mucous membranes moist, oropharynx clear - Routine Neck Exam Present: supple. Absent: lymphadenopathy, thyromegaly - Routine Respiratory Exam Present: Clear to auscultation bilaterally. Absent: rales, wheezes - Routine Cardiovascular Exam Present: RRR, S1, S2. Absent: murmur - Routine Abdominal Exam Present: soft, normoactive bowel sounds. Absent: tenderness, organomegaly, mass - Routine Extremities Exam Absent: cyanosis, clubbing, edema - Routine Back/Spine Exam Back/Spine: Absent: vertebral tenderness - Routine Skin Exam Present: intact. Absent: petechiae, rash - Routine Neurological Exam Present: alert, oriented X3 Results - Labs Laboratory Last Values WBC 8.0 X10^3/uL (4.5-11.0) 02/06/19 12:23 RBC 4.70 X10^6/uL (4.5-5.9) 02/06/19 12:23 Hgb 12.8 g/dL (13.5-17.5) L 02/06/19 12:23 Hct 38.8 % (41-53) L 02/06/19 12:23 MCV 82.6 fL (80-100) 02/06/19 12:23 MCH 27.1 PG (26-34) 02/06/19 12:23 MCHC 32.8 % (30-36) 02/06/19 12:23 RDW 14.9 % (11.6-14.8) H 02/06/19 12:23 Plt Count 176 X10^3/uL (150-400) 02/06/19 12:23 Neut % (Auto) 67.9 % (50-75) 02/06/19 12:23 Lymph % (Auto) 19.4 % (25-40) L 02/06/19 12:23 [place] % (Auto) 10.0 % (3-14) 02/06/19 12:23 Eos % (Auto) 2.4 % (2-4) 02/06/19 12:23 Baso % (Auto) 0.3 % (0-2) 02/06/19 12:23 Neut # (Auto) 5400 /uL (3516-2820) 02/06/19 12:23 Lymph # (Auto) 1600 /uL (9052-1658) 02/06/19 12:23 [place] # (Auto) 800 /uL (0-900) 02/06/19 12:23 Eos # (Auto) 200 /uL (0-450) 02/06/19 12:23 Baso # (Auto) 0 /uL (0-100) 02/06/19 12:23 Sodium 142 mmol/L (137-145) 02/06/19 12:23 Potassium 3.8 mmol/L (3.4-5.1) 02/06/19 12:23 Chloride 102 mmol/L (98-107) 02/06/19 12:23 Carbon Dioxide 29 mmol/L (22-32) 02/06/19 12:23 BUN 19 mg/dL (9-20) 02/06/19 12:23 Creatinine 0.80 mg/dL (0.66-1.25) 02/06/19 12:23 Estimated GFR > 60.0 mL/min (>60) 02/06/19 12:23 BUN/Creatinine Ratio 23.8 (6-22) H 02/06/19 12:23 Glucose 96 mg/dL (80-110) 02/06/19 12:23 Calcium 9.5 mg/dL (8.4-10.2) 02/06/19 12:23 Iron 60 ug/dL (49-181) 03/21/18 10:13 TIBC 342 ug/dL (261-462) 03/21/18 10:13 % Saturation 18 % (20-50) L 03/21/18 10:13 Transferrin 274 mg/dL (206-381) 03/21/18 10:13 Total Bilirubin 0.4 mg/dL (0.2-1.3) 02/06/19 12:23 AST 30 IU/L (17-59) 02/06/19 12:23 ALT 24 IU/L (21-72) 02/06/19 12:23 Alkaline Phosphatase 119 U/L (38-126) 02/06/19 12:23 Total Protein 7.6 g/dL (6.3-8.2) 02/06/19 12:23 Albumin 4.4 g/dL (3.5-5.0) 02/06/19 12:23 Globulin 3.2 g/dL (1.7-4.1) 02/06/19 12:23 Albumin/Globulin Ratio 1.4 (1.0-2.8) 02/06/19 12:23 Prostate Specific Ag 0.406 ng/mL (0.10-4.00) 02/06/19 12:23 Vitamin B12 489 pg/mL (239-931) 03/21/18 10:13 TSH 3.80 uIU/mL (0.47-4.68) 03/21/18 10:13 Testosterone Level 21.9 ng/dL (71.8-623) L 08/09/18 14:14 Assessment and Plan (1) Prostate cancer Non metastatic castrate resistant prostate adenocarcinoma. treatment with Apalutamide initiated on May 17, 2018. He is tolerating it much better on 2 pills daily. His PSA is climbing however. It was 0.4 this time period he has no evidence of visible metastasis. Will continue with his current regimen for now. We will plan on checking scans when his PSA approaches 2. Other hormone options would include Xtandi. If he develops visible metastasis than Provenge or chemotherapy could be considered. He has elected to decrease the dose. He will cut back to 2 pills a day. He will return to clinic here in 1 month for follow-up. (2) Neuroendocrine carcinoma metastatic to liver This patient has longstanding, 20+ year history of metastatic well- differentiated NET to liver. At this point he remains non symptomatic, is not on therapy, and there is no evidence of radiographic progression. Continue monitoring for liver metastases and mesenteric lymph nodes on future CT scans
--- NOTE | 2019-02-12 12:00 | ONC.MSW ---
Description: Check-in, medication funding questions Activity: Met with pt to discuss questions that he and his had re: potential co-pay funding for a proposed new drug he may be switching to. Agreed to talk more after their provider appt. today to determine if he will remain on the same drug that he's been on (which has current funding) or switch and apply for assistance. *After provider appt., Dr. Deleon decided to keep him on his current medication until there is further evidence of rising PSA or metastasis progression. No financial assistance needed at this time.
[2019-03-12 12:18] LABS: Add Manual Diff / Slide Review NO; Basophils Absolute Auto 0 /uL (0-100); Basophils Percent Auto 0.4 % (0-2); Eosinophils Absolute Auto 200 /uL (0-450); Hematocrit 40.4 % (41-53); Hemoglobin 13.1 g/dL (13.5-17.5); Lymphocytes Absolute Auto 1700 /uL (1100-4500); Lymphocytes Percent Auto 20.1 % (25-40); Mean Corpuscular HGB Conc 32.4 % (30-36); Mean Corpuscular Hemoglobin 27.1 PG (26-34); Mean Corpuscular Volume 83.6 fL (80-100); Monocytes Absolute Auto 700 /uL (0-900); Neutrophils Absolute Auto 5700 /uL (1500-7000); Neutrophils Percent Auto 68.5 % (50-75); Platelet Count 170 X10^3/uL (150-400); Red Blood Cell Count 4.83 X10^6/uL (4.5-5.9); Red Cell Distribution Width 15.2 % (11.6-14.8); White Blood Cell Count 8.3 X10^3/uL (4.5-11.0)
[2019-03-12 12:35] LABS: Alanine Aminotransferase 29 IU/L (21-72); Albumin 4.3 g/dL (3.5-5.0); Albumin Globulin Ratio 1.3 (1.0-2.8); Alkaline Phosphatase 97 U/L (38-126); Aspartate Aminotransferase 30 IU/L (17-59); BUN Creatinine Ratio 22.9 (6-22); Bilirubin Total 0.4 mg/dL (0.2-1.3); Blood Urea Nitrogen 16 mg/dL (9-20); Calcium 9.5 mg/dL (8.4-10.2); Carbon Dioxide 30 mmol/L (22-32); Chloride 101 mmol/L (98-107); Estimated Glomerular Filt Rate > 60.0 mL/min (>60); Globulin 3.3 g/dL (1.7-4.1); Glucose 107 mg/dL (80-110); HEMOLYSIS < 15 (0-50); Potassium 4.1 mmol/L (3.4-5.1); Sodium 142 mmol/L (137-145); Total Protein 7.6 g/dL (6.3-8.2)
[2019-03-12 13:02] LABS: Prostate Specific Antigen 0.602 ng/mL (0.10-4.00)
--- NOTE | 2019-03-18 13:51 | ONC.SCHED ---
Advised patient to call his Primary Care for new referral/auth for meeks
[2019-03-18 14:16] VITALS: BP 175/96; PULSE 74; RESP 16; TEMP 37.1; O2SAT 96
--- NOTE | 2019-03-18 14:43 | ONC.MSW ---
Description: Difficulty Coping/Increased Depression Activity: Pt came in for his f/u appt. with Dr. Deleon today, his pulled this LARRY CAR OPERATOR aside and shared that pt has been expressing suicidal ideation on a frequent basis, increased depression and irritability condusive with his past experiences of similar symptoms which all related to his cancer medication. He does not have a plan, does not have the means, does not have intent, and is safe at this time. LARRY CAR OPERATOR spoke with Dr. Deleon about these concerns prior to his going into the exam room. LARRY CAR OPERATOR will f/u with obtaining an intake appointment packet for him to complete in order to be seen by our Behavioral Health psychiatrist, Dr. Doss. LARRY CAR OPERATOR will also plan to f/u tomorrow morning to talk more with patient about support and plan for assistance.
--- NOTE | 2019-03-18 14:51 | P.PNONC_ITS ---
PN -Subjective Interval history: Diagnosis: castrate resistant non metastatic prostate cancer. He also has a history of a neuroendocrine tumor Previous treatment: 1. Zoladex beginning in October 2015 until April 2016 2. Radiation therapy to the prostate from November through January 2016 complicated by rectal ulcers requiring hyperbaric oxygen. 3. Resumption of Zoladex with Casodex beginning of March 2017. Casodex was stopped due to suicidal ideation 4. Apalutamide beginning in March 2018. 5. For his neuroendocrine tumor, he underwent hepatic artery chemo infusion and chemo embolization about 20 years ago. Interval history: The patient is a 63-year-old man who is seen today for follow-up of PSA recurrence of prostate cancer. Since his last visit here, he has been a bothered by a increasing depression and suicidal thoughts. He does not have a plan. He notes that he does not feel as bad now as he did previously when he was on Casodex. He also has been bothered by some cough, hypertension nausea and recently some headache. He has just recently started on lisinopril. His appetite has been low but his weight has been fairly stable. He is not having any shortness of breath. He has not noted any adenopathy. Other than the headache, he denies any other new aches or pains. He does have some hot flashes but no fevers or chills. He denies any urinary symptoms. He denies any other changes in his health. - Patient Self-Reported Symptoms SR Constitution: Fatigue/Malaise, Night Sweats SR ears, nose, mouth, throat issues: Cough SR respiratory issues: Cough, Shortness of breath SR Cardiovascular issues: Shortness of breath with activity or lying flat, Dizzy/lightheaded SR Skin issues: Dry skin, Blistering or peeling SR Gastrointestinal issues: Nausea SR Genitourinary issues: Frequent urination SR Musculoskeletal issues: Joint pain or swelling SR Neuro issues: Headache, Lightheaded/dizzy, Difficulty balancing SR Endocrine issues: Cold intolerance, Heat intolerance, Excessive thirst, Excessive urination, Hot flashes Home Medications and Allergies Home Medications Medication Instructions Recorded Confirmed Type [CANNIBUS OIL] #0 06/01/17 History Zoladex #0 06/27/17 History lorazepam [Ativan] 0.5 mg PO QD-BID PRN 07/25/18 02/12/19 History nitroglycerin 0.4 mg SUBLINGUAL Q5-15M PRN 07/25/18 02/12/19 History amlodipine 10 mg PO DAILY 08/14/18 02/12/19 History lisinopril 10 mg PO DAILY 08/14/18 02/12/19 History apalutamide [Erleada] 120 mg PO DAILY 30 Days #60 tab 02/11/19 02/12/19 Rx sertraline [Zoloft] 25 mg PO DAILY 02/12/19 02/12/19 History enzalutamide [Xtandi] 160 mg PO DAILY #120 cap 03/18/19 Rx ondansetron 8 mg PO Q8H 30 Days #30 tab 03/18/19 Rx Allergies Allergy/AdvReac Type Severity Reaction Status Date / Time oxycodone [From PERCOCET] Allergy Severe coma, Verified 06/11/18 15:16 epinephrine [EPINEPHRINE] AdvReac Intermediate Verified 06/11/18 15:16 shellfish derived AdvReac Intermediate Verified 06/11/18 15:16 [SHELLFISH DERIVED] nuts Allergy Unknown Uncoded 11/07/17 12:43 eggs AdvReac Severe unknown Uncoded 06/11/18 15:16 Exam Vital signs: Vital Signs Temp Pulse Resp BP Pulse Ox 03/18/19 14:16 98.8 F 74 16 175/96 H 96 Intake and Output 03/17/19 03/18/19 03/18/19 23:59 07:59 15:59 Other: Weight 127.3 kg Patient Weight 03/18/19 23:59 Weight 127.3 kg - Constitutional positive no acute distress, positive average body habitus - Routine HEENT Exam Head: Present: normocephalic, atraumatic Eye: Present: EOMI, PERRL. Absent: conjunctival icterus, scleral injection ENT: Present: mucous membranes moist, oropharynx clear - Routine Neck Exam Present: supple. Absent: lymphadenopathy, thyromegaly - Routine Respiratory Exam Present: Clear to auscultation bilaterally. Absent: rales, wheezes - Routine Cardiovascular Exam Present: RRR, S1, S2. Absent: murmur - Routine Abdominal Exam Present: soft, normoactive bowel sounds. Absent: tenderness, organomegaly, mass - Routine Extremities Exam Absent: cyanosis, clubbing, edema - Routine Skin Exam Present: intact. Absent: petechiae, rash - Routine Neurological Exam Present: alert, oriented X3 - Routine Psychiatric Exam Present: normal affect, normal thought process Results - Labs Laboratory Last Values WBC 8.3 X10^3/uL (4.5-11.0) 03/12/19 11:22 RBC 4.83 X10^6/uL (4.5-5.9) 03/12/19 11:22 Hgb 13.1 g/dL (13.5-17.5) L 03/12/19 11:22 Hct 40.4 % (41-53) L 03/12/19 11:22 MCV 83.6 fL (80-100) 03/12/19 11:22 MCH 27.1 PG (26-34) 03/12/19 11:22 MCHC 32.4 % (30-36) 03/12/19 11:22 RDW 15.2 % (11.6-14.8) H 03/12/19 11:22 Plt Count 170 X10^3/uL (150-400) 03/12/19 11:22 Neut % (Auto) 68.5 % (50-75) 03/12/19 11:22 Lymph % (Auto) 20.1 % (25-40) L 03/12/19 11:22 [place] % (Auto) 8.0 % (3-14) 03/12/19 11:22 Eos % (Auto) 3.0 % (2-4) 03/12/19 11:22 Baso % (Auto) 0.4 % (0-2) 03/12/19 11:22 Neut # (Auto) 5700 /uL (0328-8882) 03/12/19 11:22 Lymph # (Auto) 1700 /uL (4890-1735) 03/12/19 11:22 [place] # (Auto) 700 /uL (0-900) 03/12/19 11:22 Eos # (Auto) 200 /uL (0-450) 03/12/19 11:22 Baso # (Auto) 0 /uL (0-100) 03/12/19 11:22 Sodium 142 mmol/L (137-145) 03/12/19 11:22 Potassium 4.1 mmol/L (3.4-5.1) 03/12/19 11:22 Chloride 101 mmol/L (98-107) 03/12/19 11:22 Carbon Dioxide 30 mmol/L (22-32) 03/12/19 11:22 BUN 16 mg/dL (9-20) 03/12/19 11:22 Creatinine 0.70 mg/dL (0.66-1.25) 03/12/19 11:22 Estimated GFR > 60.0 mL/min (>60) 03/12/19 11:22 BUN/Creatinine Ratio 22.9 (6-22) H 03/12/19 11:22 Glucose 107 mg/dL (80-110) 03/12/19 11:22 Calcium 9.5 mg/dL (8.4-10.2) 03/12/19 11:22 Iron 60 ug/dL (49-181) 03/21/18 10:13 TIBC 342 ug/dL (261-462) 03/21/18 10:13 % Saturation 18 % (20-50) L 03/21/18 10:13 Transferrin 274 mg/dL (206-381) 03/21/18 10:13 Total Bilirubin 0.4 mg/dL (0.2-1.3) 03/12/19 11:22 AST 30 IU/L (17-59) 03/12/19 11:22 ALT 29 IU/L (21-72) 03/12/19 11:22 Alkaline Phosphatase 97 U/L (38-126) 03/12/19 11:22 Total Protein 7.6 g/dL (6.3-8.2) 03/12/19 11:22 Albumin 4.3 g/dL (3.5-5.0) 03/12/19 11:22 Globulin 3.3 g/dL (1.7-4.1) 03/12/19 11:22 Albumin/Globulin Ratio 1.3 (1.0-2.8) 03/12/19 11:22 Prostate Specific Ag 0.602 ng/mL (0.10-4.00) 03/12/19 11:22 Vitamin B12 489 pg/mL (239-931) 03/21/18 10:13 TSH 3.80 uIU/mL (0.47-4.68) 03/21/18 10:13 Testosterone Level 21.9 ng/dL (71.8-623) L 08/09/18 14:14 Assessment and Plan (1) Prostate cancer Non metastatic castrate resistant prostate adenocarcinoma. He has had an initial good response to the apalutamide but recently has had some PSA increase as well as some increasing side effects including suicidal ideation. He was considering increasing his dose but I think it is unlikely to control his PSA and would certainly a 2 4 increased toxicity. Instead, we will try Xtandi. We did discuss the possibility of Zytiga and also chemotherapy. We talked about Provenge as being a potential treatment if he did have evidence of visible metastasis. I have also given a prescription for some Zofran for his nausea. He will return to clinic in about a month or so for follow-up. I think would be reasonable to repeat CT scans and bone scans as his PSA is increasing has been more than a year since his last imaging. 40 minutes was spent with the patient the majority in counseling. (2) Neuroendocrine carcinoma metastatic to liver This patient has longstanding, 20+ year history of metastatic well- differentiated NET to liver. At this point he remains non symptomatic, is not on therapy, and there is no evidence of radiographic progression. Continue monitoring for liver metastases and mesenteric lymph nodes on future CT scans
--- NOTE | 2019-03-19 07:39 | PC.NURSE ---
Xtandi prior auth submitted to [facility], recieved fax saying this medication does not require prior auth for Medicare patients. Xtandi script faxed to [facility] at [phone]. Yaakov Guevara RP
--- NOTE | 2019-03-19 13:38 | ONC.MSW ---
Description: T/C re: coping, Xtandi financial assistance Activity: Called pt/spouse to check-in re: coping and emotional status today, post-suicidal ideation reported to us yesterday. Dr. Deleon is switching pt's medicatio to Xtandi, primarily due to the Erleada having worsened pt's depression and mood/coping. This has been pt's experience with that whole class of medications now for a few years. [employer] will begin looking into co-pay financial assistance for the Xtandi. Spouse states that pt is not good today, however not expressing suicidality. She will contact this CAR HOPPER via email to share more information that she didn't feel comfortable sharing over the phone, due to pt being right there with her. CAR HOPPER will respond with secure email, and continue care coordination. CAR HOPPER called [facility] and requested that a new pt intake packet be mailed, per pt/spouse request, for medication eval and management for psych meds.
--- NOTE | 2019-03-19 16:16 | ONC.MSW ---
Description: secure email communication Pt's sent this MINE UTILITY OPERATOR an email asking the following questions: José Miguel thinks that Dr Deleon said 1)? that the cancer IS metastasizing.? 2) When José Miguel begins his treatment with the new drug Xtandi,? that gives him? ?only about 20 months before that drug is no longer effective.? Is the next stage? chemotherapy again?? Bottom line: What's the survival rate? Is José Miguel's prognosis terminal? MINE UTILITY OPERATOR response: Hi Kristy, good questions, however, much of that is not known. What I can tell you, based on what Dr. Deleon said, is that no, it is NOT metastatic at this time. When he begins the new Xtandi medication, there is no way for anyone to know how long it will be effective or not, there is no magic number (like 20-months). Many things could happen that can change the whole course: how he responds to it, if he experiences side-effects, if his cancer does metastasize, if he stabilizes and is on it longer, etc. Like Dr. Deleon said, if in fact there becomes any evidence of metastasis, then we would look at Zytiga, chemotherapy, and/or another drug called Provenge. There are still options available. He is not considered terminal, and survival rate is based on a number of factors, not just the medication?s efficacy. Hope that helps! I called [facility] today and they are mailing José Miguel out an intake packet. Please let me know how he is doing by the beginning of next week? If, over the weekend, he begins talking about suicide again, or threatens it, you can either take him to the ER or call 911 if you feel he is not safe or not listening to you. Thanks Kristy! There is also the Care Crisis Line, which he can call and speak to a Master?s level mental health professional for help- . Talk to you soon, Jailyn : )
--- NOTE | 2019-03-20 12:17 | ONC.MSW ---
Description: Financial Assistance: [employer] Activity: Pt came in and signed the [employer] co-pay assistance forms for the Xtandi. Will f/u with pt once a determination for approval/denial has been made. Pt/spouse also shared that they just learned a few days ago that their referral auth. to see Dr. Deleon is expiring as of today. Pt's has already contacted his PCP to submit a new referral for continuing care w/Dr. Deleon.
--- NOTE | 2019-03-24 10:55 | ONC.MSW ---
Description: T/C re: [employer] patient assistance denial Activity: Called and left a message for pt's that we received a denial letter from the [facility] Patient Assistance Program for the Xtandi, stating that his income was too high to be eligible. MID WIFE encouraged for them to appeal, and to please bring in a copy of their 2018 tax return in order to begin the appeal process.
--- NOTE | 2019-04-01 15:47 | ONC.SCHED ---
I left a msg for this patient to schedule his follow up. I was able to schedule his CT and NM bone scan for 04/16/19 check in time of 9:10 and patient will also need labs this day.?
[2019-04-16 12:15] LABS: Add Manual Diff / Slide Review NO; Basophils Absolute Auto 0 /uL (0-100); Basophils Percent Auto 0.2 % (0-2); Eosinophils Absolute Auto 200 /uL (0-450); Eosinophils Percent Auto 2.4 % (2-4); Hematocrit 37.9 % (41-53); Hemoglobin 12.9 g/dL (13.5-17.5); Lymphocytes Absolute Auto 1600 /uL (1100-4500); Lymphocytes Percent Auto 17.6 % (25-40); Mean Corpuscular Hemoglobin 27.3 PG (26-34); Mean Corpuscular Volume 80.2 fL (80-100); Monocytes Absolute Auto 800 /uL (0-900); Monocytes Percent Auto 8.3 % (3-14); Neutrophils Absolute Auto 6600 /uL (1500-7000); Neutrophils Percent Auto 71.5 % (50-75); Platelet Count 180 X10^3/uL (150-400); Red Blood Cell Count 4.73 X10^6/uL (4.5-5.9); Red Cell Distribution Width 15.2 % (11.6-14.8); White Blood Cell Count 9.2 X10^3/uL (4.5-11.0)
[2019-04-16 12:27] LABS: Alanine Aminotransferase 36 IU/L (21-72); Albumin 4.4 g/dL (3.5-5.0); Albumin Globulin Ratio 1.3 (1.0-2.8); Alkaline Phosphatase 100 U/L (38-126); Aspartate Aminotransferase 36 IU/L (17-59); Bilirubin Total 0.6 mg/dL (0.2-1.3); Blood Urea Nitrogen 15 mg/dL (9-20); Calcium 9.4 mg/dL (8.4-10.2); Carbon Dioxide 27 mmol/L (22-32); Chloride 100 mmol/L (98-107); Estimated Glomerular Filt Rate > 60.0 mL/min (>60); Globulin 3.4 g/dL (1.7-4.1); Glucose 102 mg/dL (80-110); HEMOLYSIS < 15 (0-50); Potassium 3.7 mmol/L (3.4-5.1); Sodium 138 mmol/L (137-145); Total Protein 7.8 g/dL (6.3-8.2)
[2019-04-16 12:57] LABS: Prostate Specific Antigen 0.787 ng/mL (0.10-4.00)
--- NOTE | 2019-04-22 10:16 | ONC.MSW ---
Description: [employer] co-pay assistance Activity: Faxed application to [employer]. Will update pt once a determination for approval has been made.
--- NOTE | 2019-04-23 12:15 | ONC.MSW ---
Description: T/C-[facility], [place], patient Activity: Called [place], they state that they have not yet received pt's proof of income. Called pt, he states that he emailed it to them yesterday, however after calling [facility], it turns out that he emailed it to them and not [employer]. They will forward these on today in order to expedite the approval of his co-pay assistance and schedule delivery of the drug.
--- NOTE | 2019-04-29 11:26 | ONC.MSW ---
Description: Xtandi co-pay approval Activity: Received notification that pt's co-pay assistance for Xtandi has been approved Effective: 04/29/19-07/29/19. [employer] [facility] pharmacy support solutions:
[2019-04-29 13:27] VITALS: BP 168/96; PULSE 84; RESP 18; TEMP 37; O2SAT 98
--- NOTE | 2019-04-29 13:54 | ONC.PN ---
PN -Subjective Interval history: Diagnosis: castrate resistant non metastatic prostate cancer. He also has a history of a neuroendocrine tumor Previous treatment: 1. Zoladex beginning in October 2015 until April 2016 2. Radiation therapy to the prostate from November through January 2016 complicated by rectal ulcers requiring hyperbaric oxygen. 3. Resumption of Zoladex with Casodex beginning of March 2017. Casodex was stopped due to suicidal ideation 4. Apalutamide beginning in March 2018. 5. Xtandi starting in February 2019. 6. For his neuroendocrine tumor, he underwent hepatic artery chemo infusion and chemo embolization about 20 years ago. Interval history: The patient is a 63-year-old man who is seen today for follow-up of PSA recurrence of prostate cancer. Since his last visit here, he started on Xtandi about 3-4 weeks ago. Initially, he was tolerating it quite well but more recently has begun to develop increasing fatigue. He has had some nausea but no vomiting. He has noted some hot flashes and sweats. He denies any new aches or pains. He has not noted any adenopathy. No shortness of breath or cough. He denies any changes in his urinary habits. His mood has been somewhat low but he has not had any suicidal ideation. He and his have been having some stress due to getting their house ready to sell. He denies any other changes in his health. - Patient Self-Reported Symptoms SR Constitution: Fatigue/Malaise SR ears, nose, mouth, throat issues: Ears ringing SR respiratory issues: Cough, Shortness of breath SR Cardiovascular issues: Palpitations SR Skin issues: Dry skin, Blistering or peeling SR Gastrointestinal issues: Nausea SR Genitourinary issues: Frequent urination SR Musculoskeletal issues: Joint pain or swelling SR Neuro issues: Headache, Lightheaded/dizzy, Difficulty balancing SR Endocrine issues: Cold intolerance, Heat intolerance, Excessive thirst, Excessive urination, Hot flashes Home Medications and Allergies Home Medications Medication Instructions Recorded Confirmed Type [CANNIBUS OIL] #0 06/01/17 History Zoladex #0 06/27/17 History lorazepam [Ativan] 0.5 mg PO QD-BID PRN 07/25/18 04/29/19 History nitroglycerin 0.4 mg SUBLINGUAL Q5-15M PRN 07/25/18 04/29/19 History sertraline [Zoloft] 25 mg PO DAILY 02/12/19 04/29/19 History enzalutamide [Xtandi] 160 mg PO DAILY #120 cap 03/18/19 04/29/19 Rx ondansetron 8 mg PO Q8H 30 Days #30 tab 03/18/19 04/29/19 Rx Allergies Allergy/AdvReac Type Severity Reaction Status Date / Time oxycodone [From PERCOCET] Allergy Severe coma, Verified 06/11/18 15:16 epinephrine [EPINEPHRINE] AdvReac Intermediate Verified 06/11/18 15:16 shellfish derived AdvReac Intermediate Verified 06/11/18 15:16 [SHELLFISH DERIVED] nuts Allergy Unknown Uncoded 11/07/17 12:43 eggs AdvReac Severe unknown Uncoded 06/11/18 15:16 Exam Vital signs: Vital Signs Temp Pulse Resp BP Pulse Ox 04/29/19 13:27 98.6 F 84 18 168/96 H 98 Intake and Output 04/28/19 04/29/19 04/29/19 23:59 07:59 15:59 Other: Weight 127 kg Patient Weight 04/29/19 23:59 Weight 127 kg - Constitutional positive no acute distress, positive average body habitus - Routine HEENT Exam Head: Present: normocephalic, atraumatic Eye: Present: EOMI, PERRL. Absent: conjunctival icterus, scleral injection ENT: Present: mucous membranes moist, oropharynx clear - Routine Neck Exam Present: supple. Absent: lymphadenopathy, thyromegaly - Routine Respiratory Exam Present: Clear to auscultation bilaterally. Absent: rales, wheezes - Routine Cardiovascular Exam Present: RRR, S1, S2. Absent: murmur - Routine Abdominal Exam Present: soft, normoactive bowel sounds. Absent: tenderness, organomegaly, mass - Routine Extremities Exam Absent: cyanosis, clubbing, edema - Routine Back/Spine Exam Back/Spine: Absent: vertebral tenderness - Routine Skin Exam Present: intact. Absent: petechiae, rash - Routine Neurological Exam Present: alert, oriented X3 - Routine Psychiatric Exam Present: normal affect, normal thought process Results - Labs Laboratory Last Values WBC 9.2 X10^3/uL (4.5-11.0) 04/16/19 10:05 RBC 4.73 X10^6/uL (4.5-5.9) 04/16/19 10:05 Hgb 12.9 g/dL (13.5-17.5) L 04/16/19 10:05 Hct 37.9 % (41-53) L 04/16/19 10:05 MCV 80.2 fL (80-100) 04/16/19 10:05 MCH 27.3 PG (26-34) 04/16/19 10:05 MCHC 34.0 % (30-36) 04/16/19 10:05 RDW 15.2 % (11.6-14.8) H 04/16/19 10:05 Plt Count 180 X10^3/uL (150-400) 04/16/19 10:05 Neut % (Auto) 71.5 % (50-75) 04/16/19 10:05 Lymph % (Auto) 17.6 % (25-40) L 04/16/19 10:05 [place] % (Auto) 8.3 % (3-14) 04/16/19 10:05 Eos % (Auto) 2.4 % (2-4) 04/16/19 10:05 Baso % (Auto) 0.2 % (0-2) 04/16/19 10:05 Neut # (Auto) 6600 /uL (1055-3250) 04/16/19 10:05 Lymph # (Auto) 1600 /uL (6661-0654) 04/16/19 10:05 [place] # (Auto) 800 /uL (0-900) 04/16/19 10:05 Eos # (Auto) 200 /uL (0-450) 04/16/19 10:05 Baso # (Auto) 0 /uL (0-100) 04/16/19 10:05 Sodium 138 mmol/L (137-145) 04/16/19 10:05 Potassium 3.7 mmol/L (3.4-5.1) 04/16/19 10:05 Chloride 100 mmol/L (98-107) 04/16/19 10:05 Carbon Dioxide 27 mmol/L (22-32) 04/16/19 10:05 BUN 15 mg/dL (9-20) 04/16/19 10:05 Creatinine 0.60 mg/dL (0.66-1.25) L 04/16/19 10:05 Estimated GFR > 60.0 mL/min (>60) 04/16/19 10:05 BUN/Creatinine Ratio 25.0 (6-22) H 04/16/19 10:05 Glucose 102 mg/dL (80-110) 04/16/19 10:05 Calcium 9.4 mg/dL (8.4-10.2) 04/16/19 10:05 Iron 60 ug/dL (49-181) 03/21/18 10:13 TIBC 342 ug/dL (261-462) 03/21/18 10:13 % Saturation 18 % (20-50) L 03/21/18 10:13 Transferrin 274 mg/dL (206-381) 03/21/18 10:13 Total Bilirubin 0.6 mg/dL (0.2-1.3) 04/16/19 10:05 AST 36 IU/L (17-59) 04/16/19 10:05 ALT 36 IU/L (21-72) 04/16/19 10:05 Alkaline Phosphatase 100 U/L (38-126) 04/16/19 10:05 Total Protein 7.8 g/dL (6.3-8.2) 04/16/19 10:05 Albumin 4.4 g/dL (3.5-5.0) 04/16/19 10:05 Globulin 3.4 g/dL (1.7-4.1) 04/16/19 10:05 Albumin/Globulin Ratio 1.3 (1.0-2.8) 04/16/19 10:05 Prostate Specific Ag 0.787 ng/mL (0.10-4.00) 04/16/19 10:05 Vitamin B12 489 pg/mL (239-931) 03/21/18 10:13 TSH 3.80 uIU/mL (0.47-4.68) 03/21/18 10:13 Testosterone Level 21.9 ng/dL (71.8-623) L 08/09/18 14:14 - Imaging CT scan - abdomen: report reviewed CT scan - chest: report reviewed CT scan - pelvis: report reviewed (CT scan and bone scan showed evidence of degenerative change in the spine and previous surgical changes to the liver but no evidence of active or progressive metastatic disease.) Assessment and Plan (1) Prostate cancer Non metastatic castrate resistant prostate adenocarcinoma. He is tolerating his Xtandi with some difficulty but is willing to continue on had full dose. Despite this, his PSA has increased slightly. It appears to have a doubling time of about 3 months. Today, we discussed the options of continuing at full dose therapy, trying a dose reduction of the Xtandi to see of side effects would be lasts or changing to an alternative therapy. Unfortunately, alternative therapies would be either Zytiga prednisone or chemotherapy. Given that he does not have evidence of metastatic disease, it may be a bit premature for chemotherapy. Older hormone therapy agents I think would likely have more side effects and a lower likelihood of controlling his disease. He is willing to continue with full dose for now. He will return to clinic in about a month or so for follow-up. He is due for goserelin injection will trying get that scheduled for tomorrow. 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 At this point he remains non symptomatic, is not on therapy, and there is no evidence of radiographic progression. Continue monitoring for liver metastases and mesenteric lymph nodes on future CT scans
[2019-04-30 11:20] VITALS: BP 180/93; PULSE 69; RESP 16; TEMP 37.3; O2SAT 95
--- NOTE | 2019-04-30 11:37 | PC.NURSE ---
Pt presented with elevated BP, reported that his primary care physician recently advised him to stop BP medications. patient was asymtomatic and was educated on when to seek emergent medical in regards to cardiac events, Pt verbalized understanding. Pt reported a f/u apt with primary care provider within one weeks time. Dr. Deleon made aware, no new orders, and confirmed continuing with med administration.
[2019-04-30] MEDS: [UNRECOGNIZED DRUG - OTHER] SUBCUT (11:40)
--- NOTE | 2019-04-30 12:59 | ONC.SCHED ---
Mailed patient his schedule
[2019-05-28 13:21] VITALS: BP 186/106; PULSE 65; RESP 18; TEMP 35.7; O2SAT 95
--- NOTE | 2019-05-28 13:32 | ONC.PN ---
PN -Subjective Interval history: Diagnosis: castrate resistant non metastatic prostate cancer. He also has a history of a neuroendocrine tumor Previous treatment: 1. Zoladex beginning in October 2015 until April 2016 2. Radiation therapy to the prostate from November through January 2016 complicated by rectal ulcers requiring hyperbaric oxygen. 3. Resumption of Zoladex with Casodex beginning of March 2017. Casodex was stopped due to suicidal ideation 4. Apalutamide beginning in March 2018. 5. Xtandi starting in February 2019. 6. For his neuroendocrine tumor, he underwent hepatic artery chemo infusion and chemo embolization about 20 years ago. Interval history: The patient is a 64-year-old man who is seen today for follow-up of PSA recurrence of prostate cancer. Since his last visit here, he has continued on Xtandi. He notes that he has had some increasing fatigue and generalized weakness. He notes that he feels pretty good for about for 5 days and then has about 4 5 days worries feeling much worse. He denies any new aches or pains though. No fevers chills or sweats. His appetite has been low but stable. He has not noticed any edema. No diarrhea. No adenopathy. He denies any other changes in his health. - Patient Self-Reported Symptoms SR Constitution: Fever, Fatigue/Malaise, Night Sweats SR ears, nose, mouth, throat issues: Ears ringing, Cough SR respiratory issues: Cough, Shortness of breath SR Cardiovascular issues: Palpitations, Shortness of breath with activity or lying flat, Dizzy/lightheaded SR Skin issues: Dry skin, Blistering or peeling SR Gastrointestinal issues: Nausea SR Genitourinary issues: Frequent urination SR Musculoskeletal issues: Joint pain or swelling SR Neuro issues: Headache, Lightheaded/dizzy, Difficulty balancing SR Endocrine issues: Cold intolerance, Heat intolerance, Excessive thirst, Excessive urination, Hot flashes Home Medications and Allergies Home Medications Medication Instructions Recorded Confirmed Type [CANNIBUS OIL] #0 06/01/17 History Zoladex #0 06/27/17 History lorazepam [Ativan] 0.5 mg PO QD-BID PRN 07/25/18 04/29/19 History nitroglycerin 0.4 mg SUBLINGUAL Q5-15M PRN 07/25/18 04/29/19 History sertraline [Zoloft] 50 mg PO DAILY 02/12/19 05/28/19 History enzalutamide [Xtandi] 160 mg PO DAILY #120 cap 03/18/19 04/29/19 Rx ondansetron 8 mg PO Q8H 30 Days #30 tab 03/18/19 04/29/19 Rx abiraterone [Zytiga] 1,000 mg PO DAILY 30 Days #120 tab 05/28/19 Rx prednisone 5 mg PO BID 30 Days #60 tab 05/28/19 Rx Allergies Allergy/AdvReac Type Severity Reaction Status Date / Time oxycodone [From PERCOCET] Allergy Severe coma, Verified 06/11/18 15:16 epinephrine [EPINEPHRINE] AdvReac Intermediate Verified 06/11/18 15:16 shellfish derived AdvReac Intermediate Verified 06/11/18 15:16 [SHELLFISH DERIVED] nuts Allergy Unknown Uncoded 11/07/17 12:43 eggs AdvReac Severe unknown Uncoded 06/11/18 15:16 Exam Vital signs: Vital Signs Temp Pulse Resp BP Pulse Ox 05/28/19 13:21 96.2 F L 65 18 186/106 H 95 Intake and Output 05/27/19 05/28/19 05/28/19 23:59 07:59 15:59 Other: Weight 126.2 kg Patient Weight 05/28/19 23:59 Weight 126.2 kg - Constitutional positive no acute distress, positive average body habitus - Routine HEENT Exam Head: Present: normocephalic, atraumatic Eye: Present: EOMI, PERRL. Absent: conjunctival icterus, scleral injection ENT: Present: mucous membranes moist, oropharynx clear - Routine Neck Exam Present: supple. Absent: lymphadenopathy, thyromegaly - Routine Respiratory Exam Present: Clear to auscultation bilaterally. Absent: rales, wheezes - Routine Cardiovascular Exam Present: RRR, S1, S2. Absent: murmur - Routine Abdominal Exam Present: soft, normoactive bowel sounds. Absent: tenderness, organomegaly, mass - Routine Extremities Exam Absent: cyanosis, clubbing, edema - Routine Back/Spine Exam Back/Spine: Absent: vertebral tenderness - Routine Neurological Exam Present: alert, oriented X3 - Routine Psychiatric Exam Present: normal affect, normal thought process Results - Labs Laboratory Last Values WBC 9.2 X10^3/uL (4.5-11.0) 09/18/19 10:05 RBC 4.73 X10^6/uL (4.5-5.9) 04/16/19 10:05 Hgb 12.9 g/dL (13.5-17.5) L 04/16/19 10:05 Hct 37.9 % (41-53) L 04/16/19 10:05 MCV 80.2 fL (80-100) 04/16/19 10:05 MCH 27.3 PG (26-34) 04/16/19 10:05 MCHC 34.0 % (30-36) 04/16/19 10:05 RDW 15.2 % (11.6-14.8) H 04/16/19 10:05 Plt Count 180 X10^3/uL (150-400) 04/16/19 10:05 Neut % (Auto) 71.5 % (50-75) 04/16/19 10:05 Lymph % (Auto) 17.6 % (25-40) L 04/16/19 10:05 [place] % (Auto) 8.3 % (3-14) 04/16/19 10:05 Eos % (Auto) 2.4 % (2-4) 04/16/19 10:05 Baso % (Auto) 0.2 % (0-2) 04/16/19 10:05 Neut # (Auto) 6600 /uL (2559-0776) 04/16/19 10:05 Lymph # (Auto) 1600 /uL (2232-6868) 04/16/19 10:05 [place] # (Auto) 800 /uL (0-900) 04/16/19 10:05 Eos # (Auto) 200 /uL (0-450) 04/16/19 10:05 Baso # (Auto) 0 /uL (0-100) 04/16/19 10:05 Sodium 138 mmol/L (137-145) 04/16/19 10:05 Potassium 3.7 mmol/L (3.4-5.1) 04/16/19 10:05 Chloride 100 mmol/L (98-107) 04/16/19 10:05 Carbon Dioxide 27 mmol/L (22-32) 04/16/19 10:05 BUN 15 mg/dL (9-20) 04/16/19 10:05 Creatinine 0.60 mg/dL (0.66-1.25) L 04/16/19 10:05 Estimated GFR > 60.0 mL/min (>60) 04/16/19 10:05 BUN/Creatinine Ratio 25.0 (6-22) H 04/16/19 10:05 Glucose 102 mg/dL (80-110) 04/16/19 10:05 Calcium 9.4 mg/dL (8.4-10.2) 04/16/19 10:05 Iron 60 ug/dL (49-181) 03/21/18 10:13 TIBC 342 ug/dL (261-462) 03/21/18 10:13 % Saturation 18 % (20-50) L 03/21/18 10:13 Transferrin 274 mg/dL (206-381) 03/21/18 10:13 Total Bilirubin 0.6 mg/dL (0.2-1.3) 04/16/19 10:05 AST 36 IU/L (17-59) 04/16/19 10:05 ALT 36 IU/L (21-72) 04/16/19 10:05 Alkaline Phosphatase 100 U/L (38-126) 04/16/19 10:05 Total Protein 7.8 g/dL (6.3-8.2) 04/16/19 10:05 Albumin 4.4 g/dL (3.5-5.0) 04/16/19 10:05 Globulin 3.4 g/dL (1.7-4.1) 04/16/19 10:05 Albumin/Globulin Ratio 1.3 (1.0-2.8) 04/16/19 10:05 Prostate Specific Ag 0.787 ng/mL (0.10-4.00) 04/16/19 10:05 Vitamin B12 489 pg/mL (239-931) 03/21/18 10:13 TSH 3.80 uIU/mL (0.47-4.68) 03/21/18 10:13 Testosterone Level 21.9 ng/dL (71.8-623) L 08/09/18 14:14 Assessment and Plan (1) Prostate cancer Non metastatic castrate resistant prostate adenocarcinoma. He is tolerating his Xtandi with increasing difficulty mostly in the form of fatigue. Despite this, his PSA has been steadily rising with nearly 50% increase over the last month. He remains asymptomatic from his cancer at this point. Recent scan did not show any evidence of metastatic disease. At this point, I think our options are to switch to Zytiga and prednisone or to consider chemotherapy. Side effects of Zytiga including fatigue, fluid retention, diarrhea, liver function abnormalities and a low risk for seizures were reviewed. He is willing to try it. He will get started on a 1000 mg daily along with prednisone 5 mg twice a day. He will return to clinic in about a month for follow-up. 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 At this point he remains non symptomatic, is not on therapy, and there is no evidence of radiographic progression. Continue monitoring for liver metastases and mesenteric lymph nodes on future CT scans
--- NOTE | 2019-05-28 14:04 | PC.NURSE ---
HIGH BLOOD PRESSURE AT FU VISIT: Per Dr. Deleon patient may respond to d/c of xtandi with lower blood pressure. Patient also told that he has BP meds at home which hea has not been taking. Dr. Deleon stated that patient would be measuring his blood pressure at home and will seek medical attention if it is still remaining high.
--- NOTE | 2019-05-29 14:39 | ONC.MSW ---
Description: Co-Pay Assistance for Zytiga Activity: Faxed in application forms to [employer] patient assistance. Will contact pt once they have made a determination.
--- NOTE | 2019-06-04 10:12 | ONC.MSW ---
Description: [facility] Delivery Coordination Activity: Faxed pt's presription to the [facility], [facility]. They will call pt to arrange delivery. Pt has qualified for co-pay assistance through the [employer].
[2019-06-25 12:07] VITALS: BP 191/117; PULSE 73; RESP 16; TEMP 37.2; O2SAT 94
--- NOTE | 2019-06-25 12:10 | ONC.PN ---
PN -Subjective Interval history: Diagnosis: castrate resistant non metastatic prostate cancer. He also has a history of a neuroendocrine tumor Previous treatment: 1. Zoladex beginning in October 2015 until April 2016 2. Radiation therapy to the prostate from November through January 2016 complicated by rectal ulcers requiring hyperbaric oxygen. 3. Resumption of Zoladex with Casodex beginning of March 2017. Casodex was stopped due to suicidal ideation 4. Apalutamide beginning in March 2018. 5. Xtandi starting in February 2019 until April 2019 6. Zytiga and prednisone beginning about 3 weeks ago 6. For his neuroendocrine tumor, he underwent hepatic artery chemo infusion and chemo embolization about 20 years ago. Interval history: The patient is a 64-year-old man who is seen today for follow-up of PSA recurrence of prostate cancer. Since his last visit here, he has started on Zytiga and prednisone. He has been tolerating it fairly well thus far. He has noted some fatigue. Overall, he feels much better than he did while taking the Xtandi. He denies any new aches or pains. No fevers or chills. He is not having any hot flashes. His appetite has been stable. He has not noticed any edema. No diarrhea. He has had some increased unsteadiness in his gait and has had a couple of falls over the last few weeks. He denies any other changes in his health. - Patient Self-Reported Symptoms SR Constitution: Fever, Fatigue/Malaise, Night Sweats SR ears, nose, mouth, throat issues: Ears ringing, Cough SR respiratory issues: Cough, Shortness of breath SR Cardiovascular issues: Palpitations, Shortness of breath with activity or lying flat, Dizzy/lightheaded SR Skin issues: Dry skin, Blistering or peeling SR Gastrointestinal issues: Nausea SR Genitourinary issues: Frequent urination SR Musculoskeletal issues: Joint pain or swelling SR Neuro issues: Headache, Lightheaded/dizzy, Difficulty balancing SR Endocrine issues: Cold intolerance, Heat intolerance, Excessive thirst, Excessive urination, Hot flashes Home Medications and Allergies Home Medications Medication Instructions Recorded Confirmed Type [CANNIBUS OIL] #0 06/01/17 History Zoladex #0 06/27/17 History lorazepam [Ativan] 0.5 mg PO QD-BID PRN 07/25/18 04/29/19 History nitroglycerin 0.4 mg SUBLINGUAL Q5-15M PRN 07/25/18 04/29/19 History sertraline [Zoloft] 50 mg PO DAILY 02/12/19 05/28/19 History enzalutamide [Xtandi] 160 mg PO DAILY #120 cap 03/18/19 04/29/19 Rx ondansetron 8 mg PO Q8H 30 Days #30 tab 03/18/19 04/29/19 Rx abiraterone [Zytiga] 1,000 mg PO DAILY 30 Days #120 tab 05/28/19 06/25/19 Rx prednisone 5 mg PO BID 30 Days #60 tab 05/28/19 Rx Allergies Allergy/AdvReac Type Severity Reaction Status Date / Time oxycodone [From PERCOCET] Allergy Severe coma, Verified 06/11/18 15:16 epinephrine [EPINEPHRINE] AdvReac Intermediate Verified 06/11/18 15:16 shellfish derived AdvReac Intermediate Verified 06/11/18 15:16 [SHELLFISH DERIVED] nuts Allergy Unknown Uncoded 11/07/17 12:43 eggs AdvReac Severe unknown Uncoded 06/11/18 15:16 Exam Vital signs: Vital Signs Temp Pulse Resp BP Pulse Ox 06/25/19 12:07 98.9 F 73 16 191/117 H 94 Intake and Output 06/24/19 06/25/19 06/25/19 23:59 07:59 15:59 Other: Weight 123.1 kg Patient Weight 06/25/19 23:59 Weight 123.1 kg - Constitutional positive no acute distress, positive average body habitus - Routine HEENT Exam Head: Present: normocephalic, atraumatic Eye: Present: EOMI, PERRL. Absent: conjunctival icterus, scleral injection ENT: Present: mucous membranes moist, oropharynx clear - Routine Neck Exam Present: supple. Absent: lymphadenopathy, thyromegaly - Routine Chest/Breast/Axilla Exam Axillae: Absent: lymphadenopathy - Routine Respiratory Exam Present: Clear to auscultation bilaterally. Absent: rales, wheezes - Routine Cardiovascular Exam Present: RRR, S1, S2. Absent: murmur - Routine Abdominal Exam Present: soft, normoactive bowel sounds. Absent: tenderness, organomegaly, mass - Routine Extremities Exam Absent: cyanosis, clubbing, edema - Routine Back/Spine Exam Back/Spine: Absent: vertebral tenderness - Routine Skin Exam Present: intact. Absent: petechiae, rash - Routine Neurological Exam Present: alert, oriented X3 - Routine Psychiatric Exam Present: normal affect, normal thought process Results - Labs Laboratory Last Values WBC 9.2 X10^3/uL (4.5-11.0) 04/16/19 10:05 RBC 4.73 X10^6/uL (4.5-5.9) 04/16/19 10:05 Hgb 12.9 g/dL (13.5-17.5) L 04/16/19 10:05 Hct 37.9 % (41-53) L 04/16/19 10:05 MCV 80.2 fL (80-100) 04/16/19 10:05 MCH 27.3 PG (26-34) 04/16/19 10:05 MCHC 34.0 % (30-36) 04/16/19 10:05 RDW 15.2 % (11.6-14.8) H 04/16/19 10:05 Plt Count 180 X10^3/uL (150-400) 04/16/19 10:05 Neut % (Auto) 71.5 % (50-75) 04/16/19 10:05 Lymph % (Auto) 17.6 % (25-40) L 04/16/19 10:05 [place] % (Auto) 8.3 % (3-14) 04/16/19 10:05 Eos % (Auto) 2.4 % (2-4) 04/16/19 10:05 Baso % (Auto) 0.2 % (0-2) 04/16/19 10:05 Neut # (Auto) 6600 /uL (9311-1143) 04/16/19 10:05 Lymph # (Auto) 1600 /uL (7125-0002) 04/16/19 10:05 [place] # (Auto) 800 /uL (0-900) 04/16/19 10:05 Eos # (Auto) 200 /uL (0-450) 04/16/19 10:05 Baso # (Auto) 0 /uL (0-100) 04/16/19 10:05 Sodium 138 mmol/L (137-145) 04/16/19 10:05 Potassium 3.7 mmol/L (3.4-5.1) 04/16/19 10:05 Chloride 100 mmol/L (98-107) 04/16/19 10:05 Carbon Dioxide 27 mmol/L (22-32) 04/16/19 10:05 BUN 15 mg/dL (9-20) 04/16/19 10:05 Creatinine 0.60 mg/dL (0.66-1.25) L 04/16/19 10:05 Estimated GFR > 60.0 mL/min (>60) 04/16/19 10:05 BUN/Creatinine Ratio 25.0 (6-22) H 04/16/19 10:05 Glucose 102 mg/dL (80-110) 04/16/19 10:05 Calcium 9.4 mg/dL (8.4-10.2) 04/16/19 10:05 Iron 60 ug/dL (49-181) 03/21/18 10:13 TIBC 342 ug/dL (261-462) 03/21/18 10:13 % Saturation 18 % (20-50) L 03/21/18 10:13 Transferrin 274 mg/dL (206-381) 03/21/18 10:13 Total Bilirubin 0.6 mg/dL (0.2-1.3) 04/16/19 10:05 AST 36 IU/L (17-59) 04/16/19 10:05 ALT 36 IU/L (21-72) 04/16/19 10:05 Alkaline Phosphatase 100 U/L (38-126) 04/16/19 10:05 Total Protein 7.8 g/dL (6.3-8.2) 04/16/19 10:05 Albumin 4.4 g/dL (3.5-5.0) 04/16/19 10:05 Globulin 3.4 g/dL (1.7-4.1) 04/16/19 10:05 Albumin/Globulin Ratio 1.3 (1.0-2.8) 04/16/19 10:05 Prostate Specific Ag 0.787 ng/mL (0.10-4.00) 04/16/19 10:05 Vitamin B12 489 pg/mL (239-931) 03/21/18 10:13 TSH 3.80 uIU/mL (0.47-4.68) 03/21/18 10:13 Testosterone Level 21.9 ng/dL (71.8-623) L 08/09/18 14:14 Assessment and Plan (1) Prostate cancer Non metastatic castrate resistant prostate adenocarcinoma. His side effects of largely resolved since stopping the Xtandi and switching to Zytiga. He is having some unsteadiness in his gait. Overall, he finds it manageable. His PSA has been essentially unchanged. He will return to clinic in about 1 month for follow-up. 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 At this point he remains non symptomatic, is not on therapy, and there is no evidence of radiographic progression. Continue monitoring for liver metastases and mesenteric lymph nodes on future CT scans
--- NOTE | 2019-06-25 15:01 | ONC.SCHED ---
Left msg. for patient to call back regarding scheduling.
[2019-07-25 14:16] LABS: Add Manual Diff / Slide Review NO; Basophils Absolute Auto 0 /uL (0-100); Basophils Percent Auto 0.2 % (0-2); Eosinophils Absolute Auto 100 /uL (0-450); Eosinophils Percent Auto 1.4 % (2-4); Hematocrit 38.4 % (41-53); Hemoglobin 13.1 g/dL (13.5-17.5); Lymphocytes Absolute Auto 1100 /uL (1100-4500); Mean Corpuscular Hemoglobin 27.1 PG (26-34); Mean Corpuscular Volume 79.5 fL (80-100); Monocytes Absolute Auto 700 /uL (0-900); Monocytes Percent Auto 7.7 % (3-14); Neutrophils Absolute Auto 7200 /uL (1500-7000); Neutrophils Percent Auto 78.7 % (50-75); Platelet Count 154 X10^3/uL (150-400); Red Blood Cell Count 4.83 X10^6/uL (4.5-5.9); White Blood Cell Count 9.1 X10^3/uL (4.5-11.0)
[2019-07-25 14:26] LABS: Alanine Aminotransferase 23 IU/L (<50); Albumin 4.1 g/dL (3.5-5.0); Albumin Globulin Ratio 1.3 (1.0-2.8); Alkaline Phosphatase 141 U/L (38-126); Aspartate Aminotransferase 27 IU/L (17-59); BUN Creatinine Ratio 18.8 (6-22); Bilirubin Total 0.5 mg/dL (0.2-1.3); Blood Urea Nitrogen 15 mg/dL (9-20); Calcium 9.2 mg/dL (8.4-10.2); Carbon Dioxide 30 mmol/L (22-32); Chloride 102 mmol/L (98-107); Estimated Glomerular Filt Rate > 60.0 mL/min (>60); Globulin 3.2 g/dL (1.7-4.1); Glucose 130 mg/dL (80-110); HEMOLYSIS < 15 (0-50); Potassium 3.3 mmol/L (3.4-5.1); Sodium 140 mmol/L (137-145); Total Protein 7.3 g/dL (6.3-8.2)
[2019-07-25 14:56] LABS: Prostate Specific Antigen 1.48 ng/mL (0.10-4.00)
[2019-07-29 09:45] VITALS: BP 144/85; PULSE 82; RESP 18; TEMP 36.9; O2SAT 97
--- NOTE | 2019-07-29 10:08 | P.PNONC_ITS ---
PN -Subjective Interval history: Diagnosis: castrate resistant non metastatic prostate cancer. He also has a history of a neuroendocrine tumor Previous treatment: 1. Zoladex beginning in October 2015 until April 2016 2. Radiation therapy to the prostate from November through January 2016 complicated by rectal ulcers requiring hyperbaric oxygen. 3. Resumption of Zoladex with Casodex beginning of March 2017. Casodex was stopped due to suicidal ideation 4. Apalutamide beginning in March 2018. 5. Xtandi starting in February 2019 until April 2019 6. Zytiga and prednisone beginning April 2019 6. For his neuroendocrine tumor, he underwent hepatic artery chemo infusion and chemo embolization about 20 years ago. Interval history: The patient is a 64-year-old man who is seen today for follow-up of PSA recurrence of prostate cancer. Since his last visit here, he has continued on Zytiga and prednisone. He has been tolerating it fairly well thus far. He feels like his strength and energy level have improved somewhat. He is not taking as many naps as he had previously. He has not been bothered by hot flashes. He denies any new aches or pains. No fevers or chills. He did have 1 episode of nausea and vomiting. There is also some diarrhea. He has not noticed any lower extremity edema. No skin rash. He has not noticed any adenopathy. He denies any other changes in his health. - Patient Self-Reported Symptoms SR Constitution: Fatigue/Malaise, Night Sweats SR ears, nose, mouth, throat issues: Ears ringing, Cough SR respiratory issues: Shortness of breath SR Cardiovascular issues: Dizzy/lightheaded SR Skin issues: Dry skin, Blistering or peeling SR Gastrointestinal issues: Nausea, Vomiting, Diarrhea, Constipation SR Genitourinary issues: Frequent urination SR Musculoskeletal issues: Muscle weakness, Difficulty walking SR Neuro issues: Lightheaded/dizzy, Difficulty balancing SR Endocrine issues: Excessive urination, Hot flashes Home Medications and Allergies Home Medications Medication Instructions Recorded Confirmed Type [CANNIBUS OIL] #0 06/01/17 History Zoladex #0 06/27/17 History lorazepam [Ativan] 0.5 mg PO QD-BID PRN 07/25/18 07/29/19 History nitroglycerin 0.4 mg SUBLINGUAL Q5-15M PRN 07/25/18 07/29/19 History sertraline [Zoloft] 50 mg PO DAILY 02/12/19 07/29/19 History ondansetron 8 mg PO Q8H 30 Days #30 tab 03/18/19 07/29/19 Rx abiraterone [Zytiga] 1,000 mg PO DAILY 30 Days #120 tab 05/28/19 07/29/19 Rx prednisone 5 mg PO BID 30 Days #60 tab 05/28/19 07/29/19 Rx Allergies Allergy/AdvReac Type Severity Reaction Status Date / Time oxycodone [From PERCOCET] Allergy Severe coma, Verified 06/11/18 15:16 epinephrine [EPINEPHRINE] AdvReac Intermediate Verified 06/11/18 15:16 shellfish derived AdvReac Intermediate Verified 06/11/18 15:16 [SHELLFISH DERIVED] nuts Allergy Unknown Uncoded 11/07/17 12:43 eggs AdvReac Severe unknown Uncoded 06/11/18 15:16 Exam Vital signs: Vital Signs Temp Pulse Resp BP Pulse Ox 07/29/19 09:45 98.4 F 82 18 144/85 H 97 Intake and Output 07/28/19 07/29/19 07/29/19 23:59 07:59 15:59 Other: Weight 123.4 kg Patient Weight 07/29/19 23:59 Weight 123.4 kg - Constitutional positive no acute distress, positive average body habitus - Routine HEENT Exam Head: Present: normocephalic, atraumatic Eye: Present: EOMI, PERRL. Absent: conjunctival icterus, scleral injection ENT: Present: mucous membranes moist, oropharynx clear - Routine Neck Exam Present: supple. Absent: lymphadenopathy, thyromegaly - Routine Respiratory Exam Present: Clear to auscultation bilaterally. Absent: rales, wheezes - Routine Cardiovascular Exam Present: RRR, S1, S2. Absent: murmur - Routine Abdominal Exam Present: soft, normoactive bowel sounds. Absent: tenderness, organomegaly, mass - Routine Extremities Exam Absent: cyanosis, clubbing, edema - Routine Back/Spine Exam Back/Spine: Absent: paraspinal tenderness, vertebral tenderness - Routine Skin Exam Present: intact. Absent: petechiae, rash - Routine Neurological Exam Present: alert, oriented X3 - Routine Psychiatric Exam Present: normal affect, normal thought process Results - Labs Laboratory Last Values WBC 9.1 X10^3/uL (4.5-11.0) 07/25/19 14:05 RBC 4.83 X10^6/uL (4.5-5.9) 07/25/19 14:05 Hgb 13.1 g/dL (13.5-17.5) L 07/25/19 14:05 Hct 38.4 % (41-53) L 07/25/19 14:05 MCV 79.5 fL (80-100) L 07/25/19 14:05 MCH 27.1 PG (26-34) 07/25/19 14:05 MCHC 34.0 % (30-36) 07/25/19 14:05 RDW 15.0 % (11.6-14.8) H 07/25/19 14:05 Plt Count 154 X10^3/uL (150-400) 07/25/19 14:05 Neut % (Auto) 78.7 % (50-75) H 07/25/19 14:05 Lymph % (Auto) 12.0 % (25-40) L 07/25/19 14:05 Randolph % (Auto) 7.7 % (3-14) 07/25/19 14:05 Eos % (Auto) 1.4 % (2-4) L 07/25/19 14:05 Baso % (Auto) 0.2 % (0-2) 07/25/19 14:05 Neut # (Auto) 7200 /uL (5301-8718) H 07/25/19 14:05 Lymph # (Auto) 1100 /uL (1291-1734) 07/25/19 14:05 Randolph # (Auto) 700 /uL (0-900) 07/25/19 14:05 Eos # (Auto) 100 /uL (0-450) 07/25/19 14:05 Baso # (Auto) 0 /uL (0-100) 07/25/19 14:05 Sodium 140 mmol/L (137-145) 07/25/19 14:05 Potassium 3.3 mmol/L (3.4-5.1) L 07/25/19 14:05 Chloride 102 mmol/L (98-107) 07/25/19 14:05 Carbon Dioxide 30 mmol/L (22-32) 07/25/19 14:05 BUN 15 mg/dL (9-20) 07/25/19 14:05 Creatinine 0.80 mg/dL (0.66-1.25) 07/25/19 14:05 Estimated GFR > 60.0 mL/min (>60) 07/25/19 14:05 BUN/Creatinine Ratio 18.8 (6-22) 07/25/19 14:05 Glucose 130 mg/dL (80-110) H 07/25/19 14:05 Calcium 9.2 mg/dL (8.4-10.2) 07/25/19 14:05 Iron 60 ug/dL (49-181) 03/21/18 10:13 TIBC 342 ug/dL (261-462) 03/21/18 10:13 % Saturation 18 % (20-50) L 03/21/18 10:13 Transferrin 274 mg/dL (206-381) 03/21/18 10:13 Total Bilirubin 0.5 mg/dL (0.2-1.3) 07/25/19 14:05 AST 27 IU/L (17-59) 07/25/19 14:05 ALT 23 IU/L (<50) 07/25/19 14:05 Alkaline Phosphatase 141 U/L (38-126) H 07/25/19 14:05 Total Protein 7.3 g/dL (6.3-8.2) 07/25/19 14:05 Albumin 4.1 g/dL (3.5-5.0) 07/25/19 14:05 Globulin 3.2 g/dL (1.7-4.1) 07/25/19 14:05 Albumin/Globulin Ratio 1.3 (1.0-2.8) 07/25/19 14:05 Prostate Specific Ag 1.48 ng/mL (0.10-4.00) 07/25/19 14:05 Vitamin B12 489 pg/mL (239-931) 03/21/18 10:13 TSH 3.80 uIU/mL (0.47-4.68) 03/21/18 10:13 Testosterone Level 21.9 ng/dL (71.8-623) L 08/09/18 14:14 Assessment and Plan (1) Prostate cancer Non metastatic castrate resistant prostate adenocarcinoma. He is tolerating Zytiga and prednisone with minimal toxicity. He does not have any symptoms related to his cancer but his PSA has increased somewhat. He'll continue with his current regimen for now. He'll return to clinic in about a month for follow-up. If his PSA continues to increase, we might want to consider changing to a new hormone agent that's just recently been approved called darolutamide. It has shown an improvement in time to metastasis and has demonstrated a trend towards improvement in survival in patients with castrate resistant but non metastatic prostate cancer. He'll return to clinic in 1 month for follow-up. (2) Neuroendocrine carcinoma metastatic to liver This patient has longstanding, 20+ year history of metastatic well- differentiated NET to liver. At this point he remains non symptomatic, is not on therapy, and there is no evidence of radiographic progression. Continue monitoring for liver metastases and mesenteric lymph nodes on future CT scans
[2019-07-29] MEDS: [UNRECOGNIZED DRUG - OTHER] SUBCUT (10:47)
--- NOTE | 2019-07-31 09:32 | ONC.MSW ---
Description: T/C re: behavioral health packet Activity: Called Behavioral Health and requested that they send pt a new pt application packet, per pt's request.
[2019-08-15 15:29] LABS: Add Manual Diff / Slide Review NO; Basophils Absolute Auto 0 /uL (0-100); Basophils Percent Auto 0.5 % (0-2); Eosinophils Absolute Auto 100 /uL (0-450); Eosinophils Percent Auto 1.2 % (2-4); Hematocrit 39.7 % (41-53); Hemoglobin 13.1 g/dL (13.5-17.5); Lymphocytes Absolute Auto 1600 /uL (1100-4500); Mean Corpuscular Hemoglobin 26.6 PG (26-34); Mean Corpuscular Volume 80.6 fL (80-100); Monocytes Absolute Auto 800 /uL (0-900); Monocytes Percent Auto 7.8 % (3-14); Neutrophils Absolute Auto 7200 /uL (1500-7000); Neutrophils Percent Auto 74.5 % (50-75); Platelet Count 159 X10^3/uL (150-400); Red Blood Cell Count 4.92 X10^6/uL (4.5-5.9); Red Cell Distribution Width 15.3 % (11.6-14.8); White Blood Cell Count 9.7 X10^3/uL (4.5-11.0)
[2019-08-15 16:04] LABS: Alanine Aminotransferase 21 IU/L (<50); Albumin 4.1 g/dL (3.5-5.0); Albumin Globulin Ratio 1.3 (1.0-2.8); Alkaline Phosphatase 139 U/L (38-126); Aspartate Aminotransferase 23 IU/L (17-59); BUN Creatinine Ratio 23.8 (6-22); Bilirubin Total 0.4 mg/dL (0.2-1.3); Blood Urea Nitrogen 19 mg/dL (9-20); Calcium 9.5 mg/dL (8.4-10.2); Carbon Dioxide 32 mmol/L (22-32); Chloride 100 mmol/L (98-107); Estimated Glomerular Filt Rate > 60.0 mL/min (>60); Globulin 3.2 g/dL (1.7-4.1); Glucose 100 mg/dL (80-110); HEMOLYSIS < 15 (0-50); Potassium 3.7 mmol/L (3.4-5.1); Sodium 140 mmol/L (137-145); Total Protein 7.3 g/dL (6.3-8.2)
[2019-08-15 16:35] LABS: Prostate Specific Antigen 1.83 ng/mL (0.10-4.00)
[2019-08-20 13:27] VITALS: BP 157/83; PULSE 73; RESP 20; TEMP 37; O2SAT 98
--- NOTE | 2019-08-20 18:44 | ONC.PN ---
PN -Subjective Interval history: Diagnosis: 1. Remote history of metastatic well-differentiated neuroendocrine tumor. 2. Nonmetastatic M0 castrate resistant prostate adenocarcinoma Castrate resistant non metastatic prostate cancer. He also has a history of a neuroendocrine tumor Previous treatment: 1. Zoladex beginning in October 2015 until April 2016 2. Radiation therapy to the prostate from November through January 2016 complicated by rectal ulcers requiring hyperbaric oxygen. 3. Resumption of Zoladex with Casodex beginning of March 2017. Casodex was stopped due to suicidal ideation 4. Apalutamide beginning in March 2018. 5. Xtandi starting in February 2019 until April 2019 6. Zytiga and prednisone beginning April 2019 6. For his neuroendocrine tumor, he underwent hepatic artery chemo infusion and chemo embolization about 20 years ago. Interval history: José Miguel Carrillo is a 64-year-old gentleman with castrate resistant M0 prostate adenocarcinoma. He is currently on abiraterone/prednisone. He presents today for oncology follow-up. He has a remote history of metastatic well-differentiated neuroendocrine tumor. He was under care of Dr. Hussein at [facility] in [place]. He was treated with hepatic arterial chemoinfusion and chemoembolization with good response in liver metastases. He was on somatostatin analog therapy for a long time, eventually quit in 2014, and has had inactive disease. He has no current issues with NET. In 2014 while living in [place], PSA was found to be 48. TRUS prostate biopsy in 07/2015 at was positive for [place] 4 + 4 adenocarcinoma. He was treated with definitive EBRT (11/2015 - 01/2016), given concurrently with neoadjuvant/concurrent/adjuvant ADT (goserelin), although stopped adjuvant early. Later in 03/2017, he resumed complete androgen blockade with goserelin plus Casodex for rising PSA, 3.28. Later he stopped Casodex in 07/2017, added again in 12/2017, stopped again in 03/2018. He started apalutamide in 03/2018, later dose reduced for toxicities. That initially had a marked PSA response (maida 0.131 on 10/03/2018, from baseline 2.18 on 05/16/2018),, but then it started to rise. He tried Enzalutamide, 02/2019-04/2019, with no PSA response. He started abiraterone/prednisone in 04/2019, which he continues to take. Since start, PSA has gradually increased mildly, from 1.10 (05/22/2019) to currently 1.83 (08/15/2019). Most recent CT C/a/P with contrast and WB bone scan (04/16/2019) were negative for evidence of metastatic disease. There was stable increased uptake in the inferior right sternal border, and increased uptake in the lower C-spine, most likely degenerative. He is here for routine follow-up. Overall he tolerates abiraterone/prednisone well. He reports intermittent temporary skin rash. His main issue is subtle cognitive decline. His memory has definitely declined. He feels unable to stay focused on his thought process. He loses track. Previously when he was on anti androgen, he felt worse, was experiencing marked fatigue and had some falls. - Patient Self-Reported Symptoms SR Constitution: Fatigue/Malaise, Night Sweats SR ears, nose, mouth, throat issues: Ears ringing SR respiratory issues: Shortness of breath SR Cardiovascular issues: Dizzy/lightheaded SR Skin issues: Dry skin, Blistering or peeling SR Gastrointestinal issues: Poor or no appetite, Nausea, Vomiting, Diarrhea, Constipation SR Genitourinary issues: Frequent urination SR Musculoskeletal issues: Muscle weakness, Difficulty walking SR Neuro issues: Lightheaded/dizzy, Difficulty balancing SR Endocrine issues: Hot flashes - Additional ROS All systems PM: reviewed and no additional remarkable complaints except as stated Home Medications and Allergies Home Medications Medication Instructions Recorded Confirmed Type [CANNIBUS OIL] #0 06/01/17 History Zoladex #0 06/27/17 History lorazepam [Ativan] 0.5 mg PO QD-BID PRN 07/25/18 07/29/19 History nitroglycerin 0.4 mg SUBLINGUAL Q5-15M PRN 07/25/18 07/29/19 History sertraline [Zoloft] 50 mg PO DAILY 02/12/19 07/29/19 History ondansetron 8 mg PO Q8H 30 Days #30 tab 03/18/19 07/29/19 Rx abiraterone [Zytiga] 1,000 mg PO DAILY 30 Days #120 tab 05/28/19 07/29/19 Rx prednisone 5 mg PO BID 30 Days #60 tab 05/28/19 07/29/19 Rx Allergies Allergy/AdvReac Type Severity Reaction Status Date / Time oxycodone [From PERCOCET] Allergy Severe coma, Verified 06/11/18 15:16 epinephrine [EPINEPHRINE] AdvReac Intermediate Verified 06/11/18 15:16 shellfish derived AdvReac Intermediate Verified 06/11/18 15:16 [SHELLFISH DERIVED] nuts Allergy Unknown Uncoded 11/07/17 12:43 eggs AdvReac Severe unknown Uncoded 06/11/18 15:16 Exam Vital signs: Vital Signs Temp Pulse Resp BP Pulse Ox 08/20/19 13:27 98.6 F 73 20 157/83 H 98 Intake and Output 08/20/19 08/20/19 08/20/19 07:59 15:59 23:59 Other: Weight 119.8 kg Patient Weight 08/20/19 23:59 Weight 119.8 kg Results - Labs Laboratory Last Values WBC 9.7 X10^3/uL (4.5-11.0) 08/15/19 15:11 RBC 4.92 X10^6/uL (4.5-5.9) 08/15/19 15:11 Hgb 13.1 g/dL (13.5-17.5) L 08/15/19 15:11 Hct 39.7 % (41-53) L 08/15/19 15:11 MCV 80.6 fL (80-100) 08/15/19 15:11 MCH 26.6 PG (26-34) 08/15/19 15:11 MCHC 33.0 % (30-36) 08/15/19 15:11 RDW 15.3 % (11.6-14.8) H 08/15/19 15:11 Plt Count 159 X10^3/uL (150-400) 08/15/19 15:11 Neut % (Auto) 74.5 % (50-75) 08/15/19 15:11 Lymph % (Auto) 16.0 % (25-40) L 08/15/19 15:11 Mcdonald % (Auto) 7.8 % (3-14) 08/15/19 15:11 Eos % (Auto) 1.2 % (2-4) L 08/15/19 15:11 Baso % (Auto) 0.5 % (0-2) 08/15/19 15:11 Neut # (Auto) 7200 /uL (9389-2400) H 08/15/19 15:11 Lymph # (Auto) 1600 /uL (9795-3056) 08/15/19 15:11 Mcdonald # (Auto) 800 /uL (0-900) 08/15/19 15:11 Eos # (Auto) 100 /uL (0-450) 08/15/19 15:11 Baso # (Auto) 0 /uL (0-100) 08/15/19 15:11 Sodium 140 mmol/L (137-145) 08/15/19 15:11 Potassium 3.7 mmol/L (3.4-5.1) 08/15/19 15:11 Chloride 100 mmol/L (98-107) 08/15/19 15:11 Carbon Dioxide 32 mmol/L (22-32) 08/15/19 15:11 BUN 19 mg/dL (9-20) 08/15/19 15:11 Creatinine 0.80 mg/dL (0.66-1.25) 08/15/19 15:11 Estimated GFR > 60.0 mL/min (>60) 08/15/19 15:11 BUN/Creatinine Ratio 23.8 (6-22) H 08/15/19 15:11 Glucose 100 mg/dL (80-110) 08/15/19 15:11 Calcium 9.5 mg/dL (8.4-10.2) 08/15/19 15:11 Iron 60 ug/dL (49-181) 03/21/18 10:13 TIBC 342 ug/dL (261-462) 03/21/18 10:13 % Saturation 18 % (20-50) L 03/21/18 10:13 Transferrin 274 mg/dL (206-381) 03/21/18 10:13 Total Bilirubin 0.4 mg/dL (0.2-1.3) 08/15/19 15:11 AST 23 IU/L (17-59) 08/15/19 15:11 ALT 21 IU/L (<50) 08/15/19 15:11 Alkaline Phosphatase 139 U/L (38-126) H 08/15/19 15:11 Total Protein 7.3 g/dL (6.3-8.2) 08/15/19 15:11 Albumin 4.1 g/dL (3.5-5.0) 08/15/19 15:11 Globulin 3.2 g/dL (1.7-4.1) 08/15/19 15:11 Albumin/Globulin Ratio 1.3 (1.0-2.8) 08/15/19 15:11 Prostate Specific Ag 1.83 ng/mL (0.10-4.00) 08/15/19 15:11 Vitamin B12 489 pg/mL (239-931) 03/21/18 10:13 TSH 3.80 uIU/mL (0.47-4.68) 03/21/18 10:13 Testosterone Level 21.9 ng/dL (71.8-623) L 08/09/18 14:14 Assessment and Plan (1) Prostate cancer 64-year-old gentleman with nonmetastatic M0 castrate resistant prostate adenocarcinoma, heavily treated as mentioned. He is currently on abiraterone/prednisone. He has not had a PSA response, but his PSA is low and it has only risen from 1.1 to 1.83 over the course of 3 months. At this point, I recommend continuing current treatment. Will reassess in [address] C/a/P with contrast and WB bone scan. Future options include a retrial of apalutamide, trying a different 2nd generation antiandrogen called darolutamide, or docetaxel chemotherapy. Plan: Continue abiraterone 1000 mg daily plus prednisone 5 mg b.i.d. Return to clinic in 5-6 weeks for follow-up, CT C/a/P with contrast, WB bone scan, PSA and routine labs 2 days before appointment. Continue goserelin 10.8 mg every 3 months, last dose given 07/29/2019. 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 At this point he remains non symptomatic, is not on therapy, and there is no evidence of radiographic progression. Continue monitoring for liver metastases and mesenteric lymph nodes on future CT scans
[2019-09-25 10:50] LABS: Add Manual Diff / Slide Review NO; Basophils Absolute Auto 0 /uL (0-100); Basophils Percent Auto 0.5 % (0-2); Eosinophils Absolute Auto 300 /uL (0-450); Eosinophils Percent Auto 2.7 % (2-4); Hematocrit 39.5 % (41-53); Hemoglobin 13.1 g/dL (13.5-17.5); Lymphocytes Absolute Auto 1400 /uL (1100-4500); Lymphocytes Percent Auto 14.7 % (25-40); Mean Corpuscular HGB Conc 33.2 % (30-36); Mean Corpuscular Hemoglobin 26.3 PG (26-34); Mean Corpuscular Volume 79.3 fL (80-100); Monocytes Absolute Auto 700 /uL (0-900); Monocytes Percent Auto 7.1 % (3-14); Neutrophils Absolute Auto 7000 /uL (1500-7000); Platelet Count 171 X10^3/uL (150-400); Red Blood Cell Count 4.98 X10^6/uL (4.5-5.9); Red Cell Distribution Width 15.8 % (11.6-14.8); White Blood Cell Count 9.4 X10^3/uL (4.5-11.0)
[2019-09-25 11:20] LABS: Alanine Aminotransferase 21 IU/L (<50); Albumin 4.4 g/dL (3.5-5.0); Albumin Globulin Ratio 1.3 (1.0-2.8); Alkaline Phosphatase 121 U/L (38-126); Aspartate Aminotransferase 27 IU/L (17-59); BUN Creatinine Ratio 18.9 (6-22); Bilirubin Total 0.6 mg/dL (0.2-1.3); Blood Urea Nitrogen 17 mg/dL (9-20); Calcium 10.1 mg/dL (8.4-10.2); Carbon Dioxide 32 mmol/L (22-32); Chloride 101 mmol/L (98-107); Estimated Glomerular Filt Rate > 60.0 mL/min (>60); Globulin 3.3 g/dL (1.7-4.1); Glucose 97 mg/dL (80-110); HEMOLYSIS < 15 (0-50); Lactate Dehydrogenase 512 U/L (313-618); Potassium 4.3 mmol/L (3.4-5.1); Sodium 141 mmol/L (137-145); Total Protein 7.7 g/dL (6.3-8.2)
[2019-09-25 11:51] LABS: Prostate Specific Antigen 2.76 ng/mL (0.10-4.00)
[2019-09-25 11:53] LABS: Testosterone 37.8 ng/dL (71.8-623)
--- NOTE | 2019-10-01 08:55 | P.PNONC_ITS ---
PN -Subjective Interval history: Diagnosis: 1. Remote history of metastatic well-differentiated neuroendocrine tumor. 2. Nonmetastatic M0 castrate resistant prostate adenocarcinoma Previous treatment: 1. Neoadjuvant/concurrent/adjuvant Zoladex, 10/2015 - 04/2016, given concurrently with EBRT 11/2015 -01/2016, complicated by rectal ulcers requiring hyperbaric oxygen therapy 2. Resumption of Zoladex with Casodex beginning of March 2017. Casodex was stopped due to suicidal ideation. 3. Apalutamide, 03/2018 - 02/2019 4. Enzalutamide, 02/2019 - 04/2019 5. Abiraterone and prednisone, 04/2019 - 08/2019 6. For his neuroendocrine tumor, he underwent hepatic artery chemo infusion and chemo embolization in remote past Interval history: José Miguel Carrillo is a 64-year-old gentleman with castrate resistant M0 prostate adenocarcinoma. He is currently on abiraterone/prednisone. He presents today for oncology follow-up. He has a remote history of metastatic well-differentiated neuroendocrine tumor. He was under care of Dr. Hussein at [facility] in [place]. He was treated with hepatic arterial chemoinfusion and chemoembolization with good response in liver metastases. He was on somatostatin analog therapy for a long time, eventually quit in 2014. He has chronic inactive residual disease. He has no current issues with NET. In 2014 while living in [place], PSA was found to be 48. TRUS prostate biopsy in 07/2015 at was positive for [place] 4 + 4 adenocarcinoma. He was treated with definitive EBRT (11/2015 - 01/2016), given concurrently with neoadjuvant/concurrent/adjuvant ADT (goserelin), although stopped adjuvant early. Later in 03/2017, he resumed complete androgen blockade with goserelin plus Casodex for rising PSA, 3.28. Later he stopped Casodex in 07/2017, added again in 12/2017, stopped again in 03/2018. He was on apalutamide from 03/2018 to 02/2019. He initially had a marked PSA response (maida 0.131 on 10/03/2018, from baseline 2.18 on 05/16/2018), then it started to rise. He tried Enzalutamide, 02/2019-04/2019, with no PSA response. He started abiraterone/prednisone in 04/2019, which he continues to take. He has not had a PSA response to abiraterone and today I advised him to stop. Most recent CT C/a/P with contrast and WB bone scan (04/16/2019) were negative for evidence of metastatic disease, i.e. M0 disease. He is scheduled for repeat imaging next week. Today, he reports feeling overall chronically tired and chronically depressed. Two weeks ago, he went through a few days of feeling extremely exhausted, then improved. Denies pain. He uses medicinal marijuana at nighttime. ECOG PS 2. Current labs (09/25/2019) include rising PSA at 2.76 (1.83 on 08/15/2019 and 1.48 on 07/25/2019), serum testosterone 37.8, normal CBC and normal CMP. - Patient Self-Reported Symptoms SR Constitution: Fatigue/Malaise, Night Sweats SR ears, nose, mouth, throat issues: Ears ringing SR respiratory issues: Shortness of breath SR Cardiovascular issues: Dizzy/lightheaded SR Skin issues: Dry skin, Blistering or peeling SR Gastrointestinal issues: Poor or no appetite, Nausea, Vomiting, Diarrhea, Constipation SR Genitourinary issues: Frequent urination SR Musculoskeletal issues: Muscle weakness, Difficulty walking SR Neuro issues: Lightheaded/dizzy, Difficulty balancing SR Endocrine issues: Hot flashes Home Medications and Allergies Home Medications Medication Instructions Recorded Confirmed Type [CANNIBUS OIL] #0 06/01/17 History Zoladex #0 06/27/17 History lorazepam [Ativan] 0.5 mg PO QD-BID PRN 07/25/18 10/01/19 History nitroglycerin 0.4 mg SUBLINGUAL Q5-15M PRN 07/25/18 10/01/19 History sertraline [Zoloft] 50 mg PO DAILY 02/12/19 10/01/19 History ondansetron 8 mg PO Q8H 30 Days #30 tab 03/18/19 10/01/19 Rx abiraterone [Zytiga] 1,000 mg PO DAILY 30 Days #120 tab 05/28/19 10/01/19 Rx prednisone 5 mg PO BID 30 Days #60 tab 05/28/19 10/01/19 Rx Allergies Allergy/AdvReac Type Severity Reaction Status Date / Time oxycodone [From PERCOCET] Allergy Severe coma, Verified 06/11/18 15:16 epinephrine [EPINEPHRINE] AdvReac Intermediate Verified 06/11/18 15:16 shellfish derived AdvReac Intermediate Verified 06/11/18 15:16 [SHELLFISH DERIVED] nuts Allergy Unknown Uncoded 11/07/17 12:43 eggs AdvReac Severe unknown Uncoded 06/11/18 15:16 Results - Labs Laboratory Last Values WBC 9.4 X10^3/uL (4.5-11.0) 09/25/19 10:17 RBC 4.98 X10^6/uL (4.5-5.9) 09/25/19 10:17 Hgb 13.1 g/dL (13.5-17.5) L 09/25/19 10:17 Hct 39.5 % (41-53) L 09/25/19 10:17 MCV 79.3 fL (80-100) L 09/25/19 10:17 MCH 26.3 PG (26-34) 09/25/19 10:17 MCHC 33.2 % (30-36) 09/25/19 10:17 RDW 15.8 % (11.6-14.8) H 09/25/19 10:17 Plt Count 171 X10^3/uL (150-400) 09/25/19 10:17 Neut % (Auto) 75.0 % (50-75) 09/25/19 10:17 Lymph % (Auto) 14.7 % (25-40) L 09/25/19 10:17 [place] % (Auto) 7.1 % (3-14) 09/25/19 10:17 Eos % (Auto) 2.7 % (2-4) 09/25/19 10:17 Baso % (Auto) 0.5 % (0-2) 09/25/19 10:17 Neut # (Auto) 7000 /uL (8404-7776) 09/25/19 10:17 Lymph # (Auto) 1400 /uL (0197-8755) 09/25/19 10:17 [place] # (Auto) 700 /uL (0-900) 09/25/19 10:17 Eos # (Auto) 300 /uL (0-450) 09/25/19 10:17 Baso # (Auto) 0 /uL (0-100) 09/25/19 10:17 Sodium 141 mmol/L (137-145) 09/25/19 10:17 Potassium 4.3 mmol/L (3.4-5.1) 09/25/19 10:17 Chloride 101 mmol/L (98-107) 09/25/19 10:17 Carbon Dioxide 32 mmol/L (22-32) 09/25/19 10:17 BUN 17 mg/dL (9-20) 09/25/19 10:17 Creatinine 0.90 mg/dL (0.66-1.25) 09/25/19 10:17 Estimated GFR > 60.0 mL/min (>60) 09/25/19 10:17 BUN/Creatinine Ratio 18.9 (6-22) 09/25/19 10:17 Glucose 97 mg/dL (80-110) 09/25/19 10:17 Calcium 10.1 mg/dL (8.4-10.2) 09/25/19 10:17 Iron 60 ug/dL (49-181) 03/21/18 10:13 TIBC 342 ug/dL (261-462) 03/21/18 10:13 % Saturation 18 % (20-50) L 03/21/18 10:13 Transferrin 274 mg/dL (206-381) 03/21/18 10:13 Total Bilirubin 0.6 mg/dL (0.2-1.3) 09/25/19 10:17 AST 27 IU/L (17-59) 09/25/19 10:17 ALT 21 IU/L (<50) 09/25/19 10:17 Alkaline Phosphatase 121 U/L (38-126) 09/25/19 10:17 Lactate Dehydrogenase 512 U/L (313-618) 09/25/19 10:17 Total Protein 7.7 g/dL (6.3-8.2) 09/25/19 10:17 Albumin 4.4 g/dL (3.5-5.0) 09/25/19 10:17 Globulin 3.3 g/dL (1.7-4.1) 09/25/19 10:17 Albumin/Globulin Ratio 1.3 (1.0-2.8) 09/25/19 10:17 Prostate Specific Ag 2.76 ng/mL (0.10-4.00) 09/25/19 10:18 Vitamin B12 489 pg/mL (239-931) 03/21/18 10:13 TSH 3.80 uIU/mL (0.47-4.68) 03/21/18 10:13 Testosterone Level 37.8 ng/dL (71.8-623) L 09/25/19 10:17 Assessment and Plan (1) Prostate cancer 64-year-old gentleman with nonmetastatic M0 castrate resistant prostate adenocarcinoma, heavily treated as mentioned, including apalutamide, enzalutamide, and currently abiraterone. PSA continues to rise with PSADT approximately 2 months. Recommendations: Stop abiraterone Taper prednisone off including 5 mg q.a.m. x2 weeks then 5 mg every other a.m. x2 weeks, then stop CT C/a/P with contrast and WB bone scan scheduled in 1 week Recommend docetaxel chemotherapy 75 milligram/meter squared every 3 weeks up to 10 cycles. We discussed the rationale, schedule and potential side effects. He would like to proceed. Referral placed to [facility] for port placement Return to clinic in 2 weeks for cycle 1 docetaxel Given that his testosterone is not adequately suppressed, I recommend switching from goserelin to leuprolide. First leuprolide 30 mg injection planned in 2 weeks (2) Neuroendocrine carcinoma metastatic to liver This patient has longstanding, 20+ year history of metastatic well- differentiated NET to liver. At this point he remains non symptomatic, is not on therapy, and there is no evidence of radiographic progression. Continue monitoring for liver metastases and mesenteric lymph nodes on future CT scans
[2019-10-01 09:14] VITALS: BP 147/80; PULSE 74; RESP 20; TEMP 36.8; O2SAT 97
--- NOTE | 2019-10-01 12:36 | ONC.SCHED ---
Port scheduled for 10/06/2019 8:45 check-in per Zuri.
--- NOTE | 2019-10-06 15:08 | ONC.MSW ---
Description: Returned T/C Activity: Called and left a return message for pt's , Kristy. Requested return call.
--- NOTE | 2019-10-07 12:33 | ONC.MSW ---
Description: Care Coordination/Lodging Activity: Met with pt and his , Kristy, to discuss their upcoming move to [place] and continuing his care here at [facility]. They will be planning to move around 11/11, after their home is completely sold. They plan to continue his chemotherapy and treatment here, however will need lodging approx. 2-days each time they come down, which will be about once per month. TUBE DRAWER discussed the availability of the [facility], and explained that we can extend lodging to them with notice, and through this TUBE DRAWER. Pt is also expressing feeling extremely weak and fatigued, is experiencing balance issues, and has recently fallen several times. They request assistance with obtaining a wheelchair and a walker. TUBE DRAWER will call [employer] and find out the Medicare requirements for rentals, then f/u with pt tomorrow when he returns to clinic.
--- NOTE | 2019-10-08 12:26 | PC.NURSE ---
CHEMO TEACHING- DOCETAXEL PT came in today for chemo teaching with spouse Kristy. Went over clinic hours and contact info for triage nurse and after hours doc. Went over basics of how chemotherapy works and what to expect at first infusion. explained to pt and the process of administering chemo through port and that all chemo is checked by two nurses. All teaching information was given to patient in written form and all patients questions were answered. Went over the most common side effects and management of symptoms of Docetaxel including when to seek emergency medical treatment and when to contact triage nurse within 24 hours. The following side effects are common (occurring in greater than 30%) for patients taking docetaxel: Low white blood cell count. (This can increase your risk for infection) Low red blood cell count (anemia) Fluid retention with weight gain, swelling of the ankles or abdominal area. Peripheral neuropathy (numbness in your fingers and toes) may occur with repeated doses. This should be reported to your healthcare provider. Nausea Diarrhea Mouth sores Hair loss Fatigue and weakness Infection Nail changes (Color changes to your fingernails or toenails may occur while taking docetaxel. In extreme, but rare, cases nails may fall off. After you have finished docetaxel treatments, your nails will generally grow back) (see skin problems). These side effects are less common, meaning they occur in 10-29 percent of patients receiving docetaxel: Vomiting Muscle/bone/joint pain (myalgias and arthralgias) Low platelet count (This can increase your risk of bleeding) Increases in blood tests measuring liver function. These return to normal once treatment is discontinued. (see liver problems) Infusion-related side effects (symptoms which may occur during the actual treatment) include: Allergic reactions (rash, flushing, fever, lowered blood pressure). Happens rarely, usually occurs in the first or second infusion. Frequency is reduced by premedication with corticosteroid starting one day before infusion. You will be monitored closely during the infusion for any signs of allergic reaction. Infusion site reactions (uncommon and generally mild, consist of darkening of the vein, inflammation, redness or dryness of the skin, or swelling of the vein). Not all side effects are listed above, some that are rare (occurring in less than 10% of patients) are not listed here. However, you should always inform your health care provider if you experience any unusual symptoms. When to contact your doctor or health care provider: Contact your health care provider immediately, day or night, if you should experience any of the following symptoms: Fever of 100.4? F (38? C) or higher, chills (possible signs of infection) The following symptoms require medical attention, but are not an emergency. Contact your health care provider within 24 hours of noticing any of the following: Nausea (interferes with ability to eat and unrelieved with prescribed medication). Vomiting (vomiting more than 4-5 times in a 24 hour period). Diarrhea (4-6 episodes in a 24-hour period). Unusual bleeding or bruising. Black or tarry stools, or blood in your stools or urine. Extreme fatigue (unable to carry on self-care activities). Mouth sores (painful redness, swelling or ulcers). Yellowing of the skin or eyes. Swelling of the ankles. Weight gain. Swelling of the stomach. Shortness of breath. Pt verbalized understanding. Pt had questions regarding PT eval, home medications, and expressed concern about current medication allergies including epinephrine allergy. Pt was encouraged to speak to the doctor about these concerns, and to bring in a list of current home medications to make sure home med list is updated before treatment.
[2019-10-13 12:17] LABS: Add Manual Diff / Slide Review NO; Basophils Absolute Auto 100 /uL (0-100); Basophils Percent Auto 0.8 % (0-2); Eosinophils Absolute Auto 200 /uL (0-450); Eosinophils Percent Auto 1.9 % (2-4); Hematocrit 38.5 % (41-53); Hemoglobin 12.6 g/dL (13.5-17.5); Lymphocytes Absolute Auto 1600 /uL (1100-4500); Mean Corpuscular HGB Conc 32.8 % (30-36); Mean Corpuscular Hemoglobin 26.1 PG (26-34); Mean Corpuscular Volume 79.7 fL (80-100); Monocytes Absolute Auto 800 /uL (0-900); Monocytes Percent Auto 6.9 % (3-14); Neutrophils Absolute Auto 8900 /uL (1500-7000); Neutrophils Percent Auto 76.4 % (50-75); Platelet Count 164 X10^3/uL (150-400); Red Blood Cell Count 4.83 X10^6/uL (4.5-5.9); Red Cell Distribution Width 15.6 % (11.6-14.8); White Blood Cell Count 11.6 X10^3/uL (4.5-11.0)
[2019-10-13 12:35] LABS: Alanine Aminotransferase 35 IU/L (<50); Albumin 4.1 g/dL (3.5-5.0); Albumin Globulin Ratio 1.2 (1.0-2.8); Alkaline Phosphatase 158 U/L (38-126); Aspartate Aminotransferase 33 IU/L (17-59); BUN Creatinine Ratio 22.9 (6-22); Bilirubin Total 0.4 mg/dL (0.2-1.3); Blood Urea Nitrogen 16 mg/dL (9-20); Calcium 9.9 mg/dL (8.4-10.2); Carbon Dioxide 32 mmol/L (22-32); Chloride 101 mmol/L (98-107); Estimated Glomerular Filt Rate > 60.0 mL/min (>60); Globulin 3.5 g/dL (1.7-4.1); Glucose 118 mg/dL (80-110); HEMOLYSIS < 15 (0-50); Lactate Dehydrogenase 498 U/L (313-618); Potassium 3.4 mmol/L (3.4-5.1); Sodium 139 mmol/L (137-145); Total Protein 7.6 g/dL (6.3-8.2)
[2019-10-13 14:22] LABS: Prostate Specific Antigen 3.04 ng/mL (0.10-4.00)
--- NOTE | 2019-10-14 11:26 | ONC.MSW ---
Description: Letter for Border Crossing Activity: Completed a letter and emailed it back to pt in order to have medical proof of their need to cross the border from [place] due to their residence being in [place], and ongoing treatment here. No further needs identified at this time.
[2019-10-15 09:06] VITALS: BP 196/105; PULSE 74; RESP 16; TEMP 37.2; O2SAT 94
[2019-10-15] MEDS: DEXAMETHASONE 10 MG/ML VIAL 8 MG IV (10:13)
[2019-10-15] MEDS: ONDANSETRON 8 MG in SODIUM CHLORIDE 0.9% 50 ML 216 ML IV (10:13)
[2019-10-15] MEDS: SODIUM CHLORIDE 0.9% 100 ML 21 ML IV (10:13)
[2019-10-15] MEDS: diphenhydrAMINE 50 MG/ML VIAL 25 MG IV (11:33)
[2019-10-15] MEDS: FAMOTIDINE 20 MG/50 ML PIGGYBACK 200 MG IV (11:34)
--- NOTE | 2019-10-15 12:12 | P.PNONC_ITS ---
PN -Subjective Interval history: Diagnosis: 1. Remote history of metastatic well-differentiated neuroendocrine tumor. 2. Nonmetastatic M0 castrate resistant prostate adenocarcinoma Previous treatment: 1. Neoadjuvant/concurrent/adjuvant Zoladex, 10/2015 - 04/2016, given concurrently with EBRT 11/2015 -01/2016, complicated by rectal ulcers requiring hyperbaric oxygen therapy 2. Resumption of Zoladex with Casodex beginning of March 2017. Casodex was stopped due to suicidal ideation. 3. Apalutamide, 03/2018 - 02/2019 4. Enzalutamide, 02/2019 - 04/2019 5. Abiraterone and prednisone, 04/2019 - 08/2019 6. For his neuroendocrine tumor, he underwent hepatic artery chemo infusion and chemo embolization in remote past Interval history: José Miguel Carrillo is a 64-year-old gentleman with castrate resistant M0 prostate adenocarcinoma. He is currently on abiraterone/prednisone. He presents today for oncology follow-up. He has a remote history of metastatic well-differentiated neuroendocrine tumor. He was under care of Dr. Hussein at [facility] in [place]. He was treated with hepatic arterial chemoinfusion and chemoembolization with good response in liver metastases. He was on somatostatin analog therapy for a long time, eventually quit in 2014. He has chronic inactive residual disease. He has no current issues with NET. In 2014 while living in [place], PSA was found to be 48. TRUS prostate biopsy in 07/2015 at was positive for [place] 4 + 4 adenocarcinoma. He was treated with definitive EBRT (11/2015 - 01/2016), given concurrently with neoadjuvant/concurrent/adjuvant ADT (goserelin), although stopped adjuvant early. Later in 03/2017, he resumed complete androgen blockade with goserelin plus Casodex for rising PSA, 3.28. Later he stopped Casodex in 07/2017, added again in 12/2017, stopped again in 03/2018. He was on apalutamide from 03/2018 to 02/2019. He initially had a marked PSA response (maida 0.131 on 10/03/2018, from baseline 2.18 on 05/16/2018), then it started to rise. He tried Enzalutamide, 02/2019-04/2019, with no PSA response. He was on abiraterone/prednisone from 04/2019 to 09/2019. He continued to have a gradual rise of PSA with low absolute numbers and albuterol and was discontinued by Dr. Hope at the beginning of September 2019 with the plan to transition him to chemotherapy with Taxotere Previous CT C/a/P with contrast and WB bone scan (04/16/2019) were negative for evidence of metastatic disease, i.e. M0 disease. He is scheduled for repeat imaging next week. Current CT scan of chest abdomen and pelvis with contrast of October 07, 2019: No evidence of visceral metastases. Status post surgical prostatectomy. No adenopathy Whole-body bone scan of October 07, 2019: Focal increased uptake in the lower cervical spine which was present on previous bone scan of April 16, 2019 however is currently more intense. No other areas of abnormal uptake ECOG PS 2. Current PSA's 04/2019 1.0 07/25/19 1.48 08/15/19 1.83 09/25/19 2.76 10/13/19 3.04 serum testosterone 37.8, normal CBC and normal CMP. - Patient Self-Reported Symptoms SR Constitution: Chills, Fatigue/Malaise, Night Sweats SR ears, nose, mouth, throat issues: Ears ringing SR respiratory issues: Shortness of breath SR Cardiovascular issues: Dizzy/lightheaded SR Skin issues: Dry skin, Blistering or peeling SR Gastrointestinal issues: Poor or no appetite, Nausea, Vomiting, Diarrhea, Constipation SR Genitourinary issues: Frequent urination SR Musculoskeletal issues: Muscle weakness, Difficulty walking SR Neuro issues: Tremors or shaking, Difficulty balancing SR Endocrine issues: Cold intolerance, Heat intolerance, Excessive thirst, Hot flashes Home Medications and Allergies Home Medications Medication Instructions Recorded Confirmed Type [CANNIBUS OIL] #0 06/01/17 History lorazepam [Ativan] 0.5 mg PO QD-BID PRN 07/25/18 10/06/19 History nitroglycerin 0.4 mg SUBLINGUAL Q5-15M PRN 07/25/18 10/06/19 History sertraline [Zoloft] 50 mg PO DAILY 02/12/19 10/06/19 History ondansetron 8 mg PO Q8H 30 Days #30 tab 03/18/19 10/06/19 Rx prednisone 5 mg PO BID 30 Days #60 tab 05/28/19 10/06/19 Rx hydrocodone-acetaminophen [[place]] 1 tab PO Q4H PRN #10 tab 10/06/19 Rx Allergies Allergy/AdvReac Type Severity Reaction Status Date / Time oxycodone [From PERCOCET] Allergy Severe coma, Verified 10/06/19 09:09 epinephrine [EPINEPHRINE] AdvReac Intermediate Verified 10/06/19 09:09 shellfish derived AdvReac Intermediate Verified 10/06/19 09:09 [SHELLFISH DERIVED] nuts Allergy Unknown Uncoded 10/06/19 09:09 eggs AdvReac Severe unknown Uncoded 10/06/19 09:09 Exam Vital signs: Vital Signs Temp Pulse Resp BP Pulse Ox 10/15/19 09:06 99.0 F 74 16 196/105 H 94 Intake and Output 10/14/19 10/15/19 10/15/19 23:59 07:59 15:59 Intake Total 54 / 54 Balance 54 / 54 Intake: IV 54 / 54 Ondansetron 8 mg In Sodium 54 / 54 Chloride 0.9% 50 ml @ 216 mls/ hr IV PRECHEM MARLON Rx#:[id number] Other: Weight 123.3 kg Patient Weight 10/15/19 23:59 Weight 123.3 kg - Constitutional positive no acute distress - Routine Extremities Exam Absent: edema - Routine Skin Exam Absent: rash - Routine Neurological Exam Present: oriented X3 Results - Labs Laboratory Last Values WBC 11.6 X10^3/uL (4.5-11.0) H 10/13/19 12:00 RBC 4.83 X10^6/uL (4.5-5.9) 10/13/19 12:00 Hgb 12.6 g/dL (13.5-17.5) L 10/13/19 12:00 Hct 38.5 % (41-53) L 10/13/19 12:00 MCV 79.7 fL (80-100) L 10/13/19 12:00 MCH 26.1 PG (26-34) 10/13/19 12:00 MCHC 32.8 % (30-36) 10/13/19 12:00 RDW 15.6 % (11.6-14.8) H 10/13/19 12:00 Plt Count 164 X10^3/uL (150-400) 10/13/19 12:00 Neut % (Auto) 76.4 % (50-75) H 10/13/19 12:00 Lymph % (Auto) 14.0 % (25-40) L 10/13/19 12:00 [place] % (Auto) 6.9 % (3-14) 10/13/19 12:00 Eos % (Auto) 1.9 % (2-4) L 10/13/19 12:00 Baso % (Auto) 0.8 % (0-2) 10/13/19 12:00 Neut # (Auto) 8900 /uL (9299-7969) H 10/13/19 12:00 Lymph # (Auto) 1600 /uL (4152-1938) 10/13/19 12:00 [place] # (Auto) 800 /uL (0-900) 10/13/19 12:00 Eos # (Auto) 200 /uL (0-450) 10/13/19 12:00 Baso # (Auto) 100 /uL (0-100) 10/13/19 12:00 Sodium 139 mmol/L (137-145) 10/13/19 12:00 Potassium 3.4 mmol/L (3.4-5.1) 10/13/19 12:00 Chloride 101 mmol/L (98-107) 10/13/19 12:00 Carbon Dioxide 32 mmol/L (22-32) 10/13/19 12:00 BUN 16 mg/dL (9-20) 10/13/19 12:00 Creatinine 0.70 mg/dL (0.66-1.25) 10/13/19 12:00 Estimated GFR > 60.0 mL/min (>60) 10/13/19 12:00 BUN/Creatinine Ratio 22.9 (6-22) H 10/13/19 12:00 Glucose 118 mg/dL (80-110) H 10/13/19 12:00 Calcium 9.9 mg/dL (8.4-10.2) 10/13/19 12:00 Iron 60 ug/dL (49-181) 03/21/18 10:13 TIBC 342 ug/dL (261-462) 03/21/18 10:13 % Saturation 18 % (20-50) L 03/21/18 10:13 Transferrin 274 mg/dL (206-381) 03/21/18 10:13 Total Bilirubin 0.4 mg/dL (0.2-1.3) 10/13/19 12:00 AST 33 IU/L (17-59) 10/13/19 12:00 ALT 35 IU/L (<50) 10/13/19 12:00 Alkaline Phosphatase 158 U/L (38-126) H 10/13/19 12:00 Lactate Dehydrogenase 498 U/L (313-618) 10/13/19 12:00 Total Protein 7.6 g/dL (6.3-8.2) 10/13/19 12:00 Albumin 4.1 g/dL (3.5-5.0) 10/13/19 12:00 Globulin 3.5 g/dL (1.7-4.1) 10/13/19 12:00 Albumin/Globulin Ratio 1.2 (1.0-2.8) 10/13/19 12:00 Prostate Specific Ag 3.04 ng/mL (0.10-4.00) 10/13/19 12:00 Vitamin B12 489 pg/mL (239-931) 03/21/18 10:13 TSH 3.80 uIU/mL (0.47-4.68) 03/21/18 10:13 Testosterone Level 37.8 ng/dL (71.8-623) L 09/25/19 10:17 Assessment and Plan (1) Prostate cancer 64-year-old gentleman with nonmetastatic M0 castrate resistant prostate adenocarcinoma, heavily treated as mentioned, including apalutamide, enzalutamide, and currently abiraterone. He has had overall low levels of PSA however the trend has been rising and he has had suboptimal response to 2nd and 3rd line hormonal therapies as outlined above with only brief stabilization of PSA and then gradual rise. The last treatment with Zytiga since April has shown a PSA of 1.0 gradually increasing to 3.0 over the period of 5 months. Therefore Zytiga has been discontinued since beginning of September 2019 and the patient at last visit with Dr. Hope was recommended to transition to chemotherapy with Taxotere. He has had a port a catheter placed recently without issues. His current CT scan of chest abdomen and pelvis with contrast and whole-body bone scan of September 2019 still shows no evidence of obvious measurable metastatic disease except for an area in the lower cervical spine with increased activity in the bone scan which has increased compared to the previous bone scan of 2019. This still could be degenerative however will order a MRI of the cervical spine to evaluate that. His low-dose prednisone with Zytiga has been tapered off to every other day and he will stop that. Because of measurable testosterone of 37 the plan is also to change his Zoladex to Lupron. He will receive a 4 month dose of Lupron/30 mg IM injection today First cycle of chemotherapy with Taxotere at 75 milligram/meter sq. The PSA was capped at 2.0, his actual BSA is 2.46 to reduce toxicity. Patel side effects were reviewed. Informed consent obtained. Proceed with cycle 1 of chemotherapy today. He will be premedicated with Zofran, dexamethasone, Benadryl and Pepcid to reduce the risk of infusion reaction. Depending on his tolerance if he has any significant and general side effects or significant neutropenia modifications can be made to cycle 2 by either slight dose reduction or addition of G-CSF support Return in 1 week with labs and assessment for toxicity (2) Neuroendocrine carcinoma metastatic to liver This patient has longstanding, 20+ year history of metastatic well- differentiated NET to liver. At this point he remains non symptomatic, is not on therapy, and there is no evidence of radiographic progression. He has no symptoms of hormonally active neuroendocrine tumor and has no carcinoid syndrome. His current CT abdomen with contrast of October 07, 2019 shows only ?scattered small hepatic calcified radiodensities consistent with old granulomatous disease?. So I am not sure whether he has any active disease at all in regard to the of neuroendocrine tumor
[2019-10-15] MEDS: DOCETAXEL IV (12:22)
[2019-10-15] MEDS: SODIUM CHLORIDE EXCEL IV (12:22)
[2019-10-15 12:41] VITALS: BP 161/95; PULSE 69; RESP 16; TEMP 36.7; O2SAT 92
[2019-10-15] MEDS: LEUPROLIDE 30 MG SUBCUT (13:43)
--- NOTE | 2019-10-20 09:03 | PC.NURSE ---
PATIENT'S LEFT MESSAGE AT 0858 TODAY THAT NEED CALL BACK FOR CHEST PAIN ALTHO SHE STATED IT WAS SHE THOUGHT NON EMERGENT. PATIENT HAD CHEMO LAST WEEK. THIS NURSE ATTEMPTED TO CALL BACK AT 0905 AFTER RECEIVING MESSAGE. NO ANSWER, MESSAGE LEFT ON 'S PHONE. SECOND TRY MADE 5 MINUTES LATER WITH NO ANSWER. NO ADDITIONAL PHONE NUMBERS AVAILABLE UNDER PATIENT DEMOGRAPHICS.
--- NOTE | 2019-10-20 10:24 | PC.NURSE ---
PATIENT CALLED AND REPORTED STRONG BACK PAIN LOWER LEFT SINCE , ESPECIALLY WHEN STANDING UP OR SITTING DOWN SINCE LAST . URINATION PLENTY AND LIGHT YELLOW, BM NORMAL, LAST YESTERDAY, NO SOB, COUGH OR FEVER. HE AWOKE LAST NIGHT WITH CHEST PRESSURE, FELT LIKE SOMEONE SITTING ON ME. IT WAS RELIEVED AFTER ONE HOUR WITH TYLENOL AND MARIJUANA OIL, SLIGHT PRESSURE THIS AM. REPORT MADE TO DR WHITE. AND PATIENT TOLD TO WATCH IF PRESSURE OR PAIN REOCCUR OR BECOME WORSE, IF SO TO GO TO ER. PATIENT TOLD TO TRY SHORT FREQUENT WALKS AND STANIGN AND SITTING WITH BENT KNEES AND STRAIGHT BACK TO SEE IF BACK PAIN RESOLVES, ALSO TO USE HIS PAIN MEDS AND REPORT AT F/U ON 10/21.
--- NOTE | 2019-10-20 16:31 | PC.NURSE ---
MRI: PATIENT REPORTED THAT HE CANCELLED MRI TEST HE DID NOT WANT TO COME INTO HOSPITAL AN EXTRA TIME WITH SUSANNE. THIS NURSE TOLD HIM TO PLEASE DISCUSS IT WITH AT F/U THIS WEEK.
--- NOTE | 2019-10-22 12:51 | ONC.PN ---
PN -Subjective Interval history: Diagnosis: 1. Remote history of metastatic well-differentiated neuroendocrine tumor. 2. Nonmetastatic castrate resistant prostate adenocarcinoma Previous treatment: 1. Neoadjuvant/concurrent/adjuvant Zoladex, 10/2015 - 04/2016, given concurrently with EBRT 11/2015 -01/2016, complicated by rectal ulcers requiring hyperbaric oxygen therapy 2. Resumption of Zoladex with Casodex beginning March 2017. Casodex was stopped due to suicidal ideation. 3. Apalutamide, 03/2018 - 02/2019 4. Enzalutamide, 02/2019 - 04/2019 5. Abiraterone and prednisone, 04/2019 - 08/2019 6. For his neuroendocrine tumor, he underwent hepatic artery chemo infusion and chemoembolization in remote past Interval history: José Miguel Carrillo is a 64-year-old gentleman with castrate resistant M0 prostate adenocarcinoma. He is currently on abiraterone/prednisone. He presents today for oncology follow-up. He has a remote history of metastatic well-differentiated neuroendocrine tumor. He was under care of Dr. Hussein at [facility] in [place]. He was treated with hepatic arterial chemoinfusion and chemoembolization with good response in liver metastases. He was on somatostatin analog therapy for a long time, eventually quit in 2014. He has chronic inactive residual disease. He has no current issues with NET. In 2014 while living in [place], PSA was found to be 48. TRUS prostate biopsy in 07/2015 at was positive for [place] 4 + 4 adenocarcinoma. He was treated with definitive EBRT (11/2015 - 01/2016), given concurrently with neoadjuvant/concurrent/adjuvant ADT (goserelin), although stopped adjuvant early. Later in 03/2017, he resumed complete androgen blockade with goserelin plus Casodex for rising PSA, 3.28. Later he stopped Casodex in 07/2017, added again in 12/2017, stopped again in 03/2018. He was on apalutamide from 03/2018 to 02/2019. He initially had a marked PSA response (maida 0.131 on 10/03/2018, from baseline 2.18 on 05/16/2018), then it started to rise. He tried Enzalutamide, 02/2019-04/2019, with no PSA response. He was on abiraterone/prednisone from 04/2019 to 09/2019. He continued to have a gradual rise of PSA with low absolute numbers and albuterol and was discontinued by Dr. Hope at the beginning of September 2019 with the plan to transition him to chemotherapy with Taxotere Previous CT C/A/P with contrast and WB bone scan (04/16/2019) were negative for evidence of metastatic disease, i.e. M0 disease. CT scan of chest abdomen and pelvis with contrast of October 07, 2019: No evidence of visceral metastases. Status post surgical prostatectomy. No adenopathy Whole-body bone scan of October 07, 2019: Focal increased uptake in the lower cervical spine which was present on previous bone scan of April 16, 2019 however is currently more intense. No other areas of abnormal uptake ECOG PS 2. Current PSA's 04/2019 1.0 07/25/19 1.48 08/15/19 1.83 09/25/19 2.76 10/13/19 3.04 serum testosterone 37.8, normal CBC and normal CMP. He started chemotherapy with single agent Taxotere on 10/15/2019. He has had some low back pain. He also noted sternal pain. - Patient Self-Reported Symptoms SR Constitution: Chills, Fatigue/Malaise, Night Sweats SR ears, nose, mouth, throat issues: Ears ringing SR respiratory issues: Shortness of breath SR Cardiovascular issues: Dizzy/lightheaded SR Skin issues: Dry skin, Blistering or peeling SR Gastrointestinal issues: Poor or no appetite, Nausea, Vomiting, Diarrhea, Constipation SR Genitourinary issues: Frequent urination SR Musculoskeletal issues: Muscle weakness, Difficulty walking SR Neuro issues: Tremors or shaking, Difficulty balancing SR Endocrine issues: Cold intolerance, Heat intolerance, Excessive thirst, Hot flashes Home Medications and Allergies Home Medications Medication Instructions Recorded Confirmed Type [CANNIBUS OIL] #0 06/01/17 History lorazepam [Ativan] 0.5 mg PO QD-BID PRN 07/25/18 10/22/19 History nitroglycerin 0.4 mg SUBLINGUAL Q5-15M PRN 07/25/18 10/22/19 History sertraline [Zoloft] 50 mg PO DAILY 02/12/19 10/22/19 History ondansetron 8 mg PO Q8H 30 Days #30 tab 03/18/19 10/22/19 Rx prednisone 5 mg PO BID 30 Days #60 tab 05/28/19 10/22/19 Rx hydrocodone-acetaminophen [[place]] 1 tab PO Q4H PRN #10 tab 10/06/19 10/22/19 Rx Allergies Allergy/AdvReac Type Severity Reaction Status Date / Time oxycodone [From PERCOCET] Allergy Severe coma, Verified 10/06/19 09:09 epinephrine [EPINEPHRINE] AdvReac Intermediate Verified 10/06/19 09:09 shellfish derived AdvReac Intermediate Verified 10/06/19 09:09 [SHELLFISH DERIVED] nuts Allergy Unknown Uncoded 10/06/19 09:09 eggs AdvReac Severe unknown Uncoded 10/06/19 09:09 Exam Narrative: HEENT: Pupils equally round reactive to light extraocular muscles intact sclerae anicteric conjunctiva pink mucous membranes moist no oral lesions Nodes no palpable adenopathy in the neck axilla or groin Chest: Clear throughout Cardiac exam regular rate and rhythm with normal S1 and S2 Abdomen: Soft nontender with normoactive bowel tones no splenomegaly or masses Extremities: Trace pedal edema 2+ distal pulses no calf tenderness Results - Labs Laboratory Last Values WBC 11.6 X10^3/uL (4.5-11.0) H 10/13/19 12:00 RBC 4.83 X10^6/uL (4.5-5.9) 10/13/19 12:00 Hgb 12.6 g/dL (13.5-17.5) L 10/13/19 12:00 Hct 38.5 % (41-53) L 10/13/19 12:00 MCV 79.7 fL (80-100) L 10/13/19 12:00 MCH 26.1 PG (26-34) 10/13/19 12:00 MCHC 32.8 % (30-36) 10/13/19 12:00 RDW 15.6 % (11.6-14.8) H 10/13/19 12:00 Plt Count 164 X10^3/uL (150-400) 10/13/19 12:00 Neut % (Auto) 76.4 % (50-75) H 10/13/19 12:00 Lymph % (Auto) 14.0 % (25-40) L 10/13/19 12:00 [place] % (Auto) 6.9 % (3-14) 10/13/19 12:00 Eos % (Auto) 1.9 % (2-4) L 10/13/19 12:00 Baso % (Auto) 0.8 % (0-2) 10/13/19 12:00 Neut # (Auto) 8900 /uL (8166-1452) H 10/13/19 12:00 Lymph # (Auto) 1600 /uL (3951-4569) 10/13/19 12:00 [place] # (Auto) 800 /uL (0-900) 10/13/19 12:00 Eos # (Auto) 200 /uL (0-450) 10/13/19 12:00 Baso # (Auto) 100 /uL (0-100) 10/13/19 12:00 Sodium 139 mmol/L (137-145) 10/13/19 12:00 Potassium 3.4 mmol/L (3.4-5.1) 10/13/19 12:00 Chloride 101 mmol/L (98-107) 10/13/19 12:00 Carbon Dioxide 32 mmol/L (22-32) 10/13/19 12:00 BUN 16 mg/dL (9-20) 10/13/19 12:00 Creatinine 0.70 mg/dL (0.66-1.25) 10/13/19 12:00 Estimated GFR > 60.0 mL/min (>60) 10/13/19 12:00 BUN/Creatinine Ratio 22.9 (6-22) H 10/13/19 12:00 Glucose 118 mg/dL (80-110) H 10/13/19 12:00 Calcium 9.9 mg/dL (8.4-10.2) 10/13/19 12:00 Iron 60 ug/dL (49-181) 03/21/18 10:13 TIBC 342 ug/dL (261-462) 03/21/18 10:13 % Saturation 18 % (20-50) L 03/21/18 10:13 Transferrin 274 mg/dL (206-381) 03/21/18 10:13 Total Bilirubin 0.4 mg/dL (0.2-1.3) 10/13/19 12:00 AST 33 IU/L (17-59) 10/13/19 12:00 ALT 35 IU/L (<50) 10/13/19 12:00 Alkaline Phosphatase 158 U/L (38-126) H 10/13/19 12:00 Lactate Dehydrogenase 498 U/L (313-618) 10/13/19 12:00 Total Protein 7.6 g/dL (6.3-8.2) 10/13/19 12:00 Albumin 4.1 g/dL (3.5-5.0) 10/13/19 12:00 Globulin 3.5 g/dL (1.7-4.1) 10/13/19 12:00 Albumin/Globulin Ratio 1.2 (1.0-2.8) 10/13/19 12:00 Prostate Specific Ag 3.04 ng/mL (0.10-4.00) 10/13/19 12:00 Vitamin B12 489 pg/mL (239-931) 03/21/18 10:13 TSH 3.80 uIU/mL (0.47-4.68) 03/21/18 10:13 Testosterone Level 37.8 ng/dL (71.8-623) L 09/25/19 10:17 Assessment and Plan (1) Prostate cancer 64-year-old gentleman with nonmetastatic M0 castrate resistant prostate adenocarcinoma, heavily treated as mentioned, including apalutamide, enzalutamide, and currently abiraterone. He has had overall low levels of PSA however the trend has been rising and he has had suboptimal response to 2nd and 3rd line hormonal therapies as outlined above with only brief stabilization of PSA and then gradual rise. The last treatment with Zytiga since April has shown a PSA of 1.0 gradually increasing to 3.0 over the period of 5 months. Therefore Zytiga has been discontinued since beginning of September 2019 and the patient at last visit with Dr. Hope was recommended to transition to chemotherapy with Taxotere. He has had a port-a-cath placed. His current CT scan of chest abdomen and pelvis with contrast and whole-body bone scan of September 2019 still shows no evidence of obvious measurable metastatic disease except for an area in the lower cervical spine with increased activity in the bone scan which has increased compared to the previous bone scan of 2019. This still could be degenerative however will re-order MRI of the cervical spine to evaluate. His low-dose prednisone with Zytiga has been tapered off to every other day and he will stop that. Because of measurable testosterone of 37 the plan is also to change his Zoladex to Lupron. He received a 4 month dose of Lupron 30 mg IM injection in September. First cycle of chemotherapy with Taxotere at 75 milligram/meter sq administered on 10/15/2019. The PSA was capped at 2.0 to reduce toxicity; his actual BSA is 2.46 meters squared. Patel side effects were reviewed. Informed consent obtained. He was premedicated with Zofran, dexamethasone, Benadryl and Pepcid to reduce the risk of infusion reaction. Depending on his tolerance if he has any significant and general side effects or significant neutropenia modifications can be made to cycle 2 by either slight dose reduction or addition of G-CSF support No significant toxicity. Return in 2 weeks for cycle 2 chemotherapy with Taxotere (docetaxel). 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 At this point he remains asymptomatic, is not on therapy, and there is no evidence of radiographic progression. He has no symptoms of hormonally active neuroendocrine tumor and has no carcinoid syndrome. His CT abdomen with contrast of October 07, 2019 shows only ?scattered small hepatic calcified radiodensities consistent with old granulomatous disease?. There is no definitive evidence that he has active neuroendocrine tumor. Continue to monitor.
[2019-10-22 15:15] VITALS: BP 146/90; PULSE 71; RESP 20; TEMP 36.8; O2SAT 97
[2019-10-22 16:02] LABS: Add Manual Diff / Slide Review NO; Basophils Absolute Auto 0 /uL (0-100); Basophils Percent Auto 0.3 % (0-2); Eosinophils Absolute Auto 100 /uL (0-450); Eosinophils Percent Auto 1.6 % (2-4); Hematocrit 35.9 % (41-53); Hemoglobin 12.1 g/dL (13.5-17.5); Lymphocytes Absolute Auto 1200 /uL (1100-4500); Lymphocytes Percent Auto 18.6 % (25-40); Mean Corpuscular HGB Conc 33.7 % (30-36); Mean Corpuscular Hemoglobin 26.8 PG (26-34); Mean Corpuscular Volume 79.6 fL (80-100); Monocytes Absolute Auto 300 /uL (0-900); Monocytes Percent Auto 4.2 % (3-14); Neutrophils Absolute Auto 4800 /uL (1500-7000); Neutrophils Percent Auto 75.3 % (50-75); Platelet Count 191 X10^3/uL (150-400); Red Blood Cell Count 4.51 X10^6/uL (4.5-5.9); Red Cell Distribution Width 15.2 % (11.6-14.8); White Blood Cell Count 6.4 X10^3/uL (4.5-11.0)
[2019-10-22 16:13] LABS: Alanine Aminotransferase 31 IU/L (<50); Albumin Globulin Ratio 1.2 (1.0-2.8); Alkaline Phosphatase 159 U/L (38-126); Aspartate Aminotransferase 27 IU/L (17-59); BUN Creatinine Ratio 22.4 (6-22); Bilirubin Total 0.3 mg/dL (0.2-1.3); Blood Urea Nitrogen 17 mg/dL (9-20); Calcium 9.2 mg/dL (8.4-10.2); Carbon Dioxide 32 mmol/L (22-32); Chloride 102 mmol/L (98-107); Estimated Glomerular Filt Rate > 60.0 mL/min (>60); Globulin 3.4 g/dL (1.7-4.1); Glucose 122 mg/dL (80-110); HEMOLYSIS < 15 (0-50); Potassium 3.3 mmol/L (3.4-5.1); Sodium 139 mmol/L (137-145); Total Protein 7.4 g/dL (6.3-8.2)
--- NOTE | 2019-11-03 09:03 | ONC.MSW ---
Description: T/C re: MRI, concerns Activity: Pt emailed this INFORMATION SYSTEMS TECHNICIAN and requested that I go over his MRI results with him by phone, that he saw his results, and is concerned about a new lesion. He already has an appt. with Dr. Jiménez this coming . He then emailed back and states that a triage nurse told him on Sunday that Dr. Jiménez will call him on Sunday to do this. INFORMATION SYSTEMS TECHNICIAN spoke with Dr. Jiménez, who states that the lesion is not an urgent concern, and that he would discuss the results directly with the patient at his appt. on . INFORMATION SYSTEMS TECHNICIAN emailed pt back and confirmed that Dr. Jiménez would not be calling him today, and would speak with him on . He expressed understanding. All email communication was sent securely, per protocol.
[2019-11-06 08:57] LABS: Add Manual Diff / Slide Review NO; Basophils Absolute Auto 0 /uL (0-100); Basophils Percent Auto 0.4 % (0-2); Eosinophils Absolute Auto 100 /uL (0-450); Eosinophils Percent Auto 0.8 % (2-4); Hematocrit 37.5 % (41-53); Hemoglobin 12.3 g/dL (13.5-17.5); Lymphocytes Absolute Auto 1400 /uL (1100-4500); Lymphocytes Percent Auto 13.4 % (25-40); Mean Corpuscular HGB Conc 32.8 % (30-36); Mean Corpuscular Hemoglobin 26.2 PG (26-34); Mean Corpuscular Volume 79.7 fL (80-100); Monocytes Absolute Auto 600 /uL (0-900); Monocytes Percent Auto 6.1 % (3-14); Neutrophils Absolute Auto 8400 /uL (1500-7000); Neutrophils Percent Auto 79.3 % (50-75); Platelet Count 153 X10^3/uL (150-400); Red Cell Distribution Width 15.3 % (11.6-14.8); White Blood Cell Count 10.6 X10^3/uL (4.5-11.0)
[2019-11-06 09:08] LABS: Alanine Aminotransferase 27 IU/L (<50); Albumin Globulin Ratio 1.2 (1.0-2.8); Alkaline Phosphatase 158 U/L (38-126); Aspartate Aminotransferase 32 IU/L (17-59); BUN Creatinine Ratio 18.2 (6-22); Bilirubin Total 0.4 mg/dL (0.2-1.3); Blood Urea Nitrogen 14 mg/dL (9-20); Calcium 9.1 mg/dL (8.4-10.2); Carbon Dioxide 29 mmol/L (22-32); Chloride 102 mmol/L (98-107); Estimated Glomerular Filt Rate > 60.0 mL/min (>60); Globulin 3.4 g/dL (1.7-4.1); Glucose 186 mg/dL (80-110); HEMOLYSIS < 15 (0-50); Potassium 3.2 mmol/L (3.4-5.1); Sodium 138 mmol/L (137-145); Total Protein 7.4 g/dL (6.3-8.2)
[2019-11-06 09:10] VITALS: BP 176/96; PULSE 66; RESP 16; TEMP 36.8; O2SAT 96
[2019-11-06 09:38] LABS: Prostate Specific Antigen 4.25 ng/mL (0.10-4.00)
[2019-11-06] MEDS: POTASSIUM CHLORIDE 10 MEQ in SODIUM CHLORIDE 0.9% 100 ML 105 ML IV (10:12)
[2019-11-06 11:14] VITALS: BP 182/100; PULSE 66; RESP 18; TEMP 36.8; O2SAT 96
[2019-11-06] MEDS: ONDANSETRON 8 MG in SODIUM CHLORIDE 0.9% 50 ML 216 ML IV (11:38)
[2019-11-06] MEDS: DEXAMETHASONE 10 MG/ML VIAL 8 MG IV (11:38)
[2019-11-06] MEDS: SODIUM CHLORIDE 0.9% 100 ML 30 ML IV (11:39)
--- NOTE | 2019-11-06 12:02 | ONC.PN ---
PN -Subjective Interval history: ID/CC: 64 year old with: 1. Remote history of metastatic well-differentiated neuroendocrine tumor. 2. metastatic castrate resistant prostate adenocarcinoma HPI: Mr. José Miguel Carrillo is a 64-year-old gentleman with castrate resistant M0 prostate adenocarcinoma. He has a remote history of metastatic well-differentiated neuroendocrine tumor. He was under care of Dr. Hussein at [facility] in [place]. He was treated with hepatic arterial chemoinfusion and chemoembolization with good response in liver metastases. He was on somatostatin analog therapy for a long time, eventually he quitted in 2014. He has chronic inactive residual disease. He has no current issues with NET. In 2014 while living in [place], PSA was found to be 48. TRUS prostate biopsy in 07/2015 at was positive for [place] 4 + 4 adenocarcinoma. He was treated with definitive EBRT (11/2015 - 01/2016), given concurrently with neoadjuvant/concurrent/adjuvant ADT (goserelin), although stopped adjuvant early. Later in 03/2017, he resumed complete androgen blockade with goserelin plus Casodex for rising PSA, 3.28. Later he stopped Casodex in 07/2017, added again in 12/2017, stopped again in 03/2018. Then, he received apalutamide from 03/2018 to 02/2019. He initially had a marked PSA response (maida 0.131 on 10/03/2018, from baseline 2.18 on 05/16/2018), then it started to rise. He tried Enzalutamide, 02/2019-04/2019, with no PSA response. He was then put on abiraterone/prednisone from 04/2019 to 09/2019. Previous CT C/A/P with contrast and WB bone scan (04/16/2019) were negative for evidence of metastatic disease, i.e. M0 disease. CT scan of chest abdomen and pelvis with contrast of October 07, 2019: No evidence of visceral metastases. Status post surgical prostatectomy. No adenopathy. Whole-body bone scan of October 07, 2019 however showed focal increased uptake in the lower cervical spine which was present on previous bone scan of April 16, 2019 however is currently more intense. No other areas of abnormal uptake. He continued to have a gradual rise of PSA. At he beginning of September 2019 with the plan to transition him to chemotherapy with Taxotere Current PSA's 04/2019 1.0 07/25/19 1.48 08/15/19 1.83 09/25/19 2.76 10/13/19 3.04 Interval History: Since his previous visit, because of the bone scan finding of lower cervical spine abnormal focal uptake, patient underwent MR cervical spine on 10/23/2019. The scan showed findings within the C6 vertebral body highly suspicious for metastatic disease. Clinically, patient reports no neck pain. No other bone pain. He was started chemotherapy with single agent Taxotere on 10/15/2019. He presents here today for cycle 2 chemotherapy. Patient reports no fever and no chills. No nausea no vomiting. No diarrhea and no constipation. Patient does report couple of days of fatigue. And he is reporting lower back pain especially on the left side. Treatment Summary: 1. Neoadjuvant/concurrent/adjuvant Zoladex, 10/2015 - 04/2016, with EBRT 11/2015 -01/2016 2. EBRT was complicated by rectal ulcers requiring hyperbaric oxygen therapy 3. Resumption of Zoladex with Casodex beginning March 2017. Casodex was stopped due to suicidal ideation. 4. Apalutamide, 03/2018 - 02/2019 5. Enzalutamide, 02/2019 - 04/2019 6. Abiraterone and prednisone, 04/2019 - 08/2019 7. Docetaxel 10/15/2019 8. For his neuroendocrine tumor, he underwent hepatic artery chemo infusion and chemoembolization in remote past - Patient Self-Reported Symptoms SR Constitution: Chills, Fatigue/Malaise, Night Sweats SR ears, nose, mouth, throat issues: Ears ringing SR respiratory issues: Shortness of breath SR Cardiovascular issues: Dizzy/lightheaded SR Skin issues: Dry skin, Blistering or peeling SR Gastrointestinal issues: Poor or no appetite, Nausea, Vomiting, Diarrhea, Constipation SR Genitourinary issues: Frequent urination SR Musculoskeletal issues: Muscle weakness, Difficulty walking SR Neuro issues: Tremors or shaking, Difficulty balancing SR Endocrine issues: Cold intolerance, Heat intolerance, Excessive thirst, Hot flashes - Additional ROS All systems PM: reviewed and no additional remarkable complaints except as stated Home Medications and Allergies Home Medications Medication Instructions Recorded Confirmed Type [CANNIBUS OIL] #0 06/01/17 History lorazepam [Ativan] 0.5 mg PO QD-BID PRN 07/25/18 10/22/19 History nitroglycerin 0.4 mg SUBLINGUAL Q5-15M PRN 07/25/18 10/22/19 History sertraline [Zoloft] 50 mg PO DAILY 02/12/19 10/22/19 History ondansetron 8 mg PO Q8H 30 Days #30 tab 03/18/19 10/22/19 Rx prednisone 5 mg PO BID 30 Days #60 tab 05/28/19 10/22/19 Rx hydrocodone-acetaminophen [[place]] 1 tab PO Q4H PRN #10 tab 10/06/19 10/22/19 Rx hydrocodone-acetaminophen 1 tab PO Q6H PRN #60 tab 11/06/19 Rx Allergies Allergy/AdvReac Type Severity Reaction Status Date / Time oxycodone [From PERCOCET] Allergy Severe coma, Verified 10/06/19 09:09 epinephrine [EPINEPHRINE] AdvReac Intermediate Verified 10/06/19 09:09 shellfish derived AdvReac Intermediate Verified 10/06/19 09:09 [SHELLFISH DERIVED] nuts Allergy Unknown Uncoded 10/06/19 09:09 eggs AdvReac Severe unknown Uncoded 10/06/19 09:09 Exam Vital signs: Last Vital Signs Temp 98.2 F 11/06/19 11:14 Pulse 66 11/06/19 11:14 Resp 18 11/06/19 11:14 BP 182/100 H 11/06/19 11:14 Pulse Ox 96 11/06/19 11:14 Narrative: ECOG 1 Vitals above reviewed Constitutional: WDWN, well nourished, and well groomed. NAD. Pleasant and cooperative. HEENT: NCAT, EOMI, PERRLA, anicteric sclera. Respiratory: No use of accessory muscles Musculoskeletal: normal gait and station Neurological: AOx3, CN II-XII grossly intact. No focal motor or sensory deficit. Psychiatric: normal mood and affect. Results - Labs Laboratory Last Values WBC 10.6 X10^3/uL (4.5-11.0) 11/06/19 08:45 RBC 4.70 X10^6/uL (4.5-5.9) 11/06/19 08:45 Hgb 12.3 g/dL (13.5-17.5) L 11/06/19 08:45 Hct 37.5 % (41-53) L 11/06/19 08:45 MCV 79.7 fL (80-100) L 11/06/19 08:45 MCH 26.2 PG (26-34) 11/06/19 08:45 MCHC 32.8 % (30-36) 11/06/19 08:45 RDW 15.3 % (11.6-14.8) H 11/06/19 08:45 Plt Count 153 X10^3/uL (150-400) 11/06/19 08:45 Neut % (Auto) 79.3 % (50-75) H 11/06/19 08:45 Lymph % (Auto) 13.4 % (25-40) L 11/06/19 08:45 Travis % (Auto) 6.1 % (3-14) 11/06/19 08:45 Eos % (Auto) 0.8 % (2-4) L 11/06/19 08:45 Baso % (Auto) 0.4 % (0-2) 11/06/19 08:45 Neut # (Auto) 8400 /uL (6161-4811) H 11/06/19 08:45 Lymph # (Auto) 1400 /uL (3094-6448) 11/06/19 08:45 Travis # (Auto) 600 /uL (0-900) 11/06/19 08:45 Eos # (Auto) 100 /uL (0-450) 11/06/19 08:45 Baso # (Auto) 0 /uL (0-100) 11/06/19 08:45 Sodium 138 mmol/L (137-145) 11/06/19 08:45 Potassium 3.2 mmol/L (3.4-5.1) L 11/06/19 08:45 Chloride 102 mmol/L (98-107) 11/06/19 08:45 Carbon Dioxide 29 mmol/L (22-32) 11/06/19 08:45 BUN 14 mg/dL (9-20) 11/06/19 08:45 Creatinine 0.77 mg/dL (0.66-1.25) 11/06/19 08:45 Estimated GFR > 60.0 mL/min (>60) 11/06/19 08:45 BUN/Creatinine Ratio 18.2 (6-22) 11/06/19 08:45 Glucose 186 mg/dL (80-110) H 11/06/19 08:45 Calcium 9.1 mg/dL (8.4-10.2) 11/06/19 08:45 Iron 60 ug/dL (49-181) 03/21/18 10:13 TIBC 342 ug/dL (261-462) 03/21/18 10:13 % Saturation 18 % (20-50) L 03/21/18 10:13 Transferrin 274 mg/dL (206-381) 03/21/18 10:13 Total Bilirubin 0.4 mg/dL (0.2-1.3) 11/06/19 08:45 AST 32 IU/L (17-59) 11/06/19 08:45 ALT 27 IU/L (<50) 11/06/19 08:45 Alkaline Phosphatase 158 U/L (38-126) H 11/06/19 08:45 Lactate Dehydrogenase 498 U/L (313-618) 10/13/19 12:00 Total Protein 7.4 g/dL (6.3-8.2) 11/06/19 08:45 Albumin 4.0 g/dL (3.5-5.0) 11/06/19 08:45 Globulin 3.4 g/dL (1.7-4.1) 11/06/19 08:45 Albumin/Globulin Ratio 1.2 (1.0-2.8) 11/06/19 08:45 Prostate Specific Ag 4.25 ng/mL (0.10-4.00) H D 11/06/19 08:45 Vitamin B12 489 pg/mL (239-931) 03/21/18 10:13 TSH 3.80 uIU/mL (0.47-4.68) 03/21/18 10:13 Testosterone Level 37.8 ng/dL (71.8-623) L 09/25/19 10:17 Assessment and Plan (1) Prostate cancer Overview: 64-year-old gentleman with metastatic CRPC. His prostate cancer was initially diagnosed in 2014, [place] 4+4. He underwent definitive EBRT 11/2015-01/2016 with ADT. Throughout next couple of years, he has received casodex, apalutamide, enzalutamide and abiraterone. He has had variable responses. Bone scan 10/07/2019 showed possible bone metastasis in the lower cervical spine. MR cervial spine showed C6 metastasis. He was started on palliative chemotherapy with Docetaxel 75 mg/m2 on 10/15/2019. Assessment: Patient has tolerated the first cycle of the chemotherapy well. No neutropenia fever. No nausea no vomiting. Patient does report lower back pain has already improved. I reviewed the lab results today with the patient. Total white blood cell count 10.6, hemoglobin and hematocrit level are appropriate. The platelet counts 153. CMP was unremarkable except mild hypokalemia 3.2, and elevated alk-phos level. I talked with the patient that I will proceed with scheduled chemotherapy cycle 2. Today I also talked with the patient about the MR cervical spine report there is a C6 vertebra metastasis. No clinical symptoms. No spinal cord impingement. I talked with the patient that I continue follow up closely. Given the bone metastasis, I talked with the patient that I usually would recommend bone medications including either Xgeva or Zometa infusion. I have advised the patient to get a dental clearance because these medications are associated with rare side effects of osteonecrosis of the jaw. Plan: Ok to proceed to Cycle 2# Docetaxel 75 mg daily with plan to do 10 cycles Dental clearance for Xgeva RTC in 3 week for Cycle 3#, labs per treatment plan (2) Neuroendocrine carcinoma metastatic to liver This patient has longstanding, 20+ year history of metastatic well-differentiated NET to liver. At this point he remains asymptomatic, is not on therapy, and there is no evidence of radiographic progression. He has no symptoms of hormonally active neuroendocrine tumor and has no carcinoid syndrome. His CT abdomen with contrast of October 07, 2019 shows only ?scattered small hepatic calcified radiodensities consistent with old granulomatous disease?. There is no definitive evidence that he has active neuroendocrine tumor. Continue to monitor. (3) Port-A-Cath in place Flush every 4-6 weeks
[2019-11-06] MEDS: FAMOTIDINE 20 MG/50 ML PIGGYBACK 200 MG IV (12:18)
[2019-11-06] MEDS: diphenhydrAMINE 50 MG/ML VIAL 25 MG IV (12:48)
[2019-11-06] MEDS: DOCETAXEL IV (13:15)
[2019-11-06] MEDS: SODIUM CHLORIDE EXCEL IV (13:15)
--- NOTE | 2019-11-06 13:33 | PC.NURSE ---
While pt was in with Dr. Jiménez for appointment. This science writer spoke with pt's in the waiting room. At time of appointment pt s was not allowed to go into appointment room r/t to minimizing all visitors during COVID crisis. Pt's explained to this science writer that pt has cognitive decline, forgetfulness, and has issues with processing information. Pt's further expresses frustration that she is not able to sit with pt during the visit. Pt states he can't remember anything. he gets so confused. Pt's reports cognitive decline has been increasing over the past 4 years. Pt's also states, if I'm not back there, he will get all confused. He'll just nod his head yes to the doctor, even if he doesn't understand. Listen to SO express her concerns. Informed her that this science writer and clinic staff were unaware of pt's inability to process information and increased confusion. Pt historically has seemed engaged, asks appropriate questions, remembers previous discussions regarding care. Apologize to and explained that the new visitor format is in place to help keep the high volume of immuno-compromised pts as safe as possible, as well as staff. Assured pt's the clinic is doing their very best during this unprecedented time. While finishing up conversation with SO and about to bring pt's back, Dr. Jiménez came out to see pt's and answer any questions. This science writer informed Dr. Jiménez of pt's concerns and reported pt's memory and processing issues, per . After Dr. Jiménez completed answering all of her questions, this winter escorted back to sit with her during treatment infusing.
[2019-11-27 09:58] LABS: Add Manual Diff / Slide Review NO; Basophils Absolute Auto 0 /uL (0-100); Basophils Percent Auto 0.6 % (0-2); Eosinophils Absolute Auto 100 /uL (0-450); Eosinophils Percent Auto 0.8 % (2-4); Hematocrit 35.6 % (41-53); Hemoglobin 11.8 g/dL (13.5-17.5); Lymphocytes Absolute Auto 1400 /uL (1100-4500); Lymphocytes Percent Auto 16.7 % (25-40); Mean Corpuscular Hemoglobin 26.2 PG (26-34); Mean Corpuscular Volume 79.3 fL (80-100); Monocytes Absolute Auto 800 /uL (0-900); Monocytes Percent Auto 8.9 % (3-14); Neutrophils Absolute Auto 6200 /uL (1500-7000); Platelet Count 191 X10^3/uL (150-400); Red Blood Cell Count 4.49 X10^6/uL (4.5-5.9); Red Cell Distribution Width 15.8 % (11.6-14.8); White Blood Cell Count 8.5 X10^3/uL (4.5-11.0)
--- NOTE | 2019-11-27 10:08 | P.PNONC_ITS ---
PN -Subjective Interval history: ID/CC: 64 year old male with 1. Remote history of metastatic well-differentiated neuroendocrine tumor. 2. metastatic castrate resistant prostate adenocarcinoma. He presents for scheduled cycle 3# docetaxel. HPI: Mr. José Miguel Carrillo is a 64-year-old gentleman with castrate resistant M0 prostate adenocarcinoma. He has a remote history of metastatic well-differentiated neuroendocrine tumor. He was under care of Dr. Hussein at [facility] in [place]. He was treated with hepatic arterial chemoinfusion and chemoembolization with good response in liver metastases. He was on somatostatin analog therapy for a long time, eventually he quitted in 2014. He has chronic inactive residual disease. He has no current issues with NET. In 2014 while living in [place], PSA was found to be 48. TRUS prostate biopsy in 07/2015 at was positive for Enio 4 + 4 adenocarcinoma. He was treated with definitive EBRT (11/2015 - 01/2016), given concurrently with neoadjuvant/concurrent/adjuvant ADT (goserelin), although stopped adjuvant early. Later in 03/2017, he resumed complete androgen blockade with goserelin plus Casodex for rising PSA, 3.28. Later he stopped Casodex in 07/2017, added again in 12/2017, stopped again in 03/2018. Then, he received apalutamide from 03/2018 to 02/2019. He initially had a marked PSA response (maida 0.131 on 10/03/2018, from baseline 2.18 on 05/16/2018), then it started to rise. He tried Enzalutamide, 02/2019-04/2019, with no PSA response. He was then put on abiraterone/prednisone from 04/2019 to 09/2019. Previous CT C/A/P with contrast and WB bone scan (04/16/2019) were negative for evidence of metastatic disease, i.e. M0 disease. CT scan of chest abdomen and pelvis with contrast of October 07, 2019: No evidence of visceral metastases. Status post surgical prostatectomy. No adenopathy. Whole-body bone scan of October 07, 2019 however showed focal increased uptake in the lower cervical spine which was present on previous bone scan of April 16, 2019, however was more intense. No other areas of abnormal uptake. The patient underwent MR cervical spine on 10/23/2019. The scan showed findings within the C6 vertebral body highly suspicious for metastatic disease. Clinically, patient reports no neck pain. No other bone pain. He was started chemotherapy with single agent Taxotere on 10/15/2019. Interval Events: He presents here today for cycle 3 chemotherapy. Overall patient said that he felt more tired. He also had an episode of panic attack. Patient said that the main problem with the chemotherapy was the whole body aches and pain about 2-3 days after the chemotherapy. Patient said that he had to use the hydrocodone twice a day. Previously, he has managed not to use hydrocodone for almost 10 days. The pain has affected the whole body especially the lower back. Pain level even at the baseline was about 6/10. Otherwise patient reports no fever, no chills, no nausea, no vomiting,. Patient does have urinary urgency and frequent urination. Patient denies any significant neck problems. He denies any tingling or numbing of the arms or legs. Treatment Summary: 1. Neoadjuvant/concurrent/adjuvant Zoladex, 10/2015 - 04/2016, with EBRT 11/2015 -01/2016 2. EBRT was complicated by rectal ulcers requiring hyperbaric oxygen therapy 3. Resumption of Zoladex with Casodex beginning March 2017. Casodex was stopped due to suicidal ideation. 4. Apalutamide, 03/2018 - 02/2019 5. Enzalutamide, 02/2019 - 04/2019 6. Abiraterone and prednisone, 04/2019 - 08/2019 7. Docetaxel 10/15/2019 8. For his neuroendocrine tumor, he underwent hepatic artery chemo infusion and chemoembolization in remote past - Patient Self-Reported Symptoms SR Constitution: Chills, Fatigue/Malaise, Night Sweats SR ears, nose, mouth, throat issues: Ears ringing SR respiratory issues: Shortness of breath SR Cardiovascular issues: Dizzy/lightheaded SR Skin issues: Dry skin, Blistering or peeling SR Gastrointestinal issues: Poor or no appetite, Nausea, Vomiting, Diarrhea, Constipation SR Genitourinary issues: Frequent urination SR Musculoskeletal issues: Muscle weakness, Difficulty walking SR Neuro issues: Tremors or shaking, Difficulty balancing SR Endocrine issues: Cold intolerance, Heat intolerance, Excessive thirst, Hot flashes - Additional ROS All systems PM: reviewed and no additional remarkable complaints except as stated (those mentioned in HPI, Interval History and SR above.) Home Medications and Allergies Home Medications Medication Instructions Recorded Confirmed Type [CANNIBUS OIL] #0 06/01/17 History lorazepam [Ativan] 0.5 mg PO QD-BID PRN 07/25/18 11/27/19 History nitroglycerin 0.4 mg SUBLINGUAL Q5-15M PRN 07/25/18 11/27/19 History sertraline [Zoloft] 50 mg PO DAILY 02/12/19 11/27/19 History ondansetron 8 mg PO Q8H 30 Days #30 tab 03/18/19 10/06/19 Rx hydrocodone-acetaminophen [[place]] 1 tab PO Q4H PRN #10 tab 10/06/19 11/27/19 Rx hydrocodone-acetaminophen 1 tab PO Q6H PRN #60 tab 11/06/19 11/27/19 Rx Allergies Allergy/AdvReac Type Severity Reaction Status Date / Time oxycodone [From PERCOCET] Allergy Severe coma, Verified 10/06/19 09:09 epinephrine [EPINEPHRINE] AdvReac Intermediate Verified 10/06/19 09:09 shellfish derived AdvReac Intermediate Verified 10/06/19 09:09 [SHELLFISH DERIVED] nuts Allergy Unknown Uncoded 10/06/19 09:09 eggs AdvReac Severe unknown Uncoded 10/06/19 09:09 Exam Vital signs: 11/27/19 17:58 Last Vital Signs Temp 98.5 F 11/27/19 10:09 Pulse 72 11/27/19 10:09 Resp 18 11/27/19 10:09 BP 155/90 H 11/27/19 10:09 Pulse Ox 98 11/27/19 10:09 Narrative: ECOG 1 Vitals above reviewed Constitutional: WDWN, well nourished, and well groomed. NAD. Pleasant and cooperative. HEENT: NCAT, EOMI, PERRLA, anicteric sclera. Respiratory: No use of accessory muscles Musculoskeletal: normal gait and station Neurological: AOx3, CN II-XII grossly intact. No focal motor or sensory deficit. Psychiatric: normal mood and affect. Results - Labs Laboratory Last Values WBC 8.5 X10^3/uL (4.5-11.0) 11/27/19 09:45 RBC 4.49 X10^6/uL (4.5-5.9) L 11/27/19 09:45 Hgb 11.8 g/dL (13.5-17.5) L 11/27/19 09:45 Hct 35.6 % (41-53) L 11/27/19 09:45 MCV 79.3 fL (80-100) L 11/27/19 09:45 MCH 26.2 PG (26-34) 11/27/19 09:45 MCHC 33.0 % (30-36) 11/27/19 09:45 RDW 15.8 % (11.6-14.8) H 11/27/19 09:45 Plt Count 191 X10^3/uL (150-400) 11/27/19 09:45 Neut % (Auto) 73.0 % (50-75) 11/27/19 09:45 Lymph % (Auto) 16.7 % (25-40) L 11/27/19 09:45 [place] % (Auto) 8.9 % (3-14) 11/27/19 09:45 Eos % (Auto) 0.8 % (2-4) L 11/27/19 09:45 Baso % (Auto) 0.6 % (0-2) 11/27/19 09:45 Neut # (Auto) 6200 /uL (6587-8280) 11/27/19 09:45 Lymph # (Auto) 1400 /uL (0034-5956) 11/27/19 09:45 [place] # (Auto) 800 /uL (0-900) 11/27/19 09:45 Eos # (Auto) 100 /uL (0-450) 11/27/19 09:45 Baso # (Auto) 0 /uL (0-100) 11/27/19 09:45 Sodium 140 mmol/L (137-145) 11/27/19 09:45 Potassium 3.6 mmol/L (3.4-5.1) 11/27/19 09:45 Chloride 102 mmol/L (98-107) 11/27/19 09:45 Carbon Dioxide 29 mmol/L (22-32) 11/27/19 09:45 BUN 16 mg/dL (9-20) 11/27/19 09:45 Creatinine 0.79 mg/dL (0.66-1.25) 11/27/19 09:45 Estimated GFR > 60.0 mL/min (>60) 11/27/19 09:45 BUN/Creatinine Ratio 20.3 (6-22) 11/27/19 09:45 Glucose 150 mg/dL (80-110) H 11/27/19 09:45 Calcium 9.2 mg/dL (8.4-10.2) 11/27/19 09:45 Iron 60 ug/dL (49-181) 03/21/18 10:13 TIBC 342 ug/dL (261-462) 03/21/18 10:13 % Saturation 18 % (20-50) L 03/21/18 10:13 Transferrin 274 mg/dL (206-381) 03/21/18 10:13 Total Bilirubin 0.4 mg/dL (0.2-1.3) 11/27/19 09:45 AST 38 IU/L (17-59) 11/27/19 09:45 ALT 30 IU/L (<50) 11/27/19 09:45 Alkaline Phosphatase 152 U/L (38-126) H 11/27/19 09:45 Lactate Dehydrogenase 498 U/L (313-618) 10/13/19 12:00 Total Protein 7.6 g/dL (6.3-8.2) 11/27/19 09:45 Albumin 4.2 g/dL (3.5-5.0) 11/27/19 09:45 Globulin 3.4 g/dL (1.7-4.1) 11/27/19 09:45 Albumin/Globulin Ratio 1.2 (1.0-2.8) 11/27/19 09:45 Prostate Specific Ag 4.48 ng/mL (0.10-4.00) H 11/27/19 09:45 Vitamin B12 489 pg/mL (239-931) 03/21/18 10:13 TSH 3.80 uIU/mL (0.47-4.68) 03/21/18 10:13 Testosterone Level 37.8 ng/dL (71.8-623) L 09/25/19 10:17 Assessment and Plan (1) Prostate cancer 64-year-old gentleman with metastatic CRPC. His prostate cancer was initially diagnosed in 2014, GS 4+4. He underwent definitive EBRT 11/2015-01/2016 with ADT. Throughout next couple of years, he has received casodex, apalutamide, enzalutamide and abiraterone. He has had variable responses. Bone scan 10/07/2019 showed possible bone metastasis in the lower cervical spine. MR cervial spine showed C6 metastasis. He was started on palliative chemotherapy with Docetaxel 75 mg/m2 on 10/15/2019. Assessment: First of all, I talked about Xgeva. Patient said that he has a very bad teeth. Because of the COVID-19 pandemic, dentist office has been closed. He has not been able to get dental clearance for Xgeva. I talked with him that it is not urgent, but I do want him to see the dentist and get the clearance before we start the treatment with Xgeva. Next I talked with patient about the chemotherapy. The lab shows that CBC and CMP are appropriate except with mildly elevated serum glucose level and very mild anemia. They are appropriate. The main problem with chemotherapy is the body aches 2-3 days after the treatment. Patient is trying not to use the narcotics. I talked with him that I recommend that he take hydrocodone for pain control. Good pain control can help him through the chemotherapy. Patient and h is voiced understanding. Plan: Ok to proceed to Cycle 3# Docetaxel 75 mg daily with plan to do 10 cycles Dental clearance for Xgeva pending RTC in 3 week for Cycle 4#, labs per treatment plan (2) Neuroendocrine carcinoma metastatic to liver This patient has longstanding, 20+ year history of metastatic well- differentiated NET to liver. At this point he remains asymptomatic, is not on therapy, and there is no evidence of radiographic progression. He has no symptoms of hormonally active neuroendocrine tumor and has no carcinoid syndrome. His CT abdomen with contrast of October 07, 2019 shows only ?scattered small hepatic calcified radiodensities consistent with old granulomatous disease?. Assessment and Plan: There is no definitive evidence that he has active neuroendocrine tumor. Continue to monitor. (3) Port-A-Cath in place Flush every 4-6 weeks
[2019-11-27 10:09] VITALS: BP 155/90; PULSE 72; RESP 18; TEMP 36.9; O2SAT 98
[2019-11-27 10:10] LABS: Alanine Aminotransferase 30 IU/L (<50); Albumin 4.2 g/dL (3.5-5.0); Albumin Globulin Ratio 1.2 (1.0-2.8); Alkaline Phosphatase 152 U/L (38-126); Aspartate Aminotransferase 38 IU/L (17-59); BUN Creatinine Ratio 20.3 (6-22); Bilirubin Total 0.4 mg/dL (0.2-1.3); Blood Urea Nitrogen 16 mg/dL (9-20); Calcium 9.2 mg/dL (8.4-10.2); Carbon Dioxide 29 mmol/L (22-32); Chloride 102 mmol/L (98-107); Estimated Glomerular Filt Rate > 60.0 mL/min (>60); Globulin 3.4 g/dL (1.7-4.1); Glucose 150 mg/dL (80-110); HEMOLYSIS < 15 (0-50); Potassium 3.6 mmol/L (3.4-5.1); Sodium 140 mmol/L (137-145); Total Protein 7.6 g/dL (6.3-8.2)
[2019-11-27 10:40] LABS: Prostate Specific Antigen 4.48 ng/mL (0.10-4.00)
[2019-11-27] MEDS: diphenhydrAMINE 50 MG/ML VIAL 25 MG IV (11:10)
[2019-11-27] MEDS: DEXAMETHASONE 10 MG/ML VIAL 8 MG IV (11:10)
[2019-11-27] MEDS: ONDANSETRON 8 MG in SODIUM CHLORIDE 0.9% 50 ML 216 ML IV (11:13)
[2019-11-27] MEDS: FAMOTIDINE 20 MG/50 ML PIGGYBACK 200 MG IV (11:35)
[2019-11-27] MEDS: SODIUM CHLORIDE 0.9% 100 ML 21 ML IV (11:39)
[2019-11-27] MEDS: DOCETAXEL IV (12:15)
[2019-11-27] MEDS: SODIUM CHLORIDE EXCEL IV (12:15)
[2019-12-18 09:17] LABS: Add Manual Diff / Slide Review NO; Basophils Absolute Auto 100 /uL (0-100); Basophils Percent Auto 0.5 % (0-2); Eosinophils Absolute Auto 100 /uL (0-450); Eosinophils Percent Auto 1.1 % (2-4); Hematocrit 34.8 % (41-53); Hemoglobin 11.7 g/dL (13.5-17.5); Lymphocytes Absolute Auto 1800 /uL (1100-4500); Lymphocytes Percent Auto 15.7 % (25-40); Mean Corpuscular HGB Conc 33.7 % (30-36); Mean Corpuscular Hemoglobin 26.1 PG (26-34); Mean Corpuscular Volume 77.5 fL (80-100); Monocytes Absolute Auto 1000 /uL (0-900); Monocytes Percent Auto 8.9 % (3-14); Neutrophils Absolute Auto 8300 /uL (1500-7000); Neutrophils Percent Auto 73.8 % (50-75); Platelet Count 191 X10^3/uL (150-400); Red Blood Cell Count 4.48 X10^6/uL (4.5-5.9); Red Cell Distribution Width 15.5 % (11.6-14.8); White Blood Cell Count 11.2 X10^3/uL (4.5-11.0)
[2019-12-18 09:23] VITALS: BP 158/84; PULSE 70; RESP 18; TEMP 36.8; O2SAT 96
[2019-12-18 09:27] LABS: Alanine Aminotransferase 26 IU/L (<50); Albumin 4.1 g/dL (3.5-5.0); Albumin Globulin Ratio 1.2 (1.0-2.8); Alkaline Phosphatase 226 U/L (38-126); Aspartate Aminotransferase 30 IU/L (17-59); BUN Creatinine Ratio 26.6 (6-22); Bilirubin Total 0.4 mg/dL (0.2-1.3); Blood Urea Nitrogen 21 mg/dL (9-20); Calcium 9.4 mg/dL (8.4-10.2); Carbon Dioxide 27 mmol/L (22-32); Chloride 103 mmol/L (98-107); Estimated Glomerular Filt Rate > 60.0 mL/min (>60); Globulin 3.4 g/dL (1.7-4.1); Glucose 172 mg/dL (80-110); HEMOLYSIS < 15 (0-50); Potassium 3.8 mmol/L (3.4-5.1); Sodium 139 mmol/L (137-145); Total Protein 7.5 g/dL (6.3-8.2)
--- NOTE | 2019-12-18 09:32 | P.PNONC_ITS ---
PN -Subjective Interval history: ID/CC: 64 year old male with 1. Remote history of metastatic well-differentiated neuroendocrine tumor. 2. metastatic castrate resistant prostate adenocarcinoma. He presents for scheduled cycle 3# docetaxel. HPI: Mr. José Miguel Carrillo is a 64-year-old gentleman with castrate resistant M0 prostate adenocarcinoma. He has a remote history of metastatic well-differentiated neuroendocrine tumor. He was under care of Dr. Hussein at [facility] in [place]. He was treated with hepatic arterial chemoinfusion and chemoembolization with good response in liver metastases. He was on somatostatin analog therapy for a long time, eventually he quitted in 2014. He has chronic inactive residual disease. He has no current issues with NET. In 2014 while living in [place], PSA was found to be 48. TRUS prostate biopsy in 07/2015 at was positive for Enio 4 + 4 adenocarcinoma. He was treated with definitive EBRT (11/2015 - 01/2016), given concurrently with neoadjuvant/concurrent/adjuvant ADT (goserelin), although stopped adjuvant early. Later in 03/2017, he resumed complete androgen blockade with goserelin plus Casodex for rising PSA, 3.28. Later he stopped Casodex in 07/2017, added again in 12/2017, stopped again in 03/2018. Then, he received apalutamide from 03/2018 to 02/2019. He initially had a marked PSA response (maida 0.131 on 10/03/2018, from baseline 2.18 on 05/16/2018), then it started to rise. He tried Enzalutamide, 02/2019-04/2019, with no PSA response. He was then put on abiraterone/prednisone from 04/2019 to 09/2019. Previous CT C/A/P with contrast and WB bone scan (04/16/2019) were negative for evidence of metastatic disease, i.e. M0 disease. CT scan of chest abdomen and pelvis with contrast of October 07, 2019: No evidence of visceral metastases. Status post surgical prostatectomy. No adenopathy. Whole-body bone scan of October 07, 2019 however showed focal increased uptake in the lower cervical spine which was present on previous bone scan of April 16, 2019, however was more intense. No other areas of abnormal uptake. The patient underwent MR cervical spine on 10/23/2019. The scan showed findings within the C6 vertebral body highly suspicious for metastatic disease. Clinically, patient reports no neck pain. No other bone pain. He was started chemotherapy with single agent Taxotere on 10/15/2019. Interval Events: He presents here today for cycle 4 chemotherapy. Patient told me that for the cycle 3, he did notice a little bit more problems especially fatigue. Patient also has experienced dizziness. He sustained a for about 10 days ago while he was in [place]. He was evaluated at an emergency room where an x-ray was obtained it showed some ?mild compression fracture?. No CT or MR was done. Active surveillance was recommended. Patient said that since then, the pain seems to be getting better. However he does admit that he is taking hydrocodone 3 to 4 times a day. Patient is also complaining weakness of the lower extremities. He said last night, he has quieted down and was not able to get up because of the weakness. He does not have any vomiting. He is able to keep things down and to hydrate himself. As far as the neck pain is concerned, he said he has not noticed any worsening leg pain since last time. Treatment Summary: 1. Neoadjuvant/concurrent/adjuvant Zoladex, 10/2015 - 04/2016, with EBRT 11/2015 -01/2016 2. EBRT was complicated by rectal ulcers requiring hyperbaric oxygen therapy 3. Resumption of Zoladex with Casodex beginning March 2017. Casodex was stopped due to suicidal ideation. 4. Apalutamide, 03/2018 - 02/2019 5. Enzalutamide, 02/2019 - 04/2019 6. Abiraterone and prednisone, 04/2019 - 08/2019 7. Docetaxel 10/15/2019 8. For his neuroendocrine tumor, he underwent hepatic artery chemo infusion and chemoembolization in remote past - Patient Self-Reported Symptoms SR Constitution: Chills, Weight loss/gain, Fatigue/Malaise SR ears, nose, mouth, throat issues: Ears ringing SR respiratory issues: Shortness of breath SR Cardiovascular issues: Shortness of breath with activity or lying flat SR Skin issues: Dry skin, Blistering or peeling SR Gastrointestinal issues: Poor or no appetite, Nausea SR Genitourinary issues: Frequent urination SR Musculoskeletal issues: Muscle weakness SR Neuro issues: Tremors or shaking, Difficulty balancing SR Endocrine issues: Cold intolerance, Heat intolerance, Excessive thirst, Hot flashes - Additional ROS All systems PM: reviewed and no additional remarkable complaints except as stated Home Medications and Allergies Home Medications Medication Instructions Recorded Confirmed Type [CANNIBUS OIL] 1 drp DAILY #0 06/01/17 12/18/19 History lorazepam [Ativan] 0.5 mg PO QD-BID PRN 07/25/18 12/18/19 History nitroglycerin 0.4 mg SUBLINGUAL Q5-15M PRN 07/25/18 12/18/19 History sertraline [Zoloft] 50 mg PO DAILY 02/12/19 12/18/19 History hydrocodone-acetaminophen [[place]] 1 tab PO Q4H PRN #10 tab 10/06/19 12/18/19 Rx hydrocodone-acetaminophen 1 tab PO Q6H PRN #60 tab 11/06/19 12/18/19 Rx ondansetron 8 mg PO Q12H PRN 12/18/19 12/18/19 History Allergies Allergy/AdvReac Type Severity Reaction Status Date / Time oxycodone [From PERCOCET] Allergy Severe coma, Verified 10/06/19 09:09 epinephrine [EPINEPHRINE] AdvReac Intermediate Verified 10/06/19 09:09 shellfish derived AdvReac Intermediate Verified 10/06/19 09:09 [SHELLFISH DERIVED] nuts Allergy Unknown Uncoded 10/06/19 09:09 eggs AdvReac Severe unknown Uncoded 10/06/19 09:09 Exam Vital signs: Vital Signs Temp Pulse Resp BP Pulse Ox 12/18/19 09:23 98.2 F 70 18 158/84 H 96 Intake and Output 12/17/19 12/18/19 12/18/19 23:59 07:59 15:59 Other: Weight 119 kg Patient Weight 12/18/19 23:59 Weight 119 kg Narrative: ECOG 1 Vitals above reviewed Constitutional: WDWN, well nourished, and well groomed. NAD. Pleasant and cooperative. HEENT: NCAT, EOMI, PERRLA, anicteric sclera. Respiratory: No use of accessory muscles Card: RRR, S1 and S2 normal, no wheezes. Abd: soft, non-tender. Musculoskeletal: mild tender at the lower back when palpated. Neurological: AOx3, CN II-XII grossly intact. No focal motor or sensory deficit. Psychiatric: normal mood and affect. Results - Labs Laboratory Last Values WBC 11.2 X10^3/uL (4.5-11.0) H 12/18/19 09:00 RBC 4.48 X10^6/uL (4.5-5.9) L 12/18/19 09:00 Hgb 11.7 g/dL (13.5-17.5) L 12/18/19 09:00 Hct 34.8 % (41-53) L 12/18/19 09:00 MCV 77.5 fL (80-100) L 12/18/19 09:00 MCH 26.1 PG (26-34) 12/18/19 09:00 MCHC 33.7 % (30-36) 12/18/19 09:00 RDW 15.5 % (11.6-14.8) H 12/18/19 09:00 Plt Count 191 X10^3/uL (150-400) 12/18/19 09:00 Neut % (Auto) 73.8 % (50-75) 12/18/19 09:00 Lymph % (Auto) 15.7 % (25-40) L 12/18/19 09:00 [place] % (Auto) 8.9 % (3-14) 12/18/19 09:00 Eos % (Auto) 1.1 % (2-4) L 12/18/19 09:00 Baso % (Auto) 0.5 % (0-2) 12/18/19 09:00 Neut # (Auto) 8300 /uL (9489-8545) H 12/18/19 09:00 Lymph # (Auto) 1800 /uL (9789-0308) 12/18/19 09:00 [place] # (Auto) 1000 /uL (0-900) H 12/18/19 09:00 Eos # (Auto) 100 /uL (0-450) 12/18/19 09:00 Baso # (Auto) 100 /uL (0-100) 12/18/19 09:00 Sodium 139 mmol/L (137-145) 12/18/19 09:00 Potassium 3.8 mmol/L (3.4-5.1) 12/18/19 09:00 Chloride 103 mmol/L (98-107) 12/18/19 09:00 Carbon Dioxide 27 mmol/L (22-32) 12/18/19 09:00 BUN 21 mg/dL (9-20) H 12/18/19 09:00 Creatinine 0.79 mg/dL (0.66-1.25) 12/18/19 09:00 Estimated GFR > 60.0 mL/min (>60) 12/18/19 09:00 BUN/Creatinine Ratio 26.6 (6-22) H 12/18/19 09:00 Glucose 172 mg/dL (80-110) H 12/18/19 09:00 Calcium 9.4 mg/dL (8.4-10.2) 12/18/19 09:00 Iron 60 ug/dL (49-181) 03/21/18 10:13 TIBC 342 ug/dL (261-462) 03/21/18 10:13 % Saturation 18 % (20-50) L 03/21/18 10:13 Transferrin 274 mg/dL (206-381) 03/21/18 10:13 Total Bilirubin 0.4 mg/dL (0.2-1.3) 12/18/19 09:00 AST 30 IU/L (17-59) 12/18/19 09:00 ALT 26 IU/L (<50) 12/18/19 09:00 Alkaline Phosphatase 226 U/L (38-126) H 12/18/19 09:00 Lactate Dehydrogenase 498 U/L (313-618) 10/13/19 12:00 Total Protein 7.5 g/dL (6.3-8.2) 12/18/19 09:00 Albumin 4.1 g/dL (3.5-5.0) 12/18/19 09:00 Globulin 3.4 g/dL (1.7-4.1) 12/18/19 09:00 Albumin/Globulin Ratio 1.2 (1.0-2.8) 12/18/19 09:00 Prostate Specific Ag 4.48 ng/mL (0.10-4.00) H 11/27/19 09:45 Vitamin B12 489 pg/mL (239-931) 03/21/18 10:13 TSH 3.80 uIU/mL (0.47-4.68) 03/21/18 10:13 Testosterone Level 37.8 ng/dL (71.8-623) L 09/25/19 10:17 Assessment and Plan (1) Prostate cancer Overview: 64-year-old gentleman with metastatic CRPC. His prostate cancer was initially diagnosed in 2014, GS 4+4. He underwent definitive EBRT 11/2015-01/2016 with ADT. Throughout next couple of years, he has received casodex, apalutamide, enzalutamide and abiraterone. He has had variable responses. Bone scan 10/07/2019 showed possible bone metastasis in the lower cervical spine. MR cervial spine showed C6 metastasis. He was started on palliative chemotherapy with Docetaxel 75 mg/m2 on 10/15/2019. Assessment: I reviewed the lab results with the patient. CBC and CMP are appropriate for proceeding with the chemotherapy. I also explained to the patient that the goal of the chemotherapy is palliative. It is not curative. Patient voiced understanding. I will proceed with scheduled chemotherapy cycle 4. Plan: Ok to proceed to Cycle 4# Docetaxel 75 mg daily, plan for 10 cycles Dental clearance for Xgeva pending RTC in 3 week for Cycle 5#, labs per treatment plan (2) Neuroendocrine carcinoma metastatic to liver This patient has longstanding, 20+ year history of metastatic well- differentiated NET to liver. At this point he remains asymptomatic, is not on therapy, and there is no evidence of radiographic progression. He has no symptoms of hormonally active neuroendocrine tumor and has no carcinoid syndrome. His CT abdomen with contrast of October 07, 2019 shows only ?scattered small hepatic calcified radiodensities consistent with old granulomatous disease?. Assessment and Plan: There is no definitive evidence that he has active neuroendocrine tumor. Continue to monitor. (3) Port-A-Cath in place Flush every 4-6 weeks
[2019-12-18 09:57] LABS: Prostate Specific Antigen 5.02 ng/mL (0.10-4.00)
[2019-12-18] MEDS: SODIUM CHLORIDE 0.9% 100 ML 21 ML IV (10:00)
[2019-12-18] MEDS: DEXAMETHASONE 10 MG/ML VIAL 8 MG IV (10:01)
[2019-12-18] MEDS: diphenhydrAMINE 50 MG/ML VIAL 25 MG IV (10:09)
[2019-12-18] MEDS: ONDANSETRON 8 MG in SODIUM CHLORIDE 0.9% 50 ML 216 ML IV (10:32)
[2019-12-18] MEDS: FAMOTIDINE 20 MG/50 ML PIGGYBACK 200 MG IV (10:57)
[2019-12-18] MEDS: SODIUM CHLORIDE EXCEL IV (11:28)
[2019-12-18] MEDS: DOCETAXEL IV (11:28)
--- NOTE | 2020-01-12 10:24 | ONC.MSW ---
Description: Continuation of Care T/C Activity: Pt's , Kristy, called this [employer] and was upset, stating that she thought that pt had his chemo scheduled for tomorrow, even though they had transferred their care to [facility]. She was upset that [facility] couldn't get pt in for treatment until late January, so was wanting to be at both places. [employer] explained that per our many conversations, the last plan that her and I discussed was that she and pt wanted to reschedule his treatment to 01/18, due to wanting to wait until the [place] border opened, thus delaying his tx by 1-week, which Dr. Jiménez agreed on. The very next day, Dr. Hope's nursed called this [employer] to state that pt's had been calling her wanting to schedule pt's chemo, to which [facility] was very confused. Pt's had insisted on transferring care to [facility], so we cancelled pt's appt. here on 01/12, and closed out his chart. We even faxed over his treatment plan to [facility] for his treatment regimen. Kristy now states that she wants to remain here at [facility]. [employer] had a long and direct conversation with her re: decision-making, and that if they are choosing to officially be seen here for his chemo, then they need to remain here, and not go back and forth. She and pt were agreeable to this plan. [employer] updated Rhiannon in pharmacy, as well as the business dean of this change. Pt is now scheduled to do his chemo here tomorrow, will be scheduled for further scans and MD visits once they come to clinic.
[2020-01-13 11:26] LABS: Add Manual Diff / Slide Review NO; Basophils Absolute Auto 0 /uL (0-100); Basophils Percent Auto 0.3 % (0-2); Eosinophils Absolute Auto 100 /uL (0-450); Eosinophils Percent Auto 0.8 % (2-4); Hematocrit 35.5 % (41-53); Hemoglobin 11.8 g/dL (13.5-17.5); Lymphocytes Absolute Auto 1800 /uL (1100-4500); Lymphocytes Percent Auto 13.8 % (25-40); Mean Corpuscular HGB Conc 33.2 % (30-36); Mean Corpuscular Hemoglobin 25.3 PG (26-34); Monocytes Absolute Auto 900 /uL (0-900); Monocytes Percent Auto 6.8 % (3-14); Neutrophils Absolute Auto 10100 /uL (1500-7000); Neutrophils Percent Auto 78.3 % (50-75); Platelet Count 166 X10^3/uL (150-400); Red Blood Cell Count 4.67 X10^6/uL (4.5-5.9); Red Cell Distribution Width 16.2 % (11.6-14.8); White Blood Cell Count 12.9 X10^3/uL (4.5-11.0)
[2020-01-13 11:30] VITALS: BP 175/111; PULSE 76; RESP 16; TEMP 36.7; O2SAT 96
[2020-01-13 11:35] LABS: Alanine Aminotransferase 32 IU/L (<50); Albumin 4.2 g/dL (3.5-5.0); Albumin Globulin Ratio 1.2 (1.0-2.8); Alkaline Phosphatase 233 U/L (38-126); Aspartate Aminotransferase 31 IU/L (17-59); BUN Creatinine Ratio 25.6 (6-22); Bilirubin Total 0.4 mg/dL (0.2-1.3); Blood Urea Nitrogen 20 mg/dL (9-20); Calcium 9.5 mg/dL (8.4-10.2); Carbon Dioxide 29 mmol/L (22-32); Chloride 105 mmol/L (98-107); Estimated Glomerular Filt Rate > 60.0 mL/min (>60); Globulin 3.5 g/dL (1.7-4.1); Glucose 94 mg/dL (80-110); HEMOLYSIS < 15 (0-50); Potassium 4.1 mmol/L (3.4-5.1); Sodium 141 mmol/L (137-145); Total Protein 7.7 g/dL (6.3-8.2)
[2020-01-13 11:50] VITALS: BP 159/102; PULSE 70; RESP 16
[2020-01-13 12:06] LABS: Prostate Specific Antigen 6.18 ng/mL (0.10-4.00)
[2020-01-13 12:41] VITALS: BP 176/106; PULSE 75
[2020-01-13] MEDS: diphenhydrAMINE 50 MG/ML VIAL 25 MG IV (13:16)
[2020-01-13] MEDS: DEXAMETHASONE 10 MG/ML VIAL 8 MG IV (13:24)
[2020-01-13] MEDS: ONDANSETRON 8 MG in SODIUM CHLORIDE 0.9% 50 ML 216 ML IV (13:29)
[2020-01-13] MEDS: FAMOTIDINE 20 MG/50 ML PIGGYBACK 200 MG IV (13:51)
[2020-01-13] MEDS: SODIUM CHLORIDE 0.9% 100 ML 21 ML IV (13:53)
[2020-01-13] MEDS: SODIUM CHLORIDE EXCEL IV (14:28)
[2020-01-13] MEDS: DOCETAXEL IV (14:28)
--- NOTE | 2020-01-13 15:52 | PC.NURSE ---
Pt expresses frustration r/t cancelling of appointments. Apparently, pt wanted to see Dr. Branch and transferred care to [facility], subsequently pt's appt's at this clinic were cancelled. According to conversation with this RN had with pt today, pt plans to complete treatment here at [facility]. Pt also verbalizes confusion to plan of care, stating Dr. Branch said I would do [address] Jiménez said that he usually does 6. This compliance review officer provider's dictation. Informed pt that per Dr. Branch's September progress note, he states Up to 10 cycles pt states oh, okay verbalizing understanding. Pt further expresses concern r/t rising PSA and the fact that his PCP, Dr. Reyes, wants him to have scans completed to assess progress of treatment. Informed Dr. Gonsalves of pt's concerns. Dr. Gonsalves reviewed recent bone scan and additional imaging from September as well as recent labs and PSA trends. Per Dr. Gonsalves, it would be appropriate to repeat scans after pt's 6th cycle of treatment. Dr. Gonsalves also recommending pt f/u with PCP r/t to high BP, pt agreeable and voices understanding I will. Discussed all of the above with pt's , Kristy. Kristy states thank you so much, I really appreciate the update.
[2020-02-02 11:07] LABS: Add Manual Diff / Slide Review NO; Basophils Absolute Auto 100 /uL (0-100); Basophils Percent Auto 0.7 % (0-2); Eosinophils Absolute Auto 100 /uL (0-450); Hematocrit 34.3 % (41-53); Hemoglobin 11.2 g/dL (13.5-17.5); Lymphocytes Absolute Auto 1500 /uL (1100-4500); Lymphocytes Percent Auto 15.3 % (25-40); Mean Corpuscular HGB Conc 32.7 % (30-36); Mean Corpuscular Hemoglobin 24.8 PG (26-34); Mean Corpuscular Volume 75.7 fL (80-100); Monocytes Absolute Auto 1000 /uL (0-900); Monocytes Percent Auto 9.9 % (3-14); Neutrophils Absolute Auto 7400 /uL (1500-7000); Neutrophils Percent Auto 73.1 % (50-75); Platelet Count 185 X10^3/uL (150-400); Red Blood Cell Count 4.53 X10^6/uL (4.5-5.9); Red Cell Distribution Width 17.3 % (11.6-14.8); White Blood Cell Count 10.1 X10^3/uL (4.5-11.0)
[2020-02-02 11:14] LABS: Alanine Aminotransferase 32 IU/L (<50); Albumin Globulin Ratio 1.2 (1.0-2.8); Alkaline Phosphatase 224 U/L (38-126); Aspartate Aminotransferase 35 IU/L (17-59); BUN Creatinine Ratio 23.5 (6-22); Bilirubin Total 0.4 mg/dL (0.2-1.3); Blood Urea Nitrogen 16 mg/dL (9-20); Calcium 9.3 mg/dL (8.4-10.2); Carbon Dioxide 28 mmol/L (22-32); Chloride 103 mmol/L (98-107); Estimated Glomerular Filt Rate > 60.0 mL/min (>60); Globulin 3.4 g/dL (1.7-4.1); Glucose 148 mg/dL (80-110); HEMOLYSIS < 15 (0-50); Potassium 3.9 mmol/L (3.4-5.1); Sodium 137 mmol/L (137-145); Total Protein 7.4 g/dL (6.3-8.2)
[2020-02-02 11:21] VITALS: BP 183/104; PULSE 69; RESP 16; TEMP 36.7
--- NOTE | 2020-02-02 11:22 | P.PNONC_ITS ---
PN -Subjective Interval history: ID/CC: 64 year old male with 1. Remote history of metastatic well-differentiated neuroendocrine tumor. 2. metastatic castrate resistant prostate adenocarcinoma. He presents for scheduled cycle 3# docetaxel. HPI: Mr. José Miguel Carrillo is a 64-year-old gentleman with castrate resistant M0 prostate adenocarcinoma. He has a remote history of metastatic well-differentiated neuroendocrine tumor. He was under care of Dr. Hussein at [facility] in [place]. He was treated with hepatic arterial chemoinfusion and chemoembolization with good response in liver metastases. He was on somatostatin analog therapy for a long time, eventually he quitted in 2014. He has chronic inactive residual disease. He has no current issues with NET. In 2014 while living in [place], PSA was found to be 48. TRUS prostate biopsy in 07/2015 at was positive for Enio 4 + 4 adenocarcinoma. He was treated with definitive EBRT (11/2015 - 01/2016), given concurrently with neoadjuvant/concurrent/adjuvant ADT (goserelin), although stopped adjuvant early. Later in 03/2017, he resumed complete androgen blockade with goserelin plus Casodex for rising PSA, 3.28. Later he stopped Casodex in 07/2017, added again in 12/2017, stopped again in 03/2018. Then, he received apalutamide from 03/2018 to 02/2019. He initially had a marked PSA response (maida 0.131 on 10/03/2018, from baseline 2.18 on 05/16/2018), then it started to rise. He tried Enzalutamide, 02/2019-04/2019, with no PSA response. He was then put on abiraterone/prednisone from 04/2019 to 09/2019. Previous CT C/A/P with contrast and WB bone scan (04/16/2019) were negative for evidence of metastatic disease, i.e. M0 disease. CT scan of chest abdomen and pelvis with contrast of October 07, 2019: No evidence of visceral metastases. Status post surgical prostatectomy. No adenopathy. Whole-body bone scan of October 07, 2019 however showed focal increased uptake in the lower cervical spine which was present on previous bone scan of April 16, 2019, however was more intense. No other areas of abnormal uptake. The patient underwent MR cervical spine on 10/23/2019. The scan showed findings within the C6 vertebral body highly suspicious for metastatic disease. Clinically, patient reports no neck pain. No other bone pain. He was started chemotherapy with single agent Taxotere on 10/15/2019. Interval Events: He is reporting esophageal spasm, abdominal pain, mild pain. He said that his memory is diminished. Treatment Summary: 1. Neoadjuvant/concurrent/adjuvant Zoladex, 10/2015 - 04/2016, with EBRT 11/2015 -01/2016 2. EBRT was complicated by rectal ulcers requiring hyperbaric oxygen therapy 3. Resumption of Zoladex with Casodex beginning March 2017. Casodex was stopped due to suicidal ideation. 4. Apalutamide, 03/2018 - 02/2019 5. Enzalutamide, 02/2019 - 04/2019 6. Abiraterone and prednisone, 04/2019 - 08/2019 7. Docetaxel 10/15/2019 8. For his neuroendocrine tumor, he underwent hepatic artery chemo infusion and chemoembolization in remote past - Patient Self-Reported Symptoms SR Constitution: Chills, Weight loss/gain, Fatigue/Malaise SR ears, nose, mouth, throat issues: Ears ringing SR respiratory issues: Shortness of breath SR Cardiovascular issues: Shortness of breath with activity or lying flat SR Skin issues: Dry skin, Blistering or peeling SR Gastrointestinal issues: Poor or no appetite, Nausea SR Genitourinary issues: Frequent urination SR Musculoskeletal issues: Muscle weakness SR Neuro issues: Tremors or shaking, Difficulty balancing SR Endocrine issues: Cold intolerance, Heat intolerance, Excessive thirst, Hot flashes - Additional ROS All systems PM: reviewed and no additional remarkable complaints except as stated Home Medications and Allergies Home Medications Medication Instructions Recorded Confirmed Type [CANNIBUS OIL] 1 drp DAILY #0 06/01/17 12/18/19 History lorazepam [Ativan] 0.5 mg PO QD-BID PRN 07/25/18 12/18/19 History nitroglycerin 0.4 mg SUBLINGUAL Q5-15M PRN 07/25/18 12/18/19 History sertraline [Zoloft] 50 mg PO DAILY 02/12/19 12/18/19 History hydrocodone-acetaminophen [Arden] 1 tab PO Q4H PRN #10 tab 10/06/19 12/18/19 Rx hydrocodone-acetaminophen 1 tab PO Q6H PRN #60 tab 11/06/19 12/18/19 Rx ondansetron 8 mg PO Q12H PRN 12/18/19 12/18/19 History Allergies Allergy/AdvReac Type Severity Reaction Status Date / Time oxycodone [From PERCOCET] Allergy Severe coma, Verified 10/06/19 09:09 epinephrine [EPINEPHRINE] AdvReac Intermediate Verified 10/06/19 09:09 shellfish derived AdvReac Intermediate Verified 10/06/19 09:09 [SHELLFISH DERIVED] nuts Allergy Unknown Uncoded 10/06/19 09:09 eggs AdvReac Severe unknown Uncoded 10/06/19 09:09 Exam Vital signs: 02/05/20 23:25 Last Vital Signs Temp 98.1 F 02/02/20 11:21 Pulse 69 02/02/20 11:21 Resp 16 02/02/20 11:21 BP 153/100 H 02/02/20 11:59 Pulse Ox 96 01/13/20 11:30 Narrative: ECOG 1 Vitals above reviewed Constitutional: WDWN, well nourished, and well groomed. NAD. 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 HEENT: NCAT, EOMI, PERRLA, anicteric sclera. Respiratory: No use of accessory muscles Card: RRR, S1 and S2 normal, no wheezes. Abd: soft, non-tender. Musculoskeletal: mild tender at the lower back when palpated. Neurological: AOx3, CN II-XII grossly intact. No focal motor or sensory deficit. Psychiatric: normal mood and affect. Results - Labs Laboratory Last Values WBC 10.1 X10^3/uL (4.5-11.0) 02/02/20 10:59 RBC 4.53 X10^6/uL (4.5-5.9) 02/02/20 10:59 Hgb 11.2 g/dL (13.5-17.5) L 02/02/20 10:59 Hct 34.3 % (41-53) L 02/02/20 10:59 MCV 75.7 fL (80-100) L 02/02/20 10:59 MCH 24.8 PG (26-34) L 02/02/20 10:59 MCHC 32.7 % (30-36) 02/02/20 10:59 RDW 17.3 % (11.6-14.8) H 02/02/20 10:59 Plt Count 185 X10^3/uL (150-400) 02/02/20 10:59 Neut % (Auto) 73.1 % (50-75) 02/02/20 10:59 Lymph % (Auto) 15.3 % (25-40) L 02/02/20 10:59 [place]apata % (Auto) 9.9 % (3-14) 02/02/20 10:59 Eos % (Auto) 1.0 % (2-4) L 02/02/20 10:59 Baso % (Auto) 0.7 % (0-2) 02/02/20 10:59 Neut # (Auto) 7400 /uL (4598-3849) H 02/02/20 10:59 Lymph # (Auto) 1500 /uL (6388-5362) 02/02/20 10:59 Zapata # (Auto) 1000 /uL (0-900) H 02/02/20 10:59 Eos # (Auto) 100 /uL (0-450) 02/02/20 10:59 Baso # (Auto) 100 /uL (0-100) 02/02/20 10:59 Sodium 137 mmol/L (137-145) 02/02/20 10:59 Potassium 3.9 mmol/L (3.4-5.1) 02/02/20 10:59 Chloride 103 mmol/L (98-107) 02/02/20 10:59 Carbon Dioxide 28 mmol/L (22-32) 02/02/20 10:59 BUN 16 mg/dL (9-20) 02/02/20 10:59 Creatinine 0.68 mg/dL (0.66-1.25) 02/02/20 10:59 Estimated GFR > 60.0 mL/min (>60) 02/02/20 10:59 BUN/Creatinine Ratio 23.5 (6-22) H 02/02/20 10:59 Glucose 148 mg/dL (80-110) H 02/02/20 10:59 Calcium 9.3 mg/dL (8.4-10.2) 02/02/20 10:59 Iron 60 ug/dL (49-181) 03/21/18 10:13 TIBC 342 ug/dL (261-462) 03/21/18 10:13 % Saturation 18 % (20-50) L 03/21/18 10:13 Transferrin 274 mg/dL (206-381) 03/21/18 10:13 Total Bilirubin 0.4 mg/dL (0.2-1.3) 02/02/20 10:59 AST 35 IU/L (17-59) 02/02/20 10:59 ALT 32 IU/L (<50) 02/02/20 10:59 Alkaline Phosphatase 224 U/L (38-126) H 02/02/20 10:59 Lactate Dehydrogenase 498 U/L (313-618) 10/13/19 12:00 Total Protein 7.4 g/dL (6.3-8.2) 02/02/20 10:59 Albumin 4.0 g/dL (3.5-5.0) 02/02/20 10:59 Globulin 3.4 g/dL (1.7-4.1) 02/02/20 10:59 Albumin/Globulin Ratio 1.2 (1.0-2.8) 02/02/20 10:59 Prostate Specific Ag 6.18 ng/mL (0.10-4.00) H 01/13/20 11:15 Vitamin B12 489 pg/mL (239-931) 03/21/18 10:13 TSH 3.80 uIU/mL (0.47-4.68) 03/21/18 10:13 Testosterone Level 37.8 ng/dL (71.8-623) L 09/25/19 10:17 Assessment and Plan (1) Prostate cancer Overview: 64-year-old gentleman with metastatic CRPC. His prostate cancer was initially diagnosed in 2014, GS 4+4. He underwent definitive EBRT 11/2015-01/2016 with ADT. Throughout next couple of years, he has received casodex, apalutamide, enzalutamide and abiraterone. He has had variable responses. Bone scan 10/07/2019 showed possible bone metastasis in the lower cervical spine. MR cervial spine showed C6 metastasis. He was started on palliative chemotherapy with Docetaxel 75 mg/m2 on 10/15/2019. Assessment: I reviewed the lab results with the patient. CBC and CMP are appropriate for proceeding with the chemotherapy. I talked with them that i will proceed with scheduled chemotherapy. We also reviewed the trend of PSA during the last 5 cycles. It clearly showed slowly upward trend. I talked with the patient that after today's chemotherapy I will obtain CT of chest abdomen pelvis as well as bone scan to evaluate the response to the treatment. Given the rising PSA, my impression has been that his prostate cancer has limited response to the treatment. I talked with him that the next line of treatment would be cabazitaxel. Which is usually toxic but it is effective. In addition recent data has shown the role of rucaparib and olaparib in patients whose tumor however home markers recommendation repair defect. I talked with the patient at that I will try to get the biopsy sample from the [facility] and send the sample for molecular testing. I will have the patient come back in 3 weeks for discussion. Plan: Ok to proceed to Cycle 6# Docetaxel 75 mg daily, plan for 10 cycles Dental clearance for Xgeva pending CT CAP w/contrast Bone scan TRUS sample (2015 ) for molecular testing RTC in 3 week for Cycle 5#, labs per treatment plan (2) Neuroendocrine carcinoma metastatic to liver This patient has longstanding, 20+ year history of metastatic well- differentiated NET to liver. At this point he remains asymptomatic, is not on therapy, and there is no evidence of radiographic progression. He has no symptoms of hormonally active neuroendocrine tumor and has no carcinoid syndrome. His CT abdomen with contrast of October 07, 2019 shows only ?scattered small hepatic calcified radiodensities consistent with old granulomatous disease?. Assessment and Plan: There is no definitive evidence that he has active neuroendocrine tumor. Continue to monitor. (3) Port-A-Cath in place Flush every 4-6 weeks
[2020-02-02 11:45] LABS: Prostate Specific Antigen 6.95 ng/mL (0.10-4.00)
[2020-02-02 11:59] VITALS: BP 153/100
[2020-02-02] MEDS: SODIUM CHLORIDE 0.9% 100 ML 21 ML IV (12:27)
[2020-02-02] MEDS: DEXAMETHASONE 10 MG/ML VIAL 8 MG IV (12:28)
[2020-02-02] MEDS: ONDANSETRON 8 MG in SODIUM CHLORIDE 0.9% 50 ML 216 ML IV (12:31)
[2020-02-02] MEDS: diphenhydrAMINE 50 MG/ML VIAL 25 MG IV (12:31)
[2020-02-02] MEDS: FAMOTIDINE 20 MG/50 ML PIGGYBACK 200 MG IV (12:49)
[2020-02-02] MEDS: SODIUM CHLORIDE EXCEL IV (13:21)
[2020-02-02] MEDS: DOCETAXEL IV (13:21)
--- NOTE | 2020-02-03 15:20 | ONC.SCHED ---
Per Jailyn's email, reached out to patient to switch to Dr. Gonsalves for next treatment. Spoke at length with patient's , Diana. They are currently in [place] and expressed concerns about border closing and forced quarantine whenever they do cross. She would like to have José Miguel get his labs, scans (bone scan/CT), doctor visit and treatment on same day. I informed her that it would be difficult to accomplish that and that the results of the scans would not be available for the doctor at the appointment. She is going to discuss with José Miguel and see what they would like to try to do. I assured her that we would try to do whatever we could for them, but that I thought she should probably discuss with triage after they decide what they'd like to try to do since Dr. Gonsalves would need to know his back-story and approve for him to have treatment on the same day as their first meeting without being able to review the results of the scans.
--- NOTE | 2020-02-11 13:16 | ONC.SCHED ---
Spoke with patient's , Diana, regarding upcoming appointments. She is unsure at this time whether they will be staying in [place] or returning to us for treatment. The bone scan and ct scans are scheduled and the fup with treatment as well, in case they need to complete everything here. She will call if they get approved for him to have his treatment temporarily in [place].
--- NOTE | 2020-03-01 13:55 | PC.NURSE ---
Called pt to check in after appointment was cancelled. Pt's Kristy answered the phone and explained they were having some difficulties coordinating care due to COVID and their current situation. She further explained having personal difficulties. She said that José Miguel was in good health. This nurse educated them to call the clinic if any concerning symptoms arise and if they needed any additional support. Pt verbalized appreciation and understanding. Pt will call to reschedule as soon as they are able. Making the provider aware with this note.
== END ==
PROVIDERS: Internal Medicine Hematology & Oncology; Nurse Practitioner Gerontology; Family Provider Family Medicine; PCP Family Medicine; Visit Provider Internal Medicine
DX: Z51.11 Encounter for antineoplastic chemotherapy (principal); C61 Malignant neoplasm of prostate; C7A.098 Malignant carcinoid tumors of other sites; C79.51 Secondary malignant neoplasm of bone; Z19.2 Hormone resistant malignancy status; Z95.828 Presence of other vascular implants and grafts
CPT/HCPCS: 36415; 36591; 71260; 74177; 78306; 80053; 82607; 83540; 83550; 83615; 84153; 84403; 84443; 85025; 90837; 96375; 96401; 96402; 96413; 96415; 99214; 99215; A9503; J1100; J1200; J2405; J3480; J7050; J9171; J9202; J9217; Q9967